=== PATIENT | female | born 1990 | race Caucasian/White ===

== ENCOUNTER 2017-10-21 10:30 | Outpatient (RCR) | payer OTHER, SELFPAY ==
--- NOTE | 2017-08-12 11:07 | PT.OIE ---
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 Address: [address] [place] [address], [id number] Email: Physical Therapy Initial Evaluation PT-OP-A Visit Information Start: 08/10/17 13:09 Freq: Status: Active Protocol: Document 08/10/17 13:10 [facility] (Rec: 08/10/17 13:44 [facility] [email or web address]) Out-Patient Physical Therapy Visit Information Visit Information Visit Type Initial Evaluation Visit Start Time 10:30 Visit Stop Time 11:15 Total Visit Minutes 45 Visit Number 1 Number of HYDRAULIC PUNCH PRESS OPERATOR Visits 0 Evaluation Information Evaluation Date 08/10/17 PT-OP-B Current Condition Start: 08/10/17 13:09 Freq: Status: Active Protocol: Document 08/10/17 13:10 [facility] (Rec: 08/10/17 13:44 [facility] [email or web address]) Current Condition History of Current Condition Onset Date following first delivery 2 years ago Current Complaints right sided hip and pelvic pain History of Current Condition Jackelyn is a 27 year old female who is 27 1/2 weeks with her second child . She is complaining of Right sided hip/groin and SI pain. This pain began after the of her first child but symtpoms have worsened with this . Pain increases with walking up stairs and with activities such as getting into and out of the car. She also notes urinary urgency that is also worsening since she became . Prior Treatments and Tests Jackelyn was given a SI belt by her doctor and she feels this has significantly helped her Treatment Goals Patient/Caregiver Goals Jackelyn's goals include reducing pain with Prior Functional Status Baseline Function- ADL's Independent Baseline Function- Mobility Independent Current Functional Impairments (Reported) Functional Limitations- Mobility/Gait limited with walking up stairs for activity, pain with single leg stance activities PT-OP-F Manual Assessment Start: 08/10/17 13:09 Freq: Status: Active Protocol: Document 08/10/17 13:10 [facility] (Rec: 08/10/17 13:44 [facility] [email or web address]) Manual Assessments Soft Tissue Assessment Soft Tissue Mobility Assessment tightness of the lumbar paraspinal musculature, myofascial restrictions in the Right piriformis and iliopsoas Joint Mobility Assessment Joint Mobility Assessment + tests for SI instability with PT-OP-J Posture/Palpation/Skin Start: 08/10/17 13:09 Freq: Status: Active Protocol: Document 08/10/17 13:10 [facility] (Rec: 08/10/17 13:44 [facility] [email or web address]) Posture Evaluation Position Standing Evaluation View Posterior L-Spine Posture Increased Lordosis Pelvis Posture Anteriorly Tilted Weight Distribution Weight Shifted Left Comments Posture Comments Jackelyn displays increased lumbar lordosis with Palpation Assessment Location Two Palpation Location lumbar and thoracic paraspinals Palpation Findings Soft Tissue Tightness Muscle Guarding One Palpation Location tenderness at the right SI joint and right pubic bone Palpation Findings Tenderness PT-OP-K Range of Motion Start: 08/10/17 13:09 Freq: Status: Active Protocol: Document 08/10/17 13:10 [facility] (Rec: 08/10/17 13:44 [facility] [email or web address]) Lumbar Spine Range of Motion Lumbar Spine Active Testing Position standing Flexion 50 ROM Limitations Soft Tissue Tightness Comments limited flexion of the lumbar spine as it is being held in extension, flattened lumbar spine noted with forward bend Hip Goniometric Range of Motion Hip Measured in Degrees Right Hip ROM WFL Yes Hip ROM Limitations Hip ROM Limitations Soft Tissue Tightness Pain Comments pain standing hip flexion and with hip IR/ER in supine and standing. PT-OP-M Strength Start: 08/10/17 13:09 Freq: Status: Active Protocol: Document 08/10/17 13:10 [facility] (Rec: 08/10/17 13:44 [facility] [email or web address]) Trunk Strength Trunk Manual Muscle Testing Core Stabilization decreased core stabilization and difficulty sustaining a transverse abdominal contraction for greater than a few seconds PT-OP-Q Treatments Start: 08/10/17 13:09 Freq: Status: Active Protocol: Document 08/10/17 13:10 [facility] (Rec: 08/10/17 13:44 [facility] [email or web address]) Therapeutic Exercises Supine Exercises 1 Supine Exercise Name isometric ball squeeze Side bilateral Reps/Minutes 10 reps holding for 5 seconds Other Exercises 1 Other Exercise Name quadraped cat/cow, alfredo pose and TA stabilization Side bilateral Reps/Minutes 10 reps Manual Therapy Treatment Manual Techniques 1 Type MET right anteriorly rotated innominant Body Position Sidelying Reps/Duration 5 reps Comments left sidelying position Self-Care/Home Management Treatment Education Patient Education Body Mechanics Home Exercise Program Joint Protection Pain Management Posture PT-OP-T Assessment and Plan Start: 08/10/17 13:09 Freq: Status: Active Protocol: Document 08/10/17 13:10 [facility] (Rec: 08/10/17 13:44 [facility] [email or web address]) Physical Therapy Assessment Rehab Potential Rehabilitation Potential Excellent Evaluation Complexity Number of Personal Factors/Comorbidities 0 Number of Body Systems Impaired 1-2 Clinical Presentation at Evaluation Stable Impairments Impairments Activity Tolerance Pain Posture ROM Soft Tissue Mobility Strength Goals Four Impairment Decreased lumbar flexion Short Term Goal (STG) Improve lumbar flexion with both manual techniques and a home flexibility program. 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 She has responded well to the SI belt and is wearing this for work related activities. With examination today h had quite a bit of SI instability and weakness of her core musculature. She stands with an exaggerated lumbar lordosis and has tightness in the lumbar paraspinals and gluteal musculature. I started her with a stretching program for her low back and core activitation exercises today safe for . She tolerated this well Please Sign and Return: I have reviewed this Plan of Care and certify that the skilled therapy services above are required to meet the patient?s needs. Physician Signature Date Printed Name and Credentials Clinical Instructor Signature Printed Name and Credentials
--- NOTE | 2017-09-09 18:42 | PT.OTN ---
Current Diagnoses Other specified diseases and conditions complicating , childbirth and the puerperium (09/09/17) Physical Therapy Treatment Note PT-OP-A Visit Information Start: 08/10/17 13:09 Freq: Status: Active Protocol: Document 09/09/17 18:36 [facility] (Rec: 09/09/17 18:42 [facility] [email or web address]) Out-Patient Physical Therapy Visit Information Visit Information Visit Type Treatment Note Visit Start Time 11:15 Visit Stop Time 12:00 Total Visit Minutes 45 Visit Number 2 Number of SAND FILLER Visits 0 PT-OP-B Current Condition Start: 08/10/17 13:09 Freq: Status: Active Protocol: Document 08/10/17 13:10 [facility] (Rec: 08/10/17 13:44 [facility] [email or web address]) Current Condition History of Current Condition Onset Date following first delivery 2 years ago Current Complaints right sided hip and pelvic pain History of Current Condition Jackelyn is a 27 year old female who is 27 1/2 weeks with her second child . She is complaining of Right sided hip/groin and SI pain. This pain began after the of her first child but symtpoms have worsened with this . Pain increases with walking up stairs and with activities such as getting into and out of the car. She also notes urinary urgency that is also worsening since she became . Prior Treatments and Tests Jackelyn was given a SI belt by her doctor and she feels this has significantly helped her Treatment Goals Patient/Caregiver Goals Jackelyn's goals include reducing pain with Prior Functional Status Baseline Function- ADL's Independent Baseline Function- Mobility Independent Current Functional Impairments (Reported) Functional Limitations- Mobility/Gait limited with walking up stairs for activity, pain with single leg stance activities PT-OP-C Subjective Start: 08/10/17 13:09 Freq: Status: Active Protocol: Document 09/09/17 18:36 [facility] (Rec: 09/09/17 18:42 [facility] [email or web address]) OP-PT Subjective Patient Comments Patient Comments Jackelyn reports some of the exercises were difficult for her to do but she has been trying. She was sore for a few days after the first visit and starting her new exercises. Her SI pain is on the left side today PT-OP-F Manual Assessment Start: 08/10/17 13:09 Freq: Status: Active Protocol: Document 08/10/17 13:10 [facility] (Rec: 08/10/17 13:44 [facility] [email or web address]) Manual Assessments Soft Tissue Assessment Soft Tissue Mobility Assessment tightness of the lumbar paraspinal musculature, myofascial restrictions in the Right piriformis and iliopsoas Joint Mobility Assessment Joint Mobility Assessment + tests for SI instability with PT-OP-J Posture/Palpation/Skin Start: 08/10/17 13:09 Freq: Status: Active Protocol: Document 08/10/17 13:10 [facility] (Rec: 08/10/17 13:44 [facility] [email or web address]) Posture Evaluation Position Standing Evaluation View Posterior L-Spine Posture Increased Lordosis Pelvis Posture Anteriorly Tilted Weight Distribution Weight Shifted Left Comments Posture Comments Jackelyn displays increased lumbar lordosis with Palpation Assessment Location Two Palpation Location lumbar and thoracic paraspinals Palpation Findings Soft Tissue Tightness Muscle Guarding One Palpation Location tenderness at the right SI joint and right pubic bone Palpation Findings Tenderness PT-OP-K Range of Motion Start: 08/10/17 13:09 Freq: Status: Active Protocol: Document 08/10/17 13:10 [facility] (Rec: 08/10/17 13:44 [facility] [email or web address]) Lumbar Spine Range of Motion Lumbar Spine Active Testing Position standing Flexion 50 ROM Limitations Soft Tissue Tightness Comments limited flexion of the lumbar spine as it is being held in extension, flattened lumbar spine noted with forward bend Hip Goniometric Range of Motion Hip Measured in Degrees Right Hip ROM WFL Yes Hip ROM Limitations Hip ROM Limitations Soft Tissue Tightness Pain Comments pain standing hip flexion and with hip IR/ER in supine and standing. PT-OP-M Strength Start: 08/10/17 13:09 Freq: Status: Active Protocol: Document 08/10/17 13:10 [facility] (Rec: 08/10/17 13:44 [facility] [email or web address]) Trunk Strength Trunk Manual Muscle Testing Core Stabilization decreased core stabilization and difficulty sustaining a transverse abdominal contraction for greater than a few seconds PT-OP-Q Treatments Start: 08/10/17 13:09 Freq: Status: Active Protocol: Document 09/09/17 18:36 [facility] (Rec: 09/09/17 18:42 [facility] [email or web address]) Therapeutic Exercises Supine Exercises 2 Supine Exercise Name piriformis stretch Comments given in both supine and seated positions 1 Supine Exercise Name isometric ball squeeze Side bilateral Reps/Minutes 10 reps holding for 5 seconds Other Exercises 1 Other Exercise Name quadraped cat/cow, alfredo pose and TA stabilization Side bilateral Reps/Minutes 10 reps Manual Therapy Treatment Soft Tissue Mobilization 1 Body Location STM low back and sacral region and piriformis Comments body pillow used for comfort and positioning with . Manual Techniques 1 Type MET right anteriorly rotated innominant Body Position Sidelying Reps/Duration 5 reps Comments left sidelying position PT-OP-T Assessment and Plan Start: 08/10/17 13:09 Freq: Status: Active Protocol: Document 09/09/17 18:36 [facility] (Rec: 09/09/17 18:42 [facility] [email or web address]) Physical Therapy Assessment Assessment Summary Assessment Jackelyn tolerated treatment well today and notes improved movement of her hip following STM and stretching. She was able to sit and cross her ankle over the opp knee. Physical Therapy Plan Frequency and Duration Frequency of Treatment 1x/Week Duration of Treatment 8 weeks Plan of Care Start Date 08/10/17 Plan of Care End Date 10/05/17 Therapeutic Interventions Therapeutic Interventions Home Exercise Program Manual Therapy Patient/Caregiver Education Self-Care/Home Management Soft Tissue Mobilization Therapeutic Exercises Next Visit Focus/Plan Next Visit Plan continue to focus on SI stabilization, lumbar spine flexion, decreasing tightness in the gluteals and body mechanics training with
--- NOTE | 2017-09-22 10:56 | PT.OTN ---
Current Diagnoses Other specified diseases and conditions complicating , childbirth and the puerperium (09/16/17) Physical Therapy Treatment Note PT-OP-A Visit Information Start: 08/10/17 13:09 Freq: Status: Active Protocol: Document 09/16/17 10:30 [facility] (Rec: 09/22/17 10:56 [facility] [email or web address]) Out-Patient Physical Therapy Visit Information Visit Information Visit Type Treatment Note Visit Start Time 10:30 Visit Stop Time 11:15 Total Visit Minutes 45 Visit Number 3 Number of PIT CRANE OPERATOR Visits 0 PT-OP-B Current Condition Start: 08/10/17 13:09 Freq: Status: Active Protocol: Document 08/10/17 13:10 [facility] (Rec: 08/10/17 13:44 [facility] [email or web address]) Current Condition History of Current Condition Onset Date following first delivery 2 years ago Current Complaints right sided hip and pelvic pain History of Current Condition Jackelyn is a 27 year old female who is 27 1/2 weeks with her second child . She is complaining of Right sided hip/groin and SI pain. This pain began after the of her first child but symtpoms have worsened with this . Pain increases with walking up stairs and with activities such as getting into and out of the car. She also notes urinary urgency that is also worsening since she became . Prior Treatments and Tests Jackelyn was given a SI belt by her doctor and she feels this has significantly helped her Treatment Goals Patient/Caregiver Goals Jackelyn's goals include reducing pain with Prior Functional Status Baseline Function- ADL's Independent Baseline Function- Mobility Independent Current Functional Impairments (Reported) Functional Limitations- Mobility/Gait limited with walking up stairs for activity, pain with single leg stance activities PT-OP-C Subjective Start: 08/10/17 13:09 Freq: Status: Active Protocol: Document 09/16/17 10:30 [facility] (Rec: 09/22/17 10:56 [facility] [email or web address]) OP-PT Subjective Patient Comments Patient Comments Jackelyn reports she has been working on her home exercises PT-OP-F Manual Assessment Start: 08/10/17 13:09 Freq: Status: Active Protocol: Document 08/10/17 13:10 [facility] (Rec: 08/10/17 13:44 [facility] [email or web address]) Manual Assessments Soft Tissue Assessment Soft Tissue Mobility Assessment tightness of the lumbar paraspinal musculature, myofascial restrictions in the Right piriformis and iliopsoas Joint Mobility Assessment Joint Mobility Assessment + tests for SI instability with PT-OP-J Posture/Palpation/Skin Start: 08/10/17 13:09 Freq: Status: Active Protocol: Document 08/10/17 13:10 [facility] (Rec: 08/10/17 13:44 [facility] [email or web address]) Posture Evaluation Position Standing Evaluation View Posterior L-Spine Posture Increased Lordosis Pelvis Posture Anteriorly Tilted Weight Distribution Weight Shifted Left Comments Posture Comments Jackelyn displays increased lumbar lordosis with Palpation Assessment Location Two Palpation Location lumbar and thoracic paraspinals Palpation Findings Soft Tissue Tightness Muscle Guarding One Palpation Location tenderness at the right SI joint and right pubic bone Palpation Findings Tenderness PT-OP-K Range of Motion Start: 08/10/17 13:09 Freq: Status: Active Protocol: Document 08/10/17 13:10 [facility] (Rec: 08/10/17 13:44 [facility] [email or web address]) Lumbar Spine Range of Motion Lumbar Spine Active Testing Position standing Flexion 50 ROM Limitations Soft Tissue Tightness Comments limited flexion of the lumbar spine as it is being held in extension, flattened lumbar spine noted with forward bend Hip Goniometric Range of Motion Hip Measured in Degrees Right Hip ROM WFL Yes Hip ROM Limitations Hip ROM Limitations Soft Tissue Tightness Pain Comments pain standing hip flexion and with hip IR/ER in supine and standing. PT-OP-M Strength Start: 08/10/17 13:09 Freq: Status: Active Protocol: Document 08/10/17 13:10 [facility] (Rec: 08/10/17 13:44 [facility] [email or web address]) Trunk Strength Trunk Manual Muscle Testing Core Stabilization decreased core stabilization and difficulty sustaining a transverse abdominal contraction for greater than a few seconds PT-OP-Q Treatments Start: 08/10/17 13:09 Freq: Status: Active Protocol: Document 09/16/17 10:30 [facility] (Rec: 09/22/17 10:56 [facility] [email or web address]) Therapeutic Exercises Supine Exercises 2 Supine Exercise Name piriformis stretch Comments given in both supine and seated positions 1 Supine Exercise Name isometric ball squeeze Side bilateral Reps/Minutes 10 reps holding for 5 seconds Other Exercises 1 Other Exercise Name quadraped cat/cow, alfredo pose and TA stabilization Side bilateral Reps/Minutes 10 reps Manual Therapy Treatment Soft Tissue Mobilization 1 Body Location STM low back and sacral region and piriformis Comments body pillow used for comfort and positioning with . PT-OP-T Assessment and Plan Start: 08/10/17 13:09 Freq: Status: Active Protocol: Document 09/16/17 10:30 [facility] (Rec: 09/22/17 10:56 [facility] [email or web address]) Physical Therapy Assessment Assessment Summary Assessment Tolerating treatment welll and demonstrating improved TA recruitment Physical Therapy Plan Frequency and Duration Frequency of Treatment 1x/Week Duration of Treatment 8 weeks Plan of Care Start Date 08/10/17 Plan of Care End Date 10/05/17 Therapeutic Interventions Therapeutic Interventions Home Exercise Program Manual Therapy Patient/Caregiver Education Self-Care/Home Management Soft Tissue Mobilization Therapeutic Exercises Next Visit Focus/Plan Next Visit Plan continue to focus on SI stabilization, lumbar spine flexion, decreaseing tightness in the gluteals and body mechnics training with
--- NOTE | 2017-09-23 16:31 | PT.OTN ---
Current Diagnoses Other specified diseases and conditions complicating , childbirth and the puerperium (09/23/17) Physical Therapy Treatment Note PT-OP-A Visit Information Start: 08/10/17 13:09 Freq: Status: Active Protocol: Document 09/23/17 16:25 [facility] (Rec: 09/23/17 16:30 [facility] [email or web address]) Out-Patient Physical Therapy Visit Information Visit Information Visit Type Treatment Note Visit Start Time 11:15 Visit Stop Time 12:00 Total Visit Minutes 40 Visit Number 4 PT-OP-B Current Condition Start: 08/10/17 13:09 Freq: Status: Active Protocol: Document 08/10/17 13:10 [facility] (Rec: 08/10/17 13:44 [facility] [email or web address]) Current Condition History of Current Condition Onset Date following first delivery 2 years ago Current Complaints right sided hip and pelvic pain History of Current Condition Jackelyn is a 27 year old female who is 27 1/2 weeks with her second child . She is complaining of Right sided hip/groin and SI pain. This pain began after the of her first child but symtpoms have worsened with this . Pain increases with walking up stairs and with activities such as getting into and out of the car. She also notes urinary urgency that is also worsening since she became . Prior Treatments and Tests Jackelyn was given a SI belt by her doctor and she feels this has significantly helped her Treatment Goals Patient/Caregiver Goals Jackelyn's goals include reducing pain with Prior Functional Status Baseline Function- ADL's Independent Baseline Function- Mobility Independent Current Functional Impairments (Reported) Functional Limitations- Mobility/Gait limited with walking up stairs for activity, pain with single leg stance activities PT-OP-C Subjective Start: 08/10/17 13:09 Freq: Status: Active Protocol: Document 09/23/17 16:25 [facility] (Rec: 09/23/17 16:30 [facility] [email or web address]) OP-PT Subjective Patient Comments Patient Comments Jackelyn reports she is doing better, still has the left sided sciatica but is not in as much pain PT-OP-F Manual Assessment Start: 08/10/17 13:09 Freq: Status: Active Protocol: Document 08/10/17 13:10 [facility] (Rec: 08/10/17 13:44 [facility] [email or web address]) Manual Assessments Soft Tissue Assessment Soft Tissue Mobility Assessment tightness of the lumbar paraspinal musculature, myofascial restrictions in the Right piriformis and iliopsoas Joint Mobility Assessment Joint Mobility Assessment + tests for SI instability with PT-OP-J Posture/Palpation/Skin Start: 08/10/17 13:09 Freq: Status: Active Protocol: Document 08/10/17 13:10 [facility] (Rec: 08/10/17 13:44 [facility] [email or web address]) Posture Evaluation Position Standing Evaluation View Posterior L-Spine Posture Increased Lordosis Pelvis Posture Anteriorly Tilted Weight Distribution Weight Shifted Left Comments Posture Comments Jackelyn displays increased lumbar lordosis with Palpation Assessment Location Two Palpation Location lumbar and thoracic paraspinals Palpation Findings Soft Tissue Tightness Muscle Guarding One Palpation Location tenderness at the right SI joint and right pubic bone Palpation Findings Tenderness PT-OP-K Range of Motion Start: 08/10/17 13:09 Freq: Status: Active Protocol: Document 08/10/17 13:10 [facility] (Rec: 08/10/17 13:44 [facility] [email or web address]) Lumbar Spine Range of Motion Lumbar Spine Active Testing Position standing Flexion 50 ROM Limitations Soft Tissue Tightness Comments limited flexion of the lumbar spine as it is being held in extension, flattened lumbar spine noted with forward bend Hip Goniometric Range of Motion Hip Measured in Degrees Right Hip ROM WFL Yes Hip ROM Limitations Hip ROM Limitations Soft Tissue Tightness Pain Comments pain standing hip flexion and with hip IR/ER in supine and standing. PT-OP-M Strength Start: 08/10/17 13:09 Freq: Status: Active Protocol: Document 08/10/17 13:10 [facility] (Rec: 08/10/17 13:44 [facility] [email or web address]) Trunk Strength Trunk Manual Muscle Testing Core Stabilization decreased core stabilization and difficulty sustaining a transverse abdominal contraction for greater than a few seconds PT-OP-Q Treatments Start: 08/10/17 13:09 Freq: Status: Active Protocol: Document 09/23/17 16:25 [facility] (Rec: 09/23/17 16:30 [facility] [email or web address]) Manual Therapy Treatment Soft Tissue Mobilization 1 Body Location STM low back and sacral region and piriformis Comments body pillow used for comfort and positioning with . Manual Techniques 2 Type manual stretch for the hamstrings and piriformis 1 Type MET right anteriorly rotated innominant Body Position Sidelying Reps/Duration 5 reps Comments left sidelying position PT-OP-T Assessment and Plan Start: 08/10/17 13:09 Freq: Status: Active Protocol: Document 09/23/17 16:25 [facility] (Rec: 09/23/17 16:30 [facility] [email or web address]) Physical Therapy Assessment Assessment Summary Assessment Jackelyn reports she has been doing all her exercises at home and is doing better tightening the lower abdominal wall. Decreased sacral myofascial tightness today Physical Therapy Plan Frequency and Duration Frequency of Treatment 1x/Week Duration of Treatment 8 weeks Plan of Care Start Date 08/10/17 Plan of Care End Date 10/05/17 Therapeutic Interventions Therapeutic Interventions Home Exercise Program Manual Therapy Patient/Caregiver Education Self-Care/Home Management Soft Tissue Mobilization Therapeutic Exercises Next Visit Focus/Plan Next Visit Plan continue to focus on SI stabilization, lumbar spine flexion, decreaseing tightness in the gluteals and body mechnics training with
--- NOTE | 2017-09-30 18:41 | PT.OTN ---
Current Diagnoses Other specified diseases and conditions complicating , childbirth and the puerperium (09/30/17) Physical Therapy Treatment Note PT-OP-A Visit Information Start: 08/10/17 13:09 Freq: Status: Active Protocol: Document 09/30/17 10:30 AM[facility] (Rec: 09/30/17 18:41 AMH [email or web address]) Out-Patient Physical Therapy Visit Information Visit Information Visit Type Treatment Note Visit Start Time 10:30 Visit Stop Time 11:15 Total Visit Minutes 40 Visit Number 5 PT-OP-B Current Condition Start: 08/10/17 13:09 Freq: Status: Active Protocol: Document 08/10/17 13:10 AMH (Rec: 08/10/17 13:44 AMH [email or web address]) Current Condition History of Current Condition Onset Date following first delivery 2 years ago Current Complaints right sided hip and pelvic pain History of Current Condition Jackelyn is a 27 year old female who is 27 1/2 weeks with her second child . She is complaining of Right sided hip/groin and SI pain. This pain began after the of her first child but symtpoms have worsened with this . Pain increases with walking up stairs and with activities such as getting into and out of the car. She also notes urinary urgency that is also worsening since she became . Prior Treatments and Tests Jackelyn was given a SI belt by her doctor and she feels this has significantly helped her Treatment Goals Patient/Caregiver Goals Jackelyn's goals include reducing pain with Prior Functional Status Baseline Function- ADL's Independent Baseline Function- Mobility Independent Current Functional Impairments (Reported) Functional Limitations- Mobility/Gait limited with walking up stairs for activity, pain with single leg stance activities PT-OP-C Subjective Start: 08/10/17 13:09 Freq: Status: Active Protocol: Document 09/30/17 10:30 AMH (Rec: 09/30/17 18:41 AMH [email or web address]) OP-PT Subjective Patient Comments Patient Comments Jackelyn reports she can feel like baby has grown, she can feel increased Low back pressure, treatments are helping her PT-OP-F Manual Assessment Start: 08/10/17 13:09 Freq: Status: Active Protocol: Document 08/10/17 13:10 AMH (Rec: 08/10/17 13:44 AMH [email or web address]) Manual Assessments Soft Tissue Assessment Soft Tissue Mobility Assessment tightness of the lumbar paraspinal musculature, myofascial restrictions in the Right piriformis and iliopsoas Joint Mobility Assessment Joint Mobility Assessment + tests for SI instability with PT-OP-J Posture/Palpation/Skin Start: 08/10/17 13:09 Freq: Status: Active Protocol: Document 08/10/17 13:10 AMH (Rec: 08/10/17 13:44 AMH [email or web address]) Posture Evaluation Position Standing Evaluation View Posterior L-Spine Posture Increased Lordosis Pelvis Posture Anteriorly Tilted Weight Distribution Weight Shifted Left Comments Posture Comments Jackelyn displays increased lumbar lordosis with Palpation Assessment Location Two Palpation Location lumbar and thoracic paraspinals Palpation Findings Soft Tissue Tightness Muscle Guarding One Palpation Location tenderness at the right SI joint and right pubic bone Palpation Findings Tenderness PT-OP-K Range of Motion Start: 08/10/17 13:09 Freq: Status: Active Protocol: Document 08/10/17 13:10 AMH (Rec: 08/10/17 13:44 AMH [email or web address]) Lumbar Spine Range of Motion Lumbar Spine Active Testing Position standing Flexion 50 ROM Limitations Soft Tissue Tightness Comments limited flexion of the lumbar spine as it is being held in extension, flattened lumbar spine noted with forward bend Hip Goniometric Range of Motion Hip Measured in Degrees Right Hip ROM WFL Yes Hip ROM Limitations Hip ROM Limitations Soft Tissue Tightness Pain Comments pain standing hip flexion and with hip IR/ER in supine and standing. PT-OP-M Strength Start: 08/10/17 13:09 Freq: Status: Active Protocol: Document 08/10/17 13:10 AMH (Rec: 08/10/17 13:44 AMH [email or web address]) Trunk Strength Trunk Manual Muscle Testing Core Stabilization decreased core stabilization and difficulty sustaining a transverse abdominal contraction for greater than a few seconds PT-OP-Q Treatments Start: 08/10/17 13:09 Freq: Status: Active Protocol: Document 09/30/17 10:30 AMH (Rec: 09/30/17 18:41 AMH [email or web address]) Manual Therapy Treatment Soft Tissue Mobilization 1 Body Location STM low back and sacral region and piriformis Comments body pillow used for comfort and positioning with . Manual Techniques 3 Type sacral counter nutation Comments prone over body pillow, grade 11 with MFR 2 Type manual stretch for the hamstrings and piriformis 1 Type MET right anteriorly rotated innominant Body Position Sidelying Reps/Duration 5 reps Comments left sidelying position PT-OP-T Assessment and Plan Start: 08/10/17 13:09 Freq: Status: Active Protocol: Document 09/30/17 10:30 AMH (Rec: 09/30/17 18:41 AMH [email or web address]) Physical Therapy Assessment Assessment Summary Assessment Jackelyn notes sacral counter nutation techniques are helpful at relieving pain Physical Therapy Plan Frequency and Duration Frequency of Treatment 1x/Week Duration of Treatment 8 weeks Plan of Care Start Date 08/10/17 Plan of Care End Date 10/05/17 Therapeutic Interventions Therapeutic Interventions Home Exercise Program Manual Therapy Patient/Caregiver Education Self-Care/Home Management Soft Tissue Mobilization Therapeutic Exercises Next Visit Focus/Plan Next Note Type Treatment Note Next Visit Plan continue to focus on SI stabilization, lumbar spine flexion, decreaseing tightness in the gluteals and body mechnics training with
--- NOTE | 2017-10-14 13:36 | PT.OTN ---
Current Diagnoses Other specified diseases and conditions complicating , childbirth and the puerperium (10/14/17) Physical Therapy Treatment Note PT-OP-A Visit Information Start: 08/10/17 13:09 Freq: Status: Active Protocol: Document 10/14/17 13:19 AMH (Rec: 10/14/17 13:36 AMH [email or web address]) Out-Patient Physical Therapy Visit Information Visit Information Visit Type Progress Note Visit Start Time 10:30 Visit Stop Time 11:15 Total Visit Minutes 40 Visit Number 6 PT-OP-B Current Condition Start: 08/10/17 13:09 Freq: Status: Active Protocol: Document 08/10/17 13:10 AMH (Rec: 08/10/17 13:44 AMH [email or web address]) Current Condition History of Current Condition Onset Date following first delivery 2 years ago Current Complaints right sided hip and pelvic pain History of Current Condition Jackelyn is a 27 year old female who is 27 1/2 weeks with her second child . She is complaining of Right sided hip/groin and SI pain. This pain began after the of her first child but symtpoms have worsened with this . Pain increases with walking up stairs and with activities such as getting into and out of the car. She also notes urinary urgency that is also worsening since she became . Prior Treatments and Tests Jackelyn was given a SI belt by her doctor and she feels this has significantly helped her Treatment Goals Patient/Caregiver Goals Jackelyn's goals include reducing pain with Prior Functional Status Baseline Function- ADL's Independent Baseline Function- Mobility Independent Current Functional Impairments (Reported) Functional Limitations- Mobility/Gait limited with walking up stairs for activity, pain with single leg stance activities PT-OP-C Subjective Start: 08/10/17 13:09 Freq: Status: Active Protocol: Document 10/14/17 13:19 AMH (Rec: 10/14/17 13:36 AMH [email or web address]) OP-PT Subjective Patient Comments Patient Comments Increasing pressure in the pelvis region from baby. Feeling left sciatica and bilateral SI pain. PT-OP-F Manual Assessment Start: 08/10/17 13:09 Freq: Status: Active Protocol: Document 08/10/17 13:10 AMH (Rec: 08/10/17 13:44 AMH [email or web address]) Manual Assessments Soft Tissue Assessment Soft Tissue Mobility Assessment tightness of the lumbar paraspinal musculature, myofascial restrictions in the Right piriformis and iliopsoas Joint Mobility Assessment Joint Mobility Assessment + tests for SI instability with PT-OP-J Posture/Palpation/Skin Start: 08/10/17 13:09 Freq: Status: Active Protocol: Document 10/14/17 13:19 AMH (Rec: 10/14/17 13:36 AMH [email or web address]) Palpation Assessment Location Two Palpation Location lumbar and thoracic paraspinals Palpation Findings Soft Tissue Tightness Muscle Guarding PT-OP-K Range of Motion Start: 08/10/17 13:09 Freq: Status: Active Protocol: Document 08/10/17 13:10 AMH (Rec: 08/10/17 13:44 AMH [email or web address]) Lumbar Spine Range of Motion Lumbar Spine Active Testing Position standing Flexion 50 ROM Limitations Soft Tissue Tightness Comments limited flexion of the lumbar spine as it is being held in extension, flattened lumbar spine noted with forward bend Hip Goniometric Range of Motion Hip Measured in Degrees Right Hip ROM WFL Yes Hip ROM Limitations Hip ROM Limitations Soft Tissue Tightness Pain Comments pain standing hip flexion and with hip IR/ER in supine and standing. PT-OP-M Strength Start: 08/10/17 13:09 Freq: Status: Active Protocol: Document 08/10/17 13:10 AMH (Rec: 08/10/17 13:44 AMH [email or web address]) Trunk Strength Trunk Manual Muscle Testing Core Stabilization decreased core stabilization and difficulty sustaining a transverse abdominal contraction for greater than a few seconds PT-OP-Q Treatments Start: 08/10/17 13:09 Freq: Status: Active Protocol: Document 10/14/17 13:19 AMH (Rec: 10/14/17 13:36 AMH [email or web address]) Manual Therapy Treatment Soft Tissue Mobilization 1 Body Location STM low back and sacral region and piriformis Comments body pillow used for comfort and positioning with . Manual Techniques 4 Type sidelying iliopsoas stretch 3 Type sacral counter nutation Comments prone over body pillow, grade 11 with MFR 2 Type manual stretch for the hamstrings and piriformis 1 Type MET left anterior rotation Body Position Sidelying Reps/Duration 5 Comments right sidelying position PT-OP-T Assessment and Plan Start: 08/10/17 13:09 Freq: Status: Active Protocol: Document 10/14/17 13:19 AMH (Rec: 10/14/17 13:36 [facility] [email or web address]) Physical Therapy Assessment Assessment Summary Assessment Jackelyn notes sacral counter nutation techniques are helpful at relieving pain. She is two weeks away from her scheduled . She continues to gain releif from PT visits Physical Therapy Plan Frequency and Duration Frequency of Treatment 1x/Week Duration of Treatment 8 weeks Plan of Care Start Date 10/05/17 Plan of Care End Date 11/02/17 Therapeutic Interventions Therapeutic Interventions Home Exercise Program Manual Therapy Patient/Caregiver Education Self-Care/Home Management Soft Tissue Mobilization Therapeutic Exercises Next Visit Focus/Plan Next Note Type Treatment Note Next Visit Plan continue to focus on SI stabilization, lumbar spine flexion, decreaseing tightness in the gluteals and body mechnics training with
--- NOTE | 2017-10-24 14:27 | PT.OTN ---
Current Diagnoses Other specified diseases and conditions complicating , childbirth and the puerperium (10/21/17) Physical Therapy Treatment Note PT-OP-A Visit Information Start: 08/10/17 13:09 Freq: Status: Active Protocol: Document 10/21/17 10:30 AMH (Rec: 10/24/17 14:27 AMH [email or web address]) Out-Patient Physical Therapy Visit Information Visit Information Visit Type Treatment Note Visit Start Time 10:30 Visit Stop Time 11:15 Total Visit Minutes 40 Visit Number 7 PT-OP-B Current Condition Start: 08/10/17 13:09 Freq: Status: Active Protocol: Document 08/10/17 13:10 AMH (Rec: 08/10/17 13:44 AMH [email or web address]) Current Condition History of Current Condition Onset Date following first delivery 2 years ago Current Complaints right sided hip and pelvic pain History of Current Condition Jackelyn is a 27 year old female who is 27 1/2 weeks with her second child . She is complaining of Right sided hip/groin and SI pain. This pain began after the of her first child but symtpoms have worsened with this . Pain increases with walking up stairs and with activities such as getting into and out of the car. She also notes urinary urgency that is also worsening since she became . Prior Treatments and Tests Jackelyn was given a SI belt by her doctor and she feels this has significantly helped her Treatment Goals Patient/Caregiver Goals Jackelyn's goals include reducing pain with Prior Functional Status Baseline Function- ADL's Independent Baseline Function- Mobility Independent Current Functional Impairments (Reported) Functional Limitations- Mobility/Gait limited with walking up stairs for activity, pain with single leg stance activities PT-OP-C Subjective Start: 08/10/17 13:09 Freq: Status: Active Protocol: Document 10/21/17 10:30 AMH (Rec: 10/24/17 14:27 AMH [email or web address]) OP-PT Subjective Patient Comments Patient Comments Reports she is not experiencing any sciatic pain now but can't lay flat any more PT-OP-F Manual Assessment Start: 08/10/17 13:09 Freq: Status: Active Protocol: Document 08/10/17 13:10 AMH (Rec: 08/10/17 13:44 AMH [email or web address]) Manual Assessments Soft Tissue Assessment Soft Tissue Mobility Assessment tightness of the lumbar paraspinal musculature, myofascial restrictions in the Right piriformis and iliopsoas Joint Mobility Assessment Joint Mobility Assessment + tests for SI instability with PT-OP-J Posture/Palpation/Skin Start: 08/10/17 13:09 Freq: Status: Active Protocol: Document 10/14/17 13:19 AMH (Rec: 10/14/17 13:36 AMH [email or web address]) Palpation Assessment Location Two Palpation Location lumbar and thoracic paraspinals Palpation Findings Soft Tissue Tightness Muscle Guarding PT-OP-K Range of Motion Start: 08/10/17 13:09 Freq: Status: Active Protocol: Document 08/10/17 13:10 AMH (Rec: 08/10/17 13:44 AMH [email or web address]) Lumbar Spine Range of Motion Lumbar Spine Active Testing Position standing Flexion 50 ROM Limitations Soft Tissue Tightness Comments limited flexion of the lumbar spine as it is being held in extension, flattened lumbar spine noted with forward bend Hip Goniometric Range of Motion Hip Measured in Degrees Right Hip ROM WFL Yes Hip ROM Limitations Hip ROM Limitations Soft Tissue Tightness Pain Comments pain standing hip flexion and with hip IR/ER in supine and standing. PT-OP-M Strength Start: 08/10/17 13:09 Freq: Status: Active Protocol: Document 08/10/17 13:10 AMH (Rec: 08/10/17 13:44 AMH [email or web address]) Trunk Strength Trunk Manual Muscle Testing Core Stabilization decreased core stabilization and difficulty sustaining a transverse abdominal contraction for greater than a few seconds PT-OP-Q Treatments Start: 08/10/17 13:09 Freq: Status: Active Protocol: Document 10/21/17 10:30 AMH (Rec: 10/24/17 14:27 AMH [email or web address]) Manual Therapy Treatment Soft Tissue Mobilization 1 Body Location STM low back and sacral region and piriformis Comments treatment done in seated and sidelying positions Manual Techniques 4 Type sidelying iliopsoas stretch 3 Type sacral counter nutation Comments in a seated position PT-OP-T Assessment and Plan Start: 08/10/17 13:09 Freq: Status: Active Protocol: Document 10/21/17 10:30 AMH (Rec: 10/24/17 14:27 AMH [email or web address]) Physical Therapy Assessment Assessment Summary Assessment Jackelyn notes sacral counter nutation techniques are helpful at relieving pain. Her scheduled C section is 9./ 7/18. She will be discharged at this time until her post period Physical Therapy Plan Discharge Physical Therapy Discharge Reasons Goals Met
== END 2017-12-09 10:37 ==
LOC: PHYS 10:30
PROVIDERS: Visit Provider Obstetrics & Gynecology
DX: O99.89 Other specified diseases and conditions complicating pregnancy, childbirth and the puerperium (principal)
CPT/HCPCS: 97110; 97140; 97161

== ENCOUNTER 2017-11-05 06:05 | Inpatient (IN) | payer OTHER, SELFPAY ==
[2017-11-05] VITALS (7 sets, daily range): BP systolic 97–108; BP diastolic 50–68; PULSE 62–76; RESP 8–16; TEMP 36.3; O2SAT 99–100
--- NOTE | 2017-11-05 07:57 | PM.PREOP ---
Pre-operative Note Interval Note Pre-op Check: Yes History & Physical Reviewed by Physician Changes: No
[2017-11-05 08:11] LABS: Add Manual Diff / Slide Review NO; Basophils Percent Auto 0.8 % (0-2); Eosinophils Percent Auto 0.5 % (2-4); Hematocrit 35.7 % (36-46); Hemoglobin 12.3 g/dL (12.0-16.0); Lymphocytes Percent Auto 25.8 % (25-40); Mean Corpuscular HGB Conc 34.4 % (30-36); Mean Corpuscular Hemoglobin 30.9 PG (26-34); Mean Corpuscular Volume 89.7 fL (80-100); Neutrophils Absolute Auto 5800 /uL (3000-5900); Neutrophils Percent Auto 64.9 % (50-75); Platelet Count 153 X10^3/uL (150-400); Red Blood Cell Count 3.98 X10^6/uL (4.0-5.2); Red Cell Distribution Width 13.2 % (11.6-14.8)
[2017-11-05] MEDS: CEFAZOLIN 2 GM/100 ML FROZ.PIGGY IV (08:25)
--- NOTE | 2017-11-05 08:55 | SUR.OPER ---
Supine on Padded OR bed, head on pillow, safety belt at thigh, arms secured on padded arm boards at <90 degrees abduction. Bump under right buttock. Legs uncrossed with pillow under knees, gel pad to heels, tape over blanket to lower legs.
--- NOTE | 2017-11-05 09:11 | SUR.OPER ---
Healthy girl born 0840. heart tones 132 beats per minute at , 160 b/m 5 minutes after.
[2017-11-05] MEDS: LACTATED RINGERS 1,000 ML 100 ML IV ×2 (09:15→10:30)
[2017-11-05] MEDS: LACTATED RINGERS 1,000 ML 42 ML IV ×2 (09:16→10:22)
--- NOTE | 2017-11-05 09:51 | SUR.OPER ---
cordblood and placenta sent to l&d.
[2017-11-05] MEDS: fentaNYL 100 MCG/2 ML INJ 50 MCG IV (09:57)
[2017-11-05] MEDS: KETOROLAC 30 MG/ML VIAL IV ×3 (10:06→22:25)
--- NOTE | 2017-11-05 10:12 | PM.GYNOP.1 ---
Operative Date/Time/Diagnoses Date of procedure: 11/05/17 Time of procedure: 08:12 Pre-op diagnosis: Term , prior Post-op diagnosis: other (RASHARD, pelvic adhesions) Procedure: Procedures Operation Date: 11/05/17 07:45 Actual Procedures Side Surgeon p Section - Repeat Daisy Lynn MD Indications: The patient is a 27-year-old 2 para 1 at 39+ 5 weeks gestation here for scheduled repeat section. Her and obstetric history are notable for a prior with her last delivery, complicated by a hemorrhage with need to place a B-Chambers suture. This has also been notable for obesity, glucose intolerance, depression (takes Zoloft 50 mg daily), chronic low back pain, and intermittent premature ventricular contractions. The expectations, risks, benefits, limitations, expectations of surgery were discussed, and the consent was reviewed and signed prior to the date of surgery. Surgeon: Daisy Lynn Cnc Machinist 2Nd Shift: Cedrick Chisholm Anesthesia Type: Spinal Operative Notes Findings: Mild fascial adhesions were present. There were thin lower uterine segment adhesions and bladder adhesions. There was a dense bladder adhesion to the right lower aspect of the uterine incision. Fallopian tubes and ovaries were normal in appearance. Amniotic fluid was clear, and the baby was delivered from the right occiput transverse position. No nuchal cord was noted. The baby had excellent tone and color on the maternal abdomen. Closure Type: primary Specimen(s): none Applied: catheter Estimated blood loss (mL): 750 Blood products transfused: none Procedure in detail: The patient was taken to the operating room where spinal anesthetic was administered. She was given a small dose of Propofol to help with anxiety and achievement of optimal position for the spinal. She was then placed in the supine position with a hip roll under her right hip. A Castro catheter was placed, then the abdomen was prepped and draped in a sterile fashion. A procedure time-out was then performed. A Pfannenstiel skin incision was then made over the old scar using the scalpel. The subcutaneous tissue was then dissected down to the level of fascia using sharp dissection. The rectus fascia was then nicked at the midline, and this incision was extended bilaterally using curved Castle scissors and sharp dissection. The superior aspect of the rectus fascia was then grasped at the midline with 2 Adalgisa clamps and tented up while the rectus muscle was dissected off posteriorly using blunt dissection. Bovie cautery was utilized to ensure hemostasis. The Adalgisa clamps were then placed at the inferior aspect of the rectus fascia, and the rectus muscle was dissected off posteriorly in a similar fashion. The rectus muscle bellies were then bluntly dissected at the midline. The posterior sheath was then incised with Metzenbaum scissors, and the peritoneal opening enlarged using gentle traction from the surgeons. Bladder and peritoneal adhesions were noted and with a combination of blunt and sharp dissection. Bladder blade was then placed, and a bladder flap created in the usual fashion using Metzenbaum scissors. A low transverse hysterotomy incision was then made with a scalpel. The vertex was palpated, elevated, and delivered. Shoulders and corpus followed easily thereafter. Mouth and nose were suctioned, and the had excellent tone and color. Cord was clamped and cut, and the baby was taken to the warmer where Pedatrics team was in attendance for delivery. Cord blood was then obtained. The placenta was then removed with a combination of manual and expression maneuvers. Uterine tone was good with massage and initiation of Pitocin. The cervix was dilated with a ring forcep. The hysterotomy incision was then closed with a running locked suture of #1 Chromic followed by an imbricating suture using #1 Chromic. A dense right bladder adhesion was dissected sharply, taking care to avoid injury to the bladder. A [id number] suture was placed at the right apex of the incision at the location of some ongoing bleeding. The posterior cul-de-sac was suctioned and irrigated, and the uterus was replaced into the maternal abdomen. The peritoneal gutters were then wiped bilaterally with moist sponges, and the uterine incision was inspected. Some residual bleeding was controlled with Bovie cautery and a [id number] suture. The uterus was again exteriorized onto the maternal abdomen to help dissect an additional bladder adhesion on the right. This was performed with sharp dissection. There was no bleeding noted at this point. The peritoneum and rectus muscle bellies were then reapproximated at the midline using a running nonlocked suture of 2 Vicryl. The rectus muscle was then inspected and no residual bleeding noted. The rectus fascia was then closed with a nonlocked suture of [place] starting at the patient's left side and working toward the right. Subcutaneous tissue was then copiously irrigated and suctioned. Any residual bleeding was controlled with Bovie cautery. The tissue was then reapproximated with interrupted sutures of 2 Vicryl. The skin was then closed with a running subcuticular stitch of 4 0 Monocryl. Mastisol and Steri-Strips were then applied followed by pressure dressing. Crede maneuver was then performed with minimal blood clot or additional EBL. At this point the procedure was deemed complete. Sponge, lap, and needle counts were correct x3. The patient was subsequently transferred to the postanesthesia care unit in stable condition. Complications: none Post-operative Condition: stable Disposition: PACU Plan for aftercare: Admit to Center for routine postop and care.
--- NOTE | 2017-11-05 10:20 | SUR.PHASEI ---
REPORT CALLED TO DELL MARTIN IN CENTER. PT IN STABLE CONDITION, VSS. TRANSFERED PT TO CENTER AT THIS TIME.
[2017-11-05] MEDS: OXYCODONE/ACETAMINOPHEN 5/325 TABLET 2 TAB PO ×4 (11:43→23:52)
[2017-11-05] MEDS: HYDROCODONE/ACET 5/325 TABLET 2 TAB PO (13:29)
[2017-11-06] MEDS: OXYCODONE/ACETAMINOPHEN 5/325 TABLET 2 TAB PO ×5 (03:55→20:56)
[2017-11-06] MEDS: KETOROLAC 30 MG/ML VIAL IV (04:47)
--- NOTE | 2017-11-06 07:21 | PM.OBPN.1 ---
Subjective - OB Patient comments: pain well controlled and tolerating diet baby status: doing well and nursing well [place] feeding status: exclusively breast feeding Narrative: Castro catheter was removed last night. She has been up and ambulating in the room and is voiding without difficulty. Pain has been well controlled with Toradol and Percocet. Date Patient Seen: 11/06/17 Time Patient Seen: 07:22 Exam Vital Signs (past 8 hours): Oxygen Delivery Method Room Air Blood pressure 102/69, temperature 97.1?, pulse 81, respiratory rate 16, O2 sat 98% Narrative Exam Narrative: General: Sitting up in bed, alert and oriented x3, in no apparent distress. Lungs: Clear to auscultation bilaterally. No wheezes or crackles. Heart: Regular rate and rhythm with no murmurs, rubs, or gallops. Abdomen: Soft and appropriately tender. Bowel sounds heard throughout. Incision: Dressing clean, dry, and intact. Extremities: Warm and well-perfused with no clubbing or cyanosis. Trace edema noted. Objective Labs Result Diagrams: 11/05/17 06:30 Labs: Laboratory Results - last 24 hr 11/05/17 11/05/17 06:30 06:30 WBC 9.0 RBC 3.98 L Hgb 12.3 Hct 35.7 L MCV 89.7 MCH 30.9 MCHC 34.4 RDW 13.2 Plt Count 153 Neut % (Auto) 64.9 Lymph % (Auto) 25.8 [place] % (Auto) 8.0 Eos % (Auto) 0.5 L Baso % (Auto) 0.8 Neut # (Auto) 5800 Blood Type O Positive Antibody Screen Negative Assessment & Plan (1) delivery, delivered, current hospitalization: Problem details: Postoperative day 1 status post repeat section and doing well. -Continue routine postop and care and support. -Anticipate discharge home tomorrow. Status: Acute Current Visit: Yes Time Spent With Patient Total time spent is greater than 50% in coordination of care (as documented) at patient's floor/unit and/or counseling patient: less than 15 minutes
[2017-11-06 07:43] LABS: Add Manual Diff / Slide Review NO; Basophils Percent Auto 0.4 % (0-2); Eosinophils Percent Auto 0.5 % (2-4); Hematocrit 29.5 % (36-46); Hemoglobin 10.2 g/dL (12.0-16.0); Lymphocytes Percent Auto 16.9 % (25-40); Mean Corpuscular HGB Conc 34.7 % (30-36); Mean Corpuscular Hemoglobin 31.3 PG (26-34); Mean Corpuscular Volume 90.1 fL (80-100); Monocytes Percent Auto 9.2 % (3-14); Neutrophils Absolute Auto 6600 /uL (3000-5900); Platelet Count 127 X10^3/uL (150-400); Red Blood Cell Count 3.27 X10^6/uL (4.0-5.2); Red Cell Distribution Width 13.8 % (11.6-14.8); White Blood Cell Count 9.1 X10^3/uL (4.5-11.0)
[2017-11-06] MEDS: DOCUSATE 250 MG CAPSULE PO (09:13)
[2017-11-06] MEDS: SERTRALINE 50 MG TABLET PO (09:13)
[2017-11-07 00:56] VITALS: TEMP 36.5
[2017-11-07] MEDS: OXYCODONE/ACETAMINOPHEN 5/325 TABLET 2 TAB PO ×2 (00:56→05:14)
[2017-11-07] MEDS: LANOLIN OINT 7 GM 1 APPLIC TOP (00:56)
--- NOTE | 2017-11-07 08:19 | P.DS_ITS ---
Discharge Providers Date of admission: 11/05/17 06:05 Consults: 11/05/17 10:52 Consult to Relief Map Modeler Routine Comment: Discharge provider: Daisy Lynn MD Summary Date Patient Seen: 11/07/17 Time Patient Seen: 08:14 Hospital Course: After an uncomplicated repeat section, the patient was admitted to the recovery room and then the llanos in stable condition. Following some short-term pain control concerns, remedied with additional oral pain medication, she did well for the remainder of the hospitalization. Pain was well controlled with Toradol and Percocet as needed. Her Castro catheter was removed late in the evening of postoperative day number 0, and she met her due to void without any problem. On postoperative day 1, she was up and ambulating, tolerating a regular diet, and voiding freely. The baby was at the bedside and breast- feeding very well. On postoperative day 2, she reported she was passing flatus and was continuing to do well. She felt ready for discharge at that time. Peripartum Data Delivery Method: Section Laceration description: None Procedures: Repeat low-transverse section Lysis of adhesions complications: none Discharge Diagnosis (1) delivery, delivered, current hospitalization: Status: Acute Problem Details: Postoperative day 2 status post repeat delivery and doing well. Patient is meeting discharge criteria, and will discharged home today. Status at Discharge Cognitive/behavioral status at discharge: Appropriate and normal Functional status at discharge: independent ambulation Overall status at discharge: patient is progressing back to baseline Time Spent with Patient Total time spent providing and/or coordinating discharge services: Less than 30 minutes Specific discharge activities: Pelvic rest for 6 weeks. No heavy lifting or strenuous exercise for 6 weeks. No driving until pain free off narcotic pain medications (2-3 weeks). Objective Labs Result Diagrams: 11/06/17 07:34 Discharge Plan Discharge Plan Patient Disposition: Home Discharge comment: See discharge handout for instructions and precautions. Patient has postoperative medications already at home, including Motrin, Percocet, and Surfak. Discharge Med Rec/Prescriptions Follow up/Referrals: Daisy Lynn MD [Physician] - 11/15/17 3:20 pm (Appt already scheduled) Provider Discharge Instructions Diet: Diet as Tolerated Activity: Pelvic rest for 6 weeks. No heavy lifting or strenuous exercise for 6 weeks. No driving until pain free off narcotic pain medications. Cold/Heat Therapy: As desired for pain management Oxygen: None Other treatments: None Skin/Wound/Dressing Care Skin care: Keep the incision clean and dry Report to your healthcare provider any signs of infection, such as:: chills, fever, night sweats, increased pain and unusual drainage Dressing: Remove Steri-Strips in 1-2 weeks. Other wound treatment: Okay to shower. Do not scrub over the wound. Visit Report/Discharge Packet Print Language: Welsh Discharge Data Attending Provider: Daisy Lynn Admit Date/Time: 11/05/17 06:05
--- NOTE | 2017-11-07 08:23 | PM.OBPN.1 ---
Subjective - OB Interval history: The patient has been doing well. She reports she is passing flatus, tolerating regular diet, voiding freely, and up and ambulating without any lightheadedness or dizziness. The baby is at the bedside and continues to breastfeed well. She feels ready for discharge home today. Patient comments: no complaints, pain well controlled, tolerating diet and flatus present Provencal baby status: doing well and nursing well feeding status: exclusively breast feeding Narrative: As above Date Patient Seen: 11/07/17 Time Patient Seen: 08:14 Exam Vital Signs (past 8 hours): - 11/07/17 00:56 Temperature 97.7 F Blood pressure 103/64, pulse 80, temperature 98.6?, respiratory rate 17, oxygen saturation 98% Oxygen Delivery Method Room Air Narrative Exam Narrative: General: The patient is lying in bed, sleeping but arousable, in no apparent distress. Lungs: Clear to auscultation bilaterally with no wheezes or crackles. Heart: Regular rate and rhythm with no murmurs, rubs, or gallops. Abdomen: Soft and appropriately tender. Bowel sounds heard throughout. Incision: Steri-Strips clean, dry, and intact. No incision bruising, separation, or erythema. Minimal discharge is noted on the right side. Extremities: Warm and well perfused with no clubbing or cyanosis. Trace edema noted. Objective Labs Result Diagrams: 11/06/17 07:34 Assessment & Plan (1) delivery, delivered, current hospitalization: Problem details: Postoperative day 2 status post repeat delivery and doing well. Patient is meeting discharge criteria, and will discharged home today. Status: Acute Current Visit: Yes Plan day: 1 plan OB: routine postop care and discharge home Time Spent With Patient Total time spent is greater than 50% in coordination of care (as documented) at patient's floor/unit and/or counseling patient: less than 15 minutes
[2017-11-07 08:32] VITALS: BP 103/64; PULSE 80; RESP 17; TEMP 37
[2017-11-07] MEDS: DOCUSATE 250 MG CAPSULE PO (09:07)
[2017-11-07] MEDS: SERTRALINE 50 MG TABLET PO (09:07)
[2017-11-07] MEDS: OXYCODONE IR 5 MG TABLET 10 MG PO (10:19)
== END 2017-11-07 11:45 | disposition home or self-care (01) | DRG 766 ==
LOC: AC 06:09 → LABOR 06:39
PROVIDERS: Admitting Provider Obstetrics & Gynecology; Visit Provider Obstetrics & Gynecology
PROC: 10D00Z1 Extraction of Products of Conception, Low, Open Approach (ICD-10-PCS; CPT 59514; principal; 2017-11-05 07:45)
DX: O34.219 Maternal care for unspecified type scar from previous cesarean delivery (principal); Z3A.39 39 weeks gestation of pregnancy; Z37.0 Single live birth; O99.344 Other mental disorders complicating childbirth; F41.9 Anxiety disorder, unspecified; F32.9 Major depressive disorder, single episode, unspecified; O99.214 Obesity complicating childbirth; G89.29 Other chronic pain
CPT/HCPCS: 36415; 59050; 85025; 86850; 86900; 86901; J0690; J1885; J2405; J2590; J2704; J3010

== ENCOUNTER 2018-12-21 10:00 | Outpatient (RCR) | payer OTHER, SELFPAY ==
--- NOTE | 2018-03-10 13:50 | PT.OIE ---
Current Diagnoses Pelvic and perineal pain (03/09/18) Provider Visit Care Team Role Provider Type Daisy Lynn MD Attending Provider Non-Staff Primary Care Provider Specialty: OVEN STRIPPER Address: [address] [place] [address], [facility] Email: Physical Therapy Initial Evaluation PT-OP-A Visit Information Start: 03/09/18 14:02 Freq: Status: Active Protocol: Document 03/09/18 13:00 [facility] (Rec: 03/10/18 11:09 [facility] [email or web address]) Out-Patient Physical Therapy Visit Information Visit Information Visit Type Initial Evaluation Visit Note 27 year old female who is 4 months with her second baby. She had a c- section delivery. Her chief complaint is weakness, urinary incontinence, dysparunia Visit Start Time 13:00 Visit Stop Time 13:45 Total Visit Minutes 45 Visit Number 1 Evaluation Information Evaluation Date 03/09/18 PT-OP-B Current Condition Start: 03/09/18 14:02 Freq: Status: Active Protocol: Document 03/09/18 13:00 [facility] (Rec: 03/10/18 11:09 [facility] [email or web address]) Current Condition History of Current Condition Onset Date October 2017 Current Complaints LBP, SI pain L, urinary incontinence, weakness, dysparunia History of Current Condition Jackelyn is a 27 year old female who is 4 months after a c section delivery with her second child She was seen during her for complaints of left sided sciatica and SI pain. She is continuing to have these symptoms but is also noting urinary incontinence and pelvic pain with intercourse. Treatment Goals Patient/Caregiver Goals to improve strength, decrease pain, improve function and eliminate urinary incontinence Current Functional Impairments (Reported) Functional Limitations- Recreation/ limited with exercise due to Hobbies LBP and SI pain Functional Limitations- Other urinary incontinence and pelvic pain with intercourse PT-OP-F Manual Assessment Start: 03/09/18 14:02 Freq: Status: Active Protocol: Document 03/09/18 13:00 [facility] (Rec: 03/10/18 11:09 [facility] [email or web address]) Manual Assessments Soft Tissue Assessment Soft Tissue Mobility Assessment tightness in the lumbar paraspinals + kenyetta test B Joint Mobility Assessment Joint Mobility Assessment + tests for SI instability including + april test for the SI unlocking B and + ASLR test elevated left pelvis exaggerated lumbar lordosis PT-OP-I Pelvic Floor Start: 03/09/18 14:02 Freq: Status: Active Protocol: Document 03/09/18 13:00 [facility] (Rec: 03/10/18 11:09 [facility] [email or web address]) Pelvic Floor Assessment Urine Pelvic Floor Surgery No Urinary Symptoms Urge Sensation Falling Out Feeling/Heavy Leakage Cause Sneeze Urge Other Leakage Causes sit-stand can also cause leakage Leaks Per Day constant leakage Voiding Frequency 10 times plus Nocturia 3 times per night Urine Pad Type Maxi Pad Pelvic Clock Pelvic Clock 12-3 Atrophy Pelvic Clock 3-6 Guarding Hypertonic Tightness Pelvic Clock 6-9 Tightness Pelvic Clock 9-12 Atrophy Pelvic Clock Other muscle guarding and spasm of the left greater than right illiococcygeus musculature and tightness in the coccygeus SEMG (uV) Baseline 20 Recruitment Pattern Poor/Slow Relaxation Poor/Slow Holding Poor/Slow Stability of Hold Poor/Slow SEMG Stability of Rest Poor/Slow Contraction Ability Manual Muscle Testing Left 1 Manual Muscle Testing Right 2 Manual Muscle Testing Anterior 3 Manual Muscle Testing Posterior 3 Muscle Endurance (Seconds) 3 Comments Pelvic Floor Comments elevated tone on EMG biofeedback at 20 uv initially , this tone only went slightly down with trial of contract relax. I started Jackelyn with stretching exercises for her pelvic floor and lateral hip rotation stretngthening as a way to gently recruit the pelvic floor without causing increased guarding. PT-OP-K Range of Motion Start: 03/09/18 14:02 Freq: Status: Active Protocol: Document 03/09/18 13:00 [facility] (Rec: 03/10/18 11:09 [facility] [email or web address]) Lumbar Spine Range of Motion Lumbar Spine Active Testing Position Standing Flexion 50 Lateral Flexion Left 10 Lateral Flexion Right 15 ROM Limitations Soft Tissue Tightness Comments exaggerated lumbar lordosis in the lumbar spine limits the amout of lumbar spine flexion Hip Goniometric Range of Motion Hip ROM Limitations Hip ROM Limitations Soft Tissue Tightness Comments iliopsoas tightness left greater than right + kenyetta test B PT-OP-Q Treatments Start: 03/09/18 14:02 Freq: Status: Active Protocol: Document 03/09/18 14:03 [facility] (Rec: 03/09/18 14:08 [facility] [email or web address]) Therapeutic Exercises Supine Exercises 2 Supine Exercise Name roll outs with theraband Side bilateral Reps/Minutes work up to 30 reps Comments slight decrease in elevated resting tone with roll outs 1 Supine Exercise Name pelvic floor facilitation with contract relax Reps/Minutes 10 second hold x 10 reps Comments elevated resting tone at 23.7 uv, did not drop with contract relax Other Exercises 1 Other Exercise Name cat cow, alfredo pose, lumbar flexion stretch Manual Therapy Treatment Soft Tissue Mobilization 1 Body Location left QL and sacral region decompression Mobilization Type Myofascial Release Body Position Prone Joint Mobilizations 1 Joint MET for sacral counternutation Body Position Prone PT-OP-T Assessment and Plan Start: 03/09/18 14:02 Freq: Status: Active Protocol: Document 03/09/18 13:00 [facility] (Rec: 03/10/18 11:09 [facility] [email or web address]) Physical Therapy Assessment Rehab Potential Rehabilitation Potential Excellent Evaluation Complexity Number of Personal Factors/Comorbidities 0 Number of Body Systems Impaired 1-2 Clinical Presentation at Evaluation Stable Impairments Impairments Activity Tolerance Functional Mobility Pain Posture ROM Soft Tissue Mobility Strength Tone Other Impairments urinary incontinence, dysparunia Goals Four Impairment decreased hip flexibility + kenyetta test B, piriformis tightness Pediatric Dental Hygienist Goal (LTG) Jackelyn is educated on hip stretches to improve mobility of the hips allowing decreased tension in her lower back and helping to improve her pelvic floor relaxation Three Impairment LBP and left sided SI pain Care Home Goal (LTG) Jackelyn is educated on postural modification to decrease her lumbar lordosis and with stabilization and stretches she is able to decrease her complains of pain Two Impairment urinary incontinence Pediatric Dental Hygienist Goal (LTG) Improve strength of the pelvic floor for improved support of the bladder and decrease c/o urinary incontinence One Impairment pelvic floor guarding and pain with intercourse Short Term Goal (STG) Jackelyn is educated on relaxed awareness of her pelvic floor and she is able to relax her pelvic floor from her current reading of 20 uv to 2-4 uv to help decrease her pain STG Duration 5 weeks Assessment Summary Assessment Jackelyn returns to Physical Therapy today at 4 months s/p her delivery. Her chief complaints are left sided LBP and SI pain, urinary incontinence, and pain with intercourse. I did do a pelvic floor examination today and Jackelyn is very guarded on the left lateral wall of her levator ani. She has difficulty relaxing following a contraction and her strength on this side is very limited. She test 3/5 in the anterior and posterior wall and 2/5 on the right lateral wall. I did start her with EMG biofeedback today to begin working on relaxed awareness of the pelvic floor first prior to directly strengthening. She has a elevated resting tone at 20 uv initially. Being 4 months post her SI is still unstable and unlocks easily in single leg stance. She will ultimately benefit from slowly progressing core stabilization for the SI joint as well as for her pelvic organs. She tolerated todays treatment well and is a good candidate for PT.
--- NOTE | 2018-03-10 13:52 | PT.OPPOC ---
Current Diagnoses Pelvic and perineal pain (03/09/18) Provider Visit Care Team Role Provider Type Daisy Lynn MD Attending Provider Non-Staff Primary Care Provider Specialty: SENIOR MORTGAGE UNDERWRITER Address: [address] [place] [address], [id number] Email: Plan Of Care PT-OP-T Assessment and Plan Start: 03/09/18 14:02 Freq: Status: Active Protocol: Document 03/09/18 13:00 [facility] (Rec: 03/10/18 11:09 [facility] [email or web address]) Physical Therapy Assessment Rehab Potential Rehabilitation Potential Excellent Evaluation Complexity Number of Personal Factors/Comorbidities 0 Number of Body Systems Impaired 1-2 Clinical Presentation at Evaluation Stable Impairments Impairments Activity Tolerance Functional Mobility Pain Posture ROM Soft Tissue Mobility Strength Tone Other Impairments urinary incontinence, dysparunia Goals Four Impairment decreased hip flexibility + kenyetta test B, piriformis tightness Group Home Goal (LTG) Jackelyn is educated on hip stretches to improve mobility of the hips allowing decreased tension in her lower back and helping to improve her pelvic floor relaxation Three Impairment LBP and left sided SI pain Table Games Manager Goal (LTG) Jackelyn is educated on postural modification to decrease her lumbar lordosis and with stabilization and stretches she is able to decrease her complains of pain Two Impairment urinary incontinence Table Games Manager Goal (LTG) Improve strength of the pelvic floor for improved support of the bladder and decrease c/o urinary incontinence One Impairment pelvic floor guarding and pain with intercourse Short Term Goal (STG) Jackelyn is educated on relaxed awareness of her pelvic floor and she is able to relax her pelvic floor from her current reading of 20 uv to 2-4 uv to help decrease her pain STG Duration 5 weeks Assessment Summary Assessment Jackelyn returns to Physical Therapy today at 4 months s/p her delivery. Her chief compaints are left sided LBP and SI pain, urinary incontinence, and pain with intercourse. I did do a pelvic floor examination today and Jackelyn is very guarded on the left lateral wall of her levator ani. She has difficulty relaxing following a contraction and her strength on this side is very limited. She test 3/5 in the anterior and posterior wall and 2/5 on the right lateral wall. I did start her with EMG biofeedback today to begin working on relaxed awareness of the pelvic floor first prior to directly strengthening. She has a elevated resting tone at 20 uv initially. Being 4 months post her SI is still unstable and unlocks easily in single leg stance. She will ultimately benefit from slowly progressing core stabilization for the SI joint as well as for her pelvic organs. She tolerated todays treatment well and is a good candidate for PT. Plan of Care Dates Plan of Care Start Date 10/05/17 Plan of Care End Date 11/02/17 Please Sign and Return: I have reviewed this Plan of Care and certify that the skilled therapy services above are required to meet the patient?s needs. Physician Signature Date Printed Name and Credentials Clinical Instructor Signature Printed Name and Credentials
--- NOTE | 2018-03-16 14:51 | PT.OTN ---
Current Diagnoses Pelvic and perineal pain (03/16/18) Physical Therapy Treatment Note PT-OP-A Visit Information Start: 03/09/18 14:02 Freq: Status: Active Protocol: Document 03/09/18 13:00 [facility] (Rec: 03/10/18 11:09 [facility] [email or web address]) Out-Patient Physical Therapy Visit Information Visit Information Visit Type Initial Evaluation Visit Note 27 year old female who is 4 months with her second baby. She had a c- section delivery. Her chief complaint is weakness, urinary incontinence, dysparunia Visit Start Time 13:00 Visit Stop Time 13:45 Total Visit Minutes 45 Visit Number 1 Evaluation Information Evaluation Date 03/09/18 PT-OP-B Current Condition Start: 03/09/18 14:02 Freq: Status: Active Protocol: Document 03/09/18 13:00 [facility] (Rec: 03/10/18 11:09 [facility] [email or web address]) Current Condition History of Current Condition Onset Date October 2017 Current Complaints LBP, SI pain L, urinary incontinence, weakness, dysparunia History of Current Condition Jackelyn is a 27 year old female who is 4 months after a c section delivery with her second child . She was seen during her for complaints of left sided sciatica and SI pain. She is continuing to have these symptoms but is also noting urinary incontinence and pelvic pain with intercourse. Treatment Goals Patient/Caregiver Goals to improve strength, decrease pain, improve function and eliminate urinary incontinence Current Functional Impairments (Reported) Functional Limitations- Recreation/ limited with exercise due to Hobbies LBP and SI pain Functional Limitations- Other urinary incontinence and pelvic pain with intercourse PT-OP-C Subjective Start: 03/09/18 14:02 Freq: Status: Active Protocol: Document 03/16/18 14:41 [facility] (Rec: 03/16/18 14:47 [facility] [email or web address]) OP-PT Subjective Patient Comments Patient Comments Jackelyn reports she has been working on her exercises. Still feeling a lot of LBP and left sided pain. SHe also felt some right hip pain after a exercise class. She reports trying to run and experienced urinary leakage the whole time. She notes she has to do a one mile running test alson with 50 sit ups at 6 months post for a fitness test PT-OP-F Manual Assessment Start: 03/09/18 14:02 Freq: Status: Active Protocol: Document 03/09/18 13:00 [facility] (Rec: 03/10/18 11:09 [facility] [email or web address]) Manual Assessments Soft Tissue Assessment Soft Tissue Mobility Assessment tightness in the lumbar paraspinals + kenyetta test B Joint Mobility Assessment Joint Mobility Assessment + tests for SI instability including + april test for the SI unlocking B and + ASLR test elevated left pelvis exaggerated lumbar lordosis PT-OP-I Pelvic Floor Start: 03/09/18 14:02 Freq: Status: Active Protocol: Document 03/09/18 13:00 [facility] (Rec: 03/10/18 11:09 [facility] [email or web address]) Pelvic Floor Assessment Urine Pelvic Floor Surgery No Urinary Symptoms Urge Sensation Falling Out Feeling/Heavy Leakage Cause Sneeze Urge Other Leakage Causes sit-stand can also cause leakage Leaks Per Day constant leakage Voiding Frequency 10 times plus Nocturia 3 times per night Urine Pad Type Maxi Pad Pelvic Clock Pelvic Clock 12-3 Atrophy Pelvic Clock 3-6 Guarding Hypertonic Tightness Pelvic Clock 6-9 Tightness Pelvic Clock 9-12 Atrophy Pelvic Clock Other muscle guarding and spasm of the left greater than right illiococcygeus musculature and tightness in the coccygeus SEMG (uV) Baseline 20 Recruitment Pattern Poor/Slow Relaxation Poor/Slow Holding Poor/Slow Stability of Hold Poor/Slow SEMG Stability of Rest Poor/Slow Contraction Ability Manual Muscle Testing Left 1 Manual Muscle Testing Right 2 Manual Muscle Testing Anterior 3 Manual Muscle Testing Posterior 3 Muscle Endurance (Seconds) 3 Comments Pelvic Floor Comments elevated tone on EMG biofeedback at 20 uv initially , this tone only went slightly down with trial of contract relax. I started Jackelyn with stretching exercises for her pelvic floor and lateral hip rotation stretngthening as a way to gently recruit the pelvic floor without causing increased guarding. PT-OP-K Range of Motion Start: 03/09/18 14:02 Freq: Status: Active Protocol: Document 03/09/18 13:00 [facility] (Rec: 03/10/18 11:09 [facility] [email or web address]) Lumbar Spine Range of Motion Lumbar Spine Active Testing Position Standing Flexion 50 Lateral Flexion Left 10 Lateral Flexion Right 15 ROM Limitations Soft Tissue Tightness Comments exaggerated lumbar lordosis in the lumbar spine limits the amout of lumbar spine flexion Hip Goniometric Range of Motion Hip ROM Limitations Hip ROM Limitations Soft Tissue Tightness Comments iliopsoas tightness left greater than right + kenyetta test B PT-OP-Q Treatments Start: 03/09/18 14:02 Freq: Status: Active Protocol: Document 03/16/18 14:47 [facility] (Rec: 03/16/18 14:50 [facility] [email or web address]) Therapeutic Exercises Supine Exercises 3 Supine Exercise Name iliopoas stretch in kenyetta test position 2 Supine Exercise Name roll outs with theraband Side bilateral Reps/Minutes work up to 30 reps Comments slight decrease in elevated resting tone with roll outs 1 Supine Exercise Name pelvic floor facilitation with contract relax Reps/Minutes 10 second hold x 10 reps Comments elevated resting tone at 23.7 uv, did not drop with contract relax Other Exercises 2 Other Exercise Name quadraped TA facilitation and opp arm then opp leg lifts Reps/Minutes 10 reps each 1 Other Exercise Name cat cow, alfredo pose, lumbar flexion stretch Manual Therapy Treatment Soft Tissue Mobilization 2 Body Location scar tissue release over the c -section scar 1 Body Location left QL and sacral region decompression Mobilization Type Myofascial Release Body Position Prone PT-OP-T Assessment and Plan Start: 03/09/18 14:02 Freq: Status: Active Protocol: Document 03/16/18 14:41 [facility] (Rec: 03/16/18 14:47 [facility] [email or web address]) Physical Therapy Assessment Assessment Summary Assessment Still very tender over the c- section scar but tolerated scar tissue release. It is difficult for Jackelyn to feel her transverse abdominal muscle tighten and she tends to substitute with her upper abdominal wall. She is not safe at this time to be doing sit ups as her inner core is not strong enough to support her. I had her stop these and we worked on TA stabilization with marchjose, hands and knee TA stabilization, and small crunches with arms on legs while tightnening her pelvic floor Physical Therapy Plan Frequency and Duration Frequency of Treatment 1x/Week Therapeutic Interventions Therapeutic Interventions Home Exercise Program Manual Therapy Neuromuscular Re-education Self-Care/Home Management Soft Tissue Mobilization Therapeutic Exercises Next Visit Focus/Plan Next Note Type Treatment Note Next Visit Plan scar tissue release, inner core stabilization, pelvic floor strengthening
--- NOTE | 2018-03-23 13:30 | PT.OTN ---
Current Diagnoses Pelvic and perineal pain (03/23/18) Physical Therapy Treatment Note PT-OP-A Visit Information Start: 03/09/18 14:02 Freq: Status: Active Protocol: Document 03/23/18 13:21 [facility] (Rec: 03/23/18 13:30 [facility]ES [facility] [email or web address]) Out-Patient Physical Therapy Visit Information Visit Information Visit Type Treatment Note Visit Start Time 12:15 Visit Stop Time 13:00 Total Visit Minutes 45 Visit Number 3 Number of INNER TUBE INSERTER Visits 45 PT-OP-B Current Condition Start: 03/09/18 14:02 Freq: Status: Active Protocol: Document 03/09/18 13:00 [facility] (Rec: 03/10/18 11:09 [facility] [email or web address]) Current Condition History of Current Condition Onset Date October 2017 Current Complaints LBP, SI pain L, urinary incontinence, weakness, dysparunia History of Current Condition Jackelyn is a 27 year old female who is 4 months after a c section delivery with her second child . She was seen during her for complaints of left sided sciatica and SI pain. She is continuing to have these symptoms but is also noting urinary incontinence and pelvic pain with intercourse. Treatment Goals Patient/Caregiver Goals to improve strength, decrease pain, improve function and eliminate urinary incontinence Current Functional Impairments (Reported) Functional Limitations- Recreation/ limited with exercise due to Hobbies LBP and SI pain Functional Limitations- Other urinary incontinence and pelvic pain with intercourse PT-OP-C Subjective Start: 03/09/18 14:02 Freq: Status: Active Protocol: Document 03/23/18 13:21 [facility] (Rec: 03/23/18 13:30 [facility]ES [facility] [email or web address]) OP-PT Subjective Patient Comments Patient Comments Pt reports she has been trying to do the TRX classes at the gym. She did have a MRI today for her cervical spine PT-OP-F Manual Assessment Start: 03/09/18 14:02 Freq: Status: Active Protocol: Document 03/09/18 13:00 [facility] (Rec: 03/10/18 11:09 [facility] [email or web address]) Manual Assessments Soft Tissue Assessment Soft Tissue Mobility Assessment tightness in the lumbar paraspinals + kenyetta test B Joint Mobility Assessment Joint Mobility Assessment + tests for SI instability including April test for the SI unlocking B and + ASLR test elevated left pelvis exaggerated lumbar lordosis PT-OP-I Pelvic Floor Start: 03/09/18 14:02 Freq: Status: Active Protocol: Document 03/09/18 13:00 [facility]CLUDES THE [facility] (Rec: 03/10/18 11:09 [facility] INCLUDES THE [facility] [email or web address]) Pelvic Floor Assessment Urine Pelvic Floor Surgery No Urinary Symptoms Urge Sensation Falling Out Feeling/Heavy Leakage Cause Sneeze Urge Other Leakage Causes sit-stand can also cause leakage Leaks Per Day constant leakage Voiding Frequency 10 times plus Nocturia 3 times per night Urine Pad Type Maxi Pad Pelvic Clock Pelvic Clock 12-3 Atrophy Pelvic Clock 3-6 Guarding Hypertonic Tightness Pelvic Clock 6-9 Tightness Pelvic Clock 9-12 Atrophy Pelvic Clock Other muscle guarding and spasm of the left greater than right illiococcygeus musculature and tightness in the coccygeus SEMG (uV) Baseline 20 Recruitment Pattern Poor/Slow Relaxation Poor/Slow Holding Poor/Slow Stability of Hold Poor/Slow SEMG Stability of Rest Poor/Slow Contraction Ability Manual Muscle Testing Left 1 Manual Muscle Testing Right 2 Manual Muscle Testing Anterior 3 Manual Muscle Testing Posterior 3 Muscle Endurance (Seconds) 3 Comments Pelvic Floor Comments elevated tone on EMG biofeedback at 20 uv initially , this tone only went slightly down with trial of contract relax. I started Jackelyn with stretching exercises for her pelvic floor and lateral hip rotation stretngthening as a way to gently recruit the pelvic floor without causing increased guarding. PT-OP-K Range of Motion Start: 03/09/18 14:02 Freq: Status: Active Protocol: Document 03/09/18 13:00 [facility]CLUDES THE [facility] (Rec: 03/10/18 11:09 COUNT INCLUDES THE [facility] [email or web address]) Lumbar Spine Range of Motion Lumbar Spine Active Testing Position Standing Flexion 50 Lateral Flexion Left 10 Lateral Flexion Right 15 ROM Limitations Soft Tissue Tightness Comments exaggerated lumbar lordosis in the lumbar spine limits the amout of lumbar spine flexion Hip Goniometric Range of Motion Hip ROM Limitations Hip ROM Limitations Soft Tissue Tightness Comments iliopsoas tightness left greater than right + kenyetta test B PT-OP-Q Treatments Start: 03/09/18 14:02 Freq: Status: Active Protocol: Document 03/23/18 13:21 [facility]ES [facility] (Rec: 03/23/18 13:30 [facility]CLUDES THE [facility] [email or web address]) Therapeutic Exercises Supine Exercises 6 Supine Exercise Name hamstring and piriformis stretch 5 Supine Exercise Name TA with marches and up up down down Reps/Minutes x 10 Comments level 1b 4 Supine Exercise Name inner core stabilization with crunches 3 Supine Exercise Name iliopoas stretch in kenyetta test position Other Exercises 3 Other Exercise Name clam shells Reps/Minutes 3 x 10 reps 1 Other Exercise Name alfredo pose Manual Therapy Treatment Soft Tissue Mobilization 2 Body Location scar tissue release over the c -section scar 1 Body Location left QL and sacral region decompression Mobilization Type Myofascial Release Body Position Prone Joint Mobilizations 1 Joint MET for sacral counternutation Body Position Prone PT-OP-T Assessment and Plan Start: 03/09/18 14:02 Freq: Status: Active Protocol: Document 03/23/18 13:21 [facility] (Rec: 03/23/18 13:30 [facility] [email or web address]) Physical Therapy Assessment Assessment Summary Assessment still unstable with joints post . Feels her back moving with level 1 b. Advised to work on TA in quadraped first and then move to supine Physical Therapy Plan Frequency and Duration Frequency of Treatment 1x/Week Duration of Treatment 8 Plan of Care Start Date 03/09/18 Plan of Care End Date 05/04/18 Therapeutic Interventions Therapeutic Interventions Home Exercise Program Manual Therapy Neuromuscular Re-education Self-Care/Home Management Soft Tissue Mobilization Therapeutic Exercises Next Visit Focus/Plan Next Note Type Treatment Note Next Visit Plan begin with pelvic floor stabilization next visit.
--- NOTE | 2018-03-30 14:26 | PT.OTN ---
Current Diagnoses Pelvic and perineal pain (03/30/18) Physical Therapy Treatment Note PT-OP-A Visit Information Start: 03/09/18 14:02 Freq: Status: Active Protocol: Document 03/30/18 14:15 [facility] (Rec: 03/30/18 14:24 [facility] [email or web address]) Out-Patient Physical Therapy Visit Information Visit Information Visit Type Treatment Note Visit Start Time 12:15 Visit Stop Time 13:00 Total Visit Minutes 45 Visit Number 4 Number of DIESEL POWER SHOVEL OPERATOR Visits 0 PT-OP-B Current Condition Start: 03/09/18 14:02 Freq: Status: Active Protocol: Document 03/09/18 13:00 [facility] (Rec: 03/10/18 11:09 [facility] [email or web address]) Current Condition History of Current Condition Onset Date October 2017 Current Complaints LBP, SI pain L, urinary incontinence, weakness, dysparunia History of Current Condition Jackelyn is a 27 year old female who is 4 months after a c section delivery with her second child . She was seen during her for complaints of left sided sciatica and SI pain. She is continuing to have these symptoms but is also noting urinary incontinence and pelvic pain with intercourse. Treatment Goals Patient/Caregiver Goals to improve strength, decrease pain, improve function and eliminate urinary incontinence Current Functional Impairments (Reported) Functional Limitations- Recreation/ limited with exercise due to Hobbies LBP and SI pain Functional Limitations- Other urinary incontinence and pelvic pain with intercourse PT-OP-C Subjective Start: 03/09/18 14:02 Freq: Status: Active Protocol: Document 03/30/18 14:24 [facility] (Rec: 03/30/18 14:26 [facility] [email or web address]) OP-PT Subjective Patient Comments Patient Comments Jackelyn reports she irritated her right SI in exercise class the other day. She did do a few cat cow exercises that helped it but she is still feeling that it is tight on the right PT-OP-F Manual Assessment Start: 03/09/18 14:02 Freq: Status: Active Protocol: Document 03/09/18 13:00 [facility] (Rec: 03/10/18 11:09 [facility] [email or web address]) Manual Assessments Soft Tissue Assessment Soft Tissue Mobility Assessment tightness in the lumbar paraspinals + kenyetta test B Joint Mobility Assessment Joint Mobility Assessment + tests for SI instability including + april test for the SI unlocking B and + ASLR test elevated left pelvis exaggerated lumbar lordosis PT-OP-I Pelvic Floor Start: 03/09/18 14:02 Freq: Status: Active Protocol: Document 03/09/18 13:00 [facility] (Rec: 03/10/18 11:09 [facility] [email or web address]) Pelvic Floor Assessment Urine Pelvic Floor Surgery No Urinary Symptoms Urge Sensation Falling Out Feeling/Heavy Leakage Cause Sneeze Urge Other Leakage Causes sit-stand can also cause leakage Leaks Per Day constant leakage Voiding Frequency 10 times plus Nocturia 3 times per night Urine Pad Type Maxi Pad Pelvic Clock Pelvic Clock 12-3 Atrophy Pelvic Clock 3-6 Guarding Hypertonic Tightness Pelvic Clock 6-9 Tightness Pelvic Clock 9-12 Atrophy Pelvic Clock Other muscle guarding and spasm of the left greater than right illiococcygeus musculature and tightness in the coccygeus SEMG (uV) Baseline 20 Recruitment Pattern Poor/Slow Relaxation Poor/Slow Holding Poor/Slow Stability of Hold Poor/Slow SEMG Stability of Rest Poor/Slow Contraction Ability Manual Muscle Testing Left 1 Manual Muscle Testing Right 2 Manual Muscle Testing Anterior 3 Manual Muscle Testing Posterior 3 Muscle Endurance (Seconds) 3 Comments Pelvic Floor Comments elevated tone on EMG biofeedback at 20 uv initially , this tone only went slightly down with trial of contract relax. I started Jackelyn with stretching exercises for her pelvic floor and lateral hip rotation stretngthening as a way to gently recruit the pelvic floor without causing increased guarding. PT-OP-K Range of Motion Start: 03/09/18 14:02 Freq: Status: Active Protocol: Document 03/09/18 13:00 [facility] (Rec: 03/10/18 11:09 [facility] [email or web address]) Lumbar Spine Range of Motion Lumbar Spine Active Testing Position Standing Flexion 50 Lateral Flexion Left 10 Lateral Flexion Right 15 ROM Limitations Soft Tissue Tightness Comments exaggerated lumbar lordosis in the lumbar spine limits the amout of lumbar spine flexion Hip Goniometric Range of Motion Hip ROM Limitations Hip ROM Limitations Soft Tissue Tightness Comments iliopsoas tightness left greater than right + kenyetta test B PT-OP-Q Treatments Start: 03/09/18 14:02 Freq: Status: Active Protocol: Document 03/30/18 14:15 [facility] (Rec: 03/30/18 14:24 [facility] [email or web address]) Therapeutic Exercises Supine Exercises 8 Supine Exercise Name templates for eccentric control and coordination 7 Supine Exercise Name quick flicks Reps/Minutes 10 reps 6 Supine Exercise Name hamstring and piriformis stretch 3 Supine Exercise Name iliopoas stretch in kenyetta test position 1 Supine Exercise Name pelvic floor facilitation with contract relax Reps/Minutes 10 second hold x 10 reps Comments elevated resting tone at 23.7 uv, did not drop with contract relax Manual Therapy Treatment Soft Tissue Mobilization 2 Body Location scar tissue release over the c -section scar Joint Mobilizations 2 Joint MET for right anterior rotation PT-OP-T Assessment and Plan Start: 03/09/18 14:02 Freq: Status: Active Protocol: Document 03/30/18 14:15 [facility] (Rec: 03/30/18 14:24 [facility] [email or web address]) Physical Therapy Assessment Assessment Summary Assessment Decreased resting tone of the pelvic floor musculature today on EMG biofeedback. Her average was around a 10 but she dropped as low as 6 uv today. Average was 34 uv Physical Therapy Plan Frequency and Duration Frequency of Treatment 1x/Week Duration of Treatment 8 Plan of Care Start Date 03/09/18 Plan of Care End Date 05/04/18 Therapeutic Interventions Therapeutic Interventions Home Exercise Program Manual Therapy Neuromuscular Re-education Self-Care/Home Management Soft Tissue Mobilization Therapeutic Exercises Next Visit Focus/Plan Next Note Type Treatment Note Next Visit Plan continue to work on stabilization of the lower abdominal muscles and pelvic floor as well as scar tissue mobilizations
--- NOTE | 2018-04-06 14:19 | PT.OTN ---
Current Diagnoses Pelvic and perineal pain (04/06/18) Physical Therapy Treatment Note PT-OP-A Visit Information Start: 03/09/18 14:02 Freq: Status: Active Protocol: Document 04/06/18 14:07 [facility] (Rec: 04/06/18 14:19 [facility] [email or web address]) Out-Patient Physical Therapy Visit Information Visit Information Visit Type Treatment Note Visit Start Time 12:25 Visit Stop Time 13:00 Total Visit Minutes 35 Visit Number 5 Number of PRODUCTION OPERATIONS MANAGER Visits 0 Evaluation Information Evaluation Date 03/09/18 PT-OP-B Current Condition Start: 03/09/18 14:02 Freq: Status: Active Protocol: Document 03/09/18 13:00 [facility] (Rec: 03/10/18 11:09 [facility] [email or web address]) Current Condition History of Current Condition Onset Date October 2017 Current Complaints LBP, SI pain L, urinary incontinence, weakness, dysparunia History of Current Condition Jackelyn is a 27 year old female who is 4 months after a c section delivery with her second child . She was seen during her for complaints of left sided sciatica and SI pain. She is continuing to have these symptoms but is also noting urinary incontinence and pelvic pain with intercourse. Treatment Goals Patient/Caregiver Goals to improve strength, decrease pain, improve function and eliminate urinary incontinence Current Functional Impairments (Reported) Functional Limitations- Recreation/ limited with exercise due to Hobbies LBP and SI pain Functional Limitations- Other urinary incontinence and pelvic pain with intercourse PT-OP-C Subjective Start: 03/09/18 14:02 Freq: Status: Active Protocol: Document 04/06/18 14:07 [facility] (Rec: 04/06/18 14:19 [facility] [email or web address]) OP-PT Subjective Patient Comments Patient Comments Jackelyn reports she had a audible pop in her sacrum while doing yoga and this gave her a good amount of relief. She is working hard on her exercise program. Still c/o LBP and tightness from the abdominal scar PT-OP-F Manual Assessment Start: 03/09/18 14:02 Freq: Status: Active Protocol: Document 03/09/18 13:00 [facility] (Rec: 03/10/18 11:09 [facility] [email or web address]) Manual Assessments Soft Tissue Assessment Soft Tissue Mobility Assessment tightness in the lumbar paraspinals + kenyetta test B Joint Mobility Assessment Joint Mobility Assessment + tests for SI instability including + april test for the SI unlocking B and + ASLR test elevated left pelvis exaggerated lumbar lordosis PT-OP-I Pelvic Floor Start: 03/09/18 14:02 Freq: Status: Active Protocol: Document 03/09/18 13:00 [facility] (Rec: 03/10/18 11:09 [facility] [email or web address]) Pelvic Floor Assessment Urine Pelvic Floor Surgery No Urinary Symptoms Urge Sensation Falling Out Feeling/Heavy Leakage Cause Sneeze Urge Other Leakage Causes sit-stand can also cause leakage Leaks Per Day constant leakage Voiding Frequency 10 times plus Nocturia 3 times per night Urine Pad Type Maxi Pad Pelvic Clock Pelvic Clock 12-3 Atrophy Pelvic Clock 3-6 Guarding Hypertonic Tightness Pelvic Clock 6-9 Tightness Pelvic Clock 9-12 Atrophy Pelvic Clock Other muscle guarding and spasm of the left greater than right illiococcygeus musculature and tightness in the coccygeus SEMG (uV) Baseline 20 Recruitment Pattern Poor/Slow Relaxation Poor/Slow Holding Poor/Slow Stability of Hold Poor/Slow SEMG Stability of Rest Poor/Slow Contraction Ability Manual Muscle Testing Left 1 Manual Muscle Testing Right 2 Manual Muscle Testing Anterior 3 Manual Muscle Testing Posterior 3 Muscle Endurance (Seconds) 3 Comments Pelvic Floor Comments elevated tone on EMG biofeedback at 20 uv initially , this tone only went slightly down with trial of contract relax. I started Jackelyn with stretching exercises for her pelvic floor and lateral hip rotation stretngthening as a way to gently recruit the pelvic floor without causing increased guarding. PT-OP-K Range of Motion Start: 03/09/18 14:02 Freq: Status: Active Protocol: Document 03/09/18 13:00 [facility] (Rec: 03/10/18 11:09 [facility] [email or web address]) Lumbar Spine Range of Motion Lumbar Spine Active Testing Position Standing Flexion 50 Lateral Flexion Left 10 Lateral Flexion Right 15 ROM Limitations Soft Tissue Tightness Comments exaggerated lumbar lordosis in the lumbar spine limits the amout of lumbar spine flexion Hip Goniometric Range of Motion Hip ROM Limitations Hip ROM Limitations Soft Tissue Tightness Comments iliopsoas tightness left greater than right + kenyetta test B PT-OP-Q Treatments Start: 03/09/18 14:02 Freq: Status: Active Protocol: Document 04/06/18 14:07 [facility] (Rec: 04/06/18 14:19 [facility] [email or web address]) Manual Therapy Treatment Soft Tissue Mobilization 2 Body Location scar tissue release over the c -section scar 1 Body Location left QL and sacral region decompression Mobilization Type Myofascial Release Body Position Prone PT-OP-T Assessment and Plan Start: 03/09/18 14:02 Freq: Status: Active Protocol: Document 04/06/18 14:07 [facility] (Rec: 04/06/18 14:19 [facility] [email or web address]) Physical Therapy Assessment Assessment Summary Assessment worked on scar release and Low back release today. Right greater than left scar myofascial tightness Physical Therapy Plan Frequency and Duration Frequency of Treatment 1x/Week Duration of Treatment 8 Plan of Care Start Date 03/09/18 Plan of Care End Date 05/04/18 Therapeutic Interventions Therapeutic Interventions Home Exercise Program Manual Therapy Neuromuscular Re-education Self-Care/Home Management Soft Tissue Mobilization Therapeutic Exercises Next Visit Focus/Plan Next Note Type Treatment Note Next Visit Plan work on lower abdominal facilitation and pelvic floor work again
--- NOTE | 2018-05-04 14:08 | PT.OTN ---
Current Diagnoses Pelvic and perineal pain (05/04/18) Physical Therapy Treatment Note PT-OP-A Visit Information Start: 03/09/18 14:02 Freq: Status: Active Protocol: Document 05/04/18 14:02 [facility] (Rec: 05/04/18 14:08 [facility] [email or web address]) Out-Patient Physical Therapy Visit Information Visit Information Visit Type Treatment Note Visit Start Time 13:00 Visit Stop Time 13:45 Total Visit Minutes 45 Visit Number 6 Number of INTERNAL COMBUSTION ENGINE INSPECTOR Visits 0 Evaluation Information Evaluation Date 03/09/18 PT-OP-B Current Condition Start: 03/09/18 14:02 Freq: Status: Active Protocol: Document 03/09/18 13:00 [facility] (Rec: 03/10/18 11:09 [facility] [email or web address]) Current Condition History of Current Condition Onset Date October 2017 Current Complaints LBP, SI pain L, urinary incontinence, weakness, dysparunia History of Current Condition Jackelyn is a 27 year old female who is 4 months after a c section delivery with her second child . She was seen during her for complaints of left sided sciatica and SI pain. She is continuing to have these symptoms but is also noting urinary incontinence and pelvic pain with intercourse. Treatment Goals Patient/Caregiver Goals to improve strength, decrease pain, improve function and eliminate urinary incontinence Current Functional Impairments (Reported) Functional Limitations- Recreation/ limited with exercise due to Hobbies LBP and SI pain Functional Limitations- Other urinary incontinence and pelvic pain with intercourse PT-OP-C Subjective Start: 03/09/18 14:02 Freq: Status: Active Protocol: Document 05/04/18 14:02 [facility] (Rec: 05/04/18 14:08 [facility] [email or web address]) OP-PT Subjective Patient Comments Patient Comments Started her cycle again since having her baby, had a couple complete loss of control both at home and in exercise class, also feels that she has had difficulty initiating the stream of urine PT-OP-F Manual Assessment Start: 03/09/18 14:02 Freq: Status: Active Protocol: Document 03/09/18 13:00 [facility] (Rec: 03/10/18 11:09 [facility] [email or web address]) Manual Assessments Soft Tissue Assessment Soft Tissue Mobility Assessment tightness in the lumbar paraspinals + kenyetta test B Joint Mobility Assessment Joint Mobility Assessment + tests for SI instability including + april test for the SI unlocking B and + ASLR test elevated left pelvis exaggerated lumbar lordosis PT-OP-I Pelvic Floor Start: 03/09/18 14:02 Freq: Status: Active Protocol: Document 03/09/18 13:00 [facility] (Rec: 03/10/18 11:09 [facility] [email or web address]) Pelvic Floor Assessment Urine Pelvic Floor Surgery No Urinary Symptoms Urge Sensation Falling Out Feeling/Heavy Leakage Cause Sneeze Urge Other Leakage Causes sit-stand can also cause leakage Leaks Per Day constant leakage Voiding Frequency 10 times plus Nocturia 3 times per night Urine Pad Type Maxi Pad Pelvic Clock Pelvic Clock 12-3 Atrophy Pelvic Clock 3-6 Guarding Hypertonic Tightness Pelvic Clock 6-9 Tightness Pelvic Clock 9-12 Atrophy Pelvic Clock Other muscle guarding and spasm of the left greater than right illiococcygeus musculature and tightness in the coccygeus SEMG (uV) Baseline 20 Recruitment Pattern Poor/Slow Relaxation Poor/Slow Holding Poor/Slow Stability of Hold Poor/Slow SEMG Stability of Rest Poor/Slow Contraction Ability Manual Muscle Testing Left 1 Manual Muscle Testing Right 2 Manual Muscle Testing Anterior 3 Manual Muscle Testing Posterior 3 Muscle Endurance (Seconds) 3 Comments Pelvic Floor Comments elevated tone on EMG biofeedback at 20 uv initially , this tone only went slightly down with trial of contract relax. I started Jackelyn with stretching exercises for her pelvic floor and lateral hip rotation stretngthening as a way to gently recruit the pelvic floor without causing increased guarding. PT-OP-K Range of Motion Start: 03/09/18 14:02 Freq: Status: Active Protocol: Document 03/09/18 13:00 [facility] (Rec: 03/10/18 11:09 [facility] [email or web address]) Lumbar Spine Range of Motion Lumbar Spine Active Testing Position Standing Flexion 50 Lateral Flexion Left 10 Lateral Flexion Right 15 ROM Limitations Soft Tissue Tightness Comments exaggerated lumbar lordosis in the lumbar spine limits the amout of lumbar spine flexion Hip Goniometric Range of Motion Hip ROM Limitations Hip ROM Limitations Soft Tissue Tightness Comments iliopsoas tightness left greater than right + kenyetta test B PT-OP-Q Treatments Start: 03/09/18 14:02 Freq: Status: Active Protocol: Document 05/04/18 14:02 [facility] (Rec: 05/04/18 14:08 [facility] [email or web address]) Manual Therapy Treatment Soft Tissue Mobilization 4 Body Location ILU self massage for the colon 3 Body Location internal pelvic floor release on the left side Comments illiococcygeus, and transverse perineum musculatre 2 Body Location scar tissue release over the c -section scar Manual Techniques 1 Type manual illiopsoas stretch in kenyetta test position PT-OP-T Assessment and Plan Start: 03/09/18 14:02 Freq: Status: Active Protocol: Document 05/04/18 14:02 [facility] (Rec: 05/04/18 14:08 [facility] [email or web address]) Physical Therapy Assessment Assessment Summary Assessment gave Jackelyn a dilator for home size large for stretching , also discussed constipation as this can aggravate the bladder, needs to work on right side iliopsoas stretching Physical Therapy Plan Frequency and Duration Frequency of Treatment 1x/Week Duration of Treatment 8 Plan of Care Start Date 03/09/18 Plan of Care End Date 05/11/18 Therapeutic Interventions Therapeutic Interventions Home Exercise Program Manual Therapy Neuromuscular Re-education Self-Care/Home Management Soft Tissue Mobilization Therapeutic Exercises Next Visit Focus/Plan Next Note Type Treatment Note Next Visit Plan begin with iliopsoas stretching next visit
--- NOTE | 2018-05-11 14:04 | PT.OTN ---
Current Diagnoses Pelvic and perineal pain (05/11/18) Physical Therapy Treatment Note PT-OP-A Visit Information Start: 03/09/18 14:02 Freq: Status: Active Protocol: Document 05/11/18 13:57 [facility] (Rec: 05/11/18 14:04 [facility] [email or web address]) Out-Patient Physical Therapy Visit Information Visit Information Visit Type Progress Note Visit Start Time 13:00 Visit Stop Time 13:45 Total Visit Minutes 45 Visit Number 7 Number of METAPHYSICIST Visits 0 PT-OP-B Current Condition Start: 03/09/18 14:02 Freq: Status: Active Protocol: Document 03/09/18 13:00 [facility] (Rec: 03/10/18 11:09 [facility] [email or web address]) Current Condition History of Current Condition Onset Date October 2017 Current Complaints LBP, SI pain L, urinary incontinence, weakness, dysparunia History of Current Condition Jackelyn is a 27 year old female who is 4 months after a c section delivery with her second child . She was seen during her for complaints of left sided sciatica and SI pain. She is continuing to have these symptoms but is also noting urinary incontinence and pelvic pain with intercourse. Treatment Goals Patient/Caregiver Goals to improve strength, decrease pain, improve function and eliminate urinary incontinence Current Functional Impairments (Reported) Functional Limitations- Recreation/ limited with exercise due to Hobbies LBP and SI pain Functional Limitations- Other urinary incontinence and pelvic pain with intercourse PT-OP-C Subjective Start: 03/09/18 14:02 Freq: Status: Active Protocol: Document 05/11/18 13:57 [facility] (Rec: 05/11/18 14:04 [facility] [email or web address]) OP-PT Subjective Patient Comments Patient Comments reports she has tried using the dilator, feels a little uncomfortable with it. Did try intercourse and notes this was better PT-OP-F Manual Assessment Start: 03/09/18 14:02 Freq: Status: Active Protocol: Document 03/09/18 13:00 [facility] (Rec: 03/10/18 11:09 [facility] [email or web address]) Manual Assessments Soft Tissue Assessment Soft Tissue Mobility Assessment tightness in the lumbar paraspinals + kenyetta test B Joint Mobility Assessment Joint Mobility Assessment + tests for SI instability including + april test for the SI unlocking B and + ASLR test elevated left pelvis exaggerated lumbar lordosis PT-OP-I Pelvic Floor Start: 03/09/18 14:02 Freq: Status: Active Protocol: Document 03/09/18 13:00 [facility] (Rec: 03/10/18 11:09 [facility] [email or web address]) Pelvic Floor Assessment Urine Pelvic Floor Surgery No Urinary Symptoms Urge Sensation Falling Out Feeling/Heavy Leakage Cause Sneeze Urge Other Leakage Causes sit-stand can also cause leakage Leaks Per Day constant leakage Voiding Frequency 10 times plus Nocturia 3 times per night Urine Pad Type Maxi Pad Pelvic Clock Pelvic Clock 12-3 Atrophy Pelvic Clock 3-6 Guarding Hypertonic Tightness Pelvic Clock 6-9 Tightness Pelvic Clock 9-12 Atrophy Pelvic Clock Other muscle guarding and spasm of the left greater than right illiococcygeus musculature and tightness in the coccygeus SEMG (uV) Baseline 20 Recruitment Pattern Poor/Slow Relaxation Poor/Slow Holding Poor/Slow Stability of Hold Poor/Slow SEMG Stability of Rest Poor/Slow Contraction Ability Manual Muscle Testing Left 1 Manual Muscle Testing Right 2 Manual Muscle Testing Anterior 3 Manual Muscle Testing Posterior 3 Muscle Endurance (Seconds) 3 Comments Pelvic Floor Comments elevated tone on EMG biofeedback at 20 uv initially , this tone only went slightly down with trial of contract relax. I started Jackelyn with stretching exercises for her pelvic floor and lateral hip rotation stretngthening as a way to gently recruit the pelvic floor without causing increased guarding. PT-OP-K Range of Motion Start: 03/09/18 14:02 Freq: Status: Active Protocol: Document 03/09/18 13:00 [facility] (Rec: 03/10/18 11:09 [facility] [email or web address]) Lumbar Spine Range of Motion Lumbar Spine Active Testing Position Standing Flexion 50 Lateral Flexion Left 10 Lateral Flexion Right 15 ROM Limitations Soft Tissue Tightness Comments exaggerated lumbar lordosis in the lumbar spine limits the amout of lumbar spine flexion Hip Goniometric Range of Motion Hip ROM Limitations Hip ROM Limitations Soft Tissue Tightness Comments iliopsoas tightness left greater than right + kenyetta test B PT-OP-Q Treatments Start: 03/09/18 14:02 Freq: Status: Active Protocol: Document 05/11/18 13:57 [facility] (Rec: 05/11/18 14:04 [facility] [email or web address]) Therapeutic Exercises Supine Exercises 9 Supine Exercise Name roll outs with theraband Reps/Minutes 3 x 10 3 Supine Exercise Name iliopoas stretch in kenyetta test position 1 Supine Exercise Name pelvic floor facilitation with contract relax Reps/Minutes 10 second hold x 10 reps Comments elevated resting tone at 23.7 uv, did not drop with contract relax Sidelying Exercises 1 Sidelying Exercise Name sidelying clam shells with theraband Reps/Minutes 2 x 15 Manual Therapy Treatment Soft Tissue Mobilization 4 Body Location ILU self massage for the colon 2 Body Location scar tissue release over the c -section scar Manual Techniques 1 Type manual illiopsoas stretch in kenyetta test position PT-OP-T Assessment and Plan Start: 03/09/18 14:02 Freq: Status: Active Protocol: Document 05/11/18 13:57 [facility] (Rec: 05/11/18 14:04 [facility] [email or web address]) Physical Therapy Assessment Goals Four Impairment decreased hip flexibility + kenyetta test B, piriformis tightness Short Term Goal (STG) Improve lumbar flexion with both manual techniques and a home flexibility program. STG Duration GOAL MET Food Service Worker Goal (LTG) Jackelyn is educated on hip stretches to improve mobility of the hips allowing decreased tension in her lower back and helping to improve her pelvic floor relaxation LTG Duration PROGRESSING TOWARDS GOAL Three Impairment LBP and left sided SI pain Short Term Goal (STG) Jackelyn is educated on lumbar flexion ROM and iliopsoas flexibility exercises to decrease her exaggerated lumbar lordosis and improve posture reducing pain STG Duration GOAL MET Food Service Worker Goal (LTG) Jackelyn is educated on postural modification to decrease her lumbar lordosis and with stabilization and stretches she is able to decrease her complains of pain LTG Duration PROGRESSING TOWARD GOAL Two Impairment urinary incontinence Short Term Goal (STG) PROGRESSING TOWARDS GOAL Care Home Goal (LTG) Improve strength of the pelvic floor for improved support of the bladder and decrease c/o urinary incontinence One Impairment pelvic floor guarding and pain with intercourse Short Term Goal (STG) Jackelyn is educated on relaxed awareness of her pelvic floor and she is able to relax her pelvic floor from her current reading of 20 uv to 2-4 uv to help decrease her pain Care Home Goal (LTG) GOOD DECREASE IN SX Progress Towards Goals Progress Towards Goals Progressing Toward Goals Assessment Summary Assessment Jackelyn is slowly progressing with decreasing pelvic and perineal pain. She was able to hav intercourse with less pain and feels encouraged with her progress. Resting tone on EMG biofeedback is still elevated but there were times where it dropped down to 4 uv, advised pt to continue with pelvic floor stretches, dilator use, relaxed awareness of pelvic floor and iliopsoas stretching . Physical Therapy Plan Frequency and Duration Frequency of Treatment 1x/Week Duration of Treatment 8 Plan of Care Start Date 05/11/18 Plan of Care End Date 07/11/18
--- NOTE | 2018-05-11 14:05 | PT.OPPOC ---
Current Diagnoses Pelvic and perineal pain (05/11/18) Provider Visit Care Team Role Provider Type Daisy Lynn MD Attending Provider Non-Staff Primary Care Provider Specialty: BOATWRIGHT Address: [address] [place] [address], [id number] Email: Plan Of Care PT-OP-T Assessment and Plan Start: 03/09/18 14:02 Freq: Status: Active Protocol: Document 05/11/18 13:57 [facility] (Rec: 05/11/18 14:04 [facility] [email or web address]) Physical Therapy Assessment Goals Four Impairment decreased hip flexibility + kenyetta test B, piriformis tightness Short Term Goal (STG) Improve lumbar flexion with both manual techniques and a home flexibility program. STG Duration GOAL MET Prison Goal (LTG) Jackelyn is educated on hip stretches to improve mobility of the hips allowing decreased tension in her lower back and helping to improve her pelvic floor relaxation LTG Duration PROGRESSING TOWARDS GOAL Three Impairment LBP and left sided SI pain Short Term Goal (STG) Jackelyn is educated on lumbar flexion ROM and iliopsoas flexibility exercises to decrease her exaggerated lumbar lordosis and improve posture reducing pain STG Duration GOAL MET Prison Goal (LTG) Jackelyn is educated on postural modification to decrease her lumbar lordosis and with stabilization and stretches she is able to decrease her complains of pain LTG Duration PROGRESSING TOWARD GOAL Two Impairment urinary incontinence Short Term Goal (STG) PROGRESSING TOWARDS GOAL Prison Goal (LTG) Improve strength of the pelvic floor for improved support of the bladder and decrease c/o urinary incontinence One Impairment pelvic floor guarding and pain with intercourse Short Term Goal (STG) Jackelyn is educated on relaxed awareness of her pelvic floor and she is able to relax her pelvic floor from her current reading of 20 uv to 2-4 uv to help decrease her pain Screen Making Technician Goal (LTG) GOOD DECREASE IN SX Progress Towards Goals Progress Towards Goals Progressing Toward Goals Assessment Summary Assessment Jackelyn is slowly progressing with decreasing pelvic and perineal pain. She was able to hav intercourse with less pain and feels encouraged with her progress. Resting tone on EMG biofeedback is still elevated but there were times where it dropped down to 4 uv, advised pt to continue with pelvic floor stretches, dilator use, relaxed awareness of pelvic floor and iliopsoas stretching . Physical Therapy Plan Frequency and Duration Frequency of Treatment 1x/Week Duration of Treatment 8 Plan of Care Start Date 05/11/18 Plan of Care End Date 07/11/18 Plan of Care Dates Plan of Care Start Date 05/11/18 Plan of Care End Date 07/11/18 Please Sign and Return: I have reviewed this Plan of Care and certify that the skilled therapy services above are required to meet the patient?s needs. Physician Signature Date Printed Name and Credentials Clinical Instructor Signature Printed Name and Credentials
--- NOTE | 2018-06-08 13:57 | PT.OTN ---
Current Diagnoses Pelvic and perineal pain (06/08/18) Physical Therapy Treatment Note PT-OP-A Visit Information Start: 03/09/18 14:02 Freq: Status: Active Protocol: Document 06/08/18 13:09 [facility] (Rec: 06/08/18 13:12 [facility] [id number]) Out-Patient Physical Therapy Visit Information Visit Information Visit Type Treatment Note Visit Start Time 13:05 Visit Stop Time 13:55 Total Visit Minutes 45 Visit Number 8 Number of COLLEGE ATHLETE Visits 0 Evaluation Information Evaluation Date 03/09/18 PT-OP-B Current Condition Start: 03/09/18 14:02 Freq: Status: Active Protocol: Document 03/09/18 13:00 [facility] (Rec: 03/10/18 11:09 [facility] [email or web address]) Current Condition History of Current Condition Onset Date October 2017 Current Complaints LBP, SI pain L, urinary incontinence, weakness, dysparunia History of Current Condition Jackelyn is a 27 year old female who is 4 months after a c section delivery with her second child . She was seen during her for complaints of left sided sciatica and SI pain. She is continuing to have these symptoms but is also noting urinary incontinence and pelvic pain with intercourse. Treatment Goals Patient/Caregiver Goals to improve strength, decrease pain, improve function and eliminate urinary incontinence Current Functional Impairments (Reported) Functional Limitations- Recreation/ limited with exercise due to Hobbies LBP and SI pain Functional Limitations- Other urinary incontinence and pelvic pain with intercourse PT-OP-C Subjective Start: 03/09/18 14:02 Freq: Status: Active Protocol: Document 06/08/18 13:09 [facility] (Rec: 06/08/18 13:12 [facility] [id number]) OP-PT Subjective Patient Comments Patient Comments Jackelyn reports she is still leaking with exercise and whens he has the urge to void she has difficulty delaying the need to void. PT-OP-F Manual Assessment Start: 03/09/18 14:02 Freq: Status: Active Protocol: Document 03/09/18 13:00 [facility] (Rec: 03/10/18 11:09 [facility] [email or web address]) Manual Assessments Soft Tissue Assessment Soft Tissue Mobility Assessment tightness in the lumbar paraspinals + kenyetta test B Joint Mobility Assessment Joint Mobility Assessment + tests for SI instability including + april test for the SI unlocking B and + ASLR test elevated left pelvis exaggerated lumbar lordosis PT-OP-I Pelvic Floor Start: 03/09/18 14:02 Freq: Status: Active Protocol: Document 03/09/18 13:00 [facility] (Rec: 03/10/18 11:09 [facility] [email or web address]) Pelvic Floor Assessment Urine Pelvic Floor Surgery No Urinary Symptoms Urge Sensation Falling Out Feeling/Heavy Leakage Cause Sneeze Urge Other Leakage Causes sit-stand can also cause leakage Leaks Per Day constant leakage Voiding Frequency 10 times plus Nocturia 3 times per night Urine Pad Type Maxi Pad Pelvic Clock Pelvic Clock 12-3 Atrophy Pelvic Clock 3-6 Guarding Hypertonic Tightness Pelvic Clock 6-9 Tightness Pelvic Clock 9-12 Atrophy Pelvic Clock Other muscle guarding and spasm of the left greater than right illiococcygeus musculature and tightness in the coccygeus SEMG (uV) Baseline 20 Recruitment Pattern Poor/Slow Relaxation Poor/Slow Holding Poor/Slow Stability of Hold Poor/Slow SEMG Stability of Rest Poor/Slow Contraction Ability Manual Muscle Testing Left 1 Manual Muscle Testing Right 2 Manual Muscle Testing Anterior 3 Manual Muscle Testing Posterior 3 Muscle Endurance (Seconds) 3 Comments Pelvic Floor Comments elevated tone on EMG biofeedback at 20 uv initially , this tone only went slightly down with trial of contract relax. I started Jackelyn with stretching exercises for her pelvic floor and lateral hip rotation stretngthening as a way to gently recruit the pelvic floor without causing increased guarding. PT-OP-K Range of Motion Start: 03/09/18 14:02 Freq: Status: Active Protocol: Document 03/09/18 13:00 [facility] (Rec: 03/10/18 11:09 [facility] [email or web address]) Lumbar Spine Range of Motion Lumbar Spine Active Testing Position Standing Flexion 50 Lateral Flexion Left 10 Lateral Flexion Right 15 ROM Limitations Soft Tissue Tightness Comments exaggerated lumbar lordosis in the lumbar spine limits the amout of lumbar spine flexion Hip Goniometric Range of Motion Hip ROM Limitations Hip ROM Limitations Soft Tissue Tightness Comments iliopsoas tightness left greater than right + kenyetta test B PT-OP-Q Treatments Start: 03/09/18 14:02 Freq: Status: Active Protocol: Document 06/08/18 13:50 [facility] (Rec: 06/08/18 13:56 [facility] [id number]) Therapeutic Exercises Supine Exercises 6 Supine Exercise Name hamstring and piriformis stretch 5 Supine Exercise Name TA with marches and up up down down Reps/Minutes x 10 Comments level 1b 4 Supine Exercise Name inner core stabilization with crunches 3 Supine Exercise Name iliopoas stretch in kenyetta test position 1 Supine Exercise Name pelvic floor facilitation with contract relax Reps/Minutes 10 second hold x 10 reps Comments elevated resting tone at 23.7 uv, did not drop with contract relax Sidelying Exercises 1 Sidelying Exercise Name sidelying clam shells with theraband Reps/Minutes 2 x 15 Other Exercises 3 Other Exercise Name clam shells Reps/Minutes 3 x 10 reps 2 Other Exercise Name quadraped TA facilitation and opp arm then opp leg lifts Reps/Minutes 10 reps each 1 Other Exercise Name alfredo pose PT-OP-T Assessment and Plan Start: 03/09/18 14:02 Freq: Status: Active Protocol: Document 06/08/18 13:50 [facility] (Rec: 06/08/18 13:56 [facility] [id number]) Physical Therapy Assessment Assessment Summary Assessment Trial of NMES stimulation today. Jackelyn felt it at level 7 but only from 3-6 on the pelvic clock left side of pelvic floor. Improving resting tone of the pelvic floor from beginning PT but still has a way to go to relax the pelvic floor Physical Therapy Plan Frequency and Duration Frequency of Treatment 1x/Week Duration of Treatment 8 Plan of Care Start Date 05/11/18 Plan of Care End Date 07/11/18 Therapeutic Interventions Therapeutic Interventions Home Exercise Program Manual Therapy Neuromuscular Re-education Self-Care/Home Management Soft Tissue Mobilization Therapeutic Exercises Next Visit Focus/Plan Next Note Type Treatment Note Next Visit Plan begin with iliopsoas stretching next visit
--- NOTE | 2018-06-16 10:21 | PT.OTN ---
Current Diagnoses Pelvic and perineal pain (06/15/18) Physical Therapy Treatment Note PT-OP-A Visit Information Start: 03/09/18 14:02 Freq: Status: Active Protocol: Document 06/15/18 13:00 [facility] (Rec: 06/16/18 10:21 [facility] [email or web address]) Out-Patient Physical Therapy Visit Information Visit Information Visit Type Treatment Note Visit Start Time 13:00 Visit Stop Time 13:45 Total Visit Minutes 45 Visit Number 9 Number of REGISTERED NURSE RENAL Visits 0 PT-OP-B Current Condition Start: 03/09/18 14:02 Freq: Status: Active Protocol: Document 03/09/18 13:00 [facility] (Rec: 03/10/18 11:09 [facility] [email or web address]) Current Condition History of Current Condition Onset Date October 2017 Current Complaints LBP, SI pain L, urinary incontinence, weakness, dysparunia History of Current Condition Jackelyn is a 27 year old female who is 4 months after a c section delivery with her second child . She was seen during her for complaints of left sided sciatica and SI pain. She is continuing to have these symptoms but is also noting urinary incontinence and pelvic pain with intercourse. Treatment Goals Patient/Caregiver Goals to improve strength, decrease pain, improve function and eliminate urinary incontinence Current Functional Impairments (Reported) Functional Limitations- Recreation/ limited with exercise due to Hobbies LBP and SI pain Functional Limitations- Other urinary incontinence and pelvic pain with intercourse PT-OP-C Subjective Start: 03/09/18 14:02 Freq: Status: Active Protocol: Document 06/15/18 13:00 [facility] (Rec: 06/16/18 10:21 [facility] [email or web address]) OP-PT Subjective Patient Comments Patient Comments Jackelyn reports her low back and sacrum are both very sore today PT-OP-F Manual Assessment Start: 03/09/18 14:02 Freq: Status: Active Protocol: Document 03/09/18 13:00 [facility] (Rec: 03/10/18 11:09 [facility] [email or web address]) Manual Assessments Soft Tissue Assessment Soft Tissue Mobility Assessment tightness in the lumbar paraspinals + kenyetta test B Joint Mobility Assessment Joint Mobility Assessment + tests for SI instability including + april test for the SI unlocking B and + ASLR test elevated left pelvis exaggerated lumbar lordosis PT-OP-I Pelvic Floor Start: 03/09/18 14:02 Freq: Status: Active Protocol: Document 03/09/18 13:00 [facility] (Rec: 03/10/18 11:09 [facility] [email or web address]) Pelvic Floor Assessment Urine Pelvic Floor Surgery No Urinary Symptoms Urge Sensation Falling Out Feeling/Heavy Leakage Cause Sneeze Urge Other Leakage Causes sit-stand can also cause leakage Leaks Per Day constant leakage Voiding Frequency 10 times plus Nocturia 3 times per night Urine Pad Type Maxi Pad Pelvic Clock Pelvic Clock 12-3 Atrophy Pelvic Clock 3-6 Guarding Hypertonic Tightness Pelvic Clock 6-9 Tightness Pelvic Clock 9-12 Atrophy Pelvic Clock Other muscle guarding and spasm of the left greater than right illiococcygeus musculature and tightness in the coccygeus SEMG (uV) Baseline 20 Recruitment Pattern Poor/Slow Relaxation Poor/Slow Holding Poor/Slow Stability of Hold Poor/Slow SEMG Stability of Rest Poor/Slow Contraction Ability Manual Muscle Testing Left 1 Manual Muscle Testing Right 2 Manual Muscle Testing Anterior 3 Manual Muscle Testing Posterior 3 Muscle Endurance (Seconds) 3 Comments Pelvic Floor Comments elevated tone on EMG biofeedback at 20 uv initially , this tone only went slightly down with trial of contract relax. I started Jackelyn with stretching exercises for her pelvic floor and lateral hip rotation stretngthening as a way to gently recruit the pelvic floor without causing increased guarding. PT-OP-K Range of Motion Start: 03/09/18 14:02 Freq: Status: Active Protocol: Document 03/09/18 13:00 [facility] (Rec: 03/10/18 11:09 [facility] [email or web address]) Lumbar Spine Range of Motion Lumbar Spine Active Testing Position Standing Flexion 50 Lateral Flexion Left 10 Lateral Flexion Right 15 ROM Limitations Soft Tissue Tightness Comments exaggerated lumbar lordosis in the lumbar spine limits the amout of lumbar spine flexion Hip Goniometric Range of Motion Hip ROM Limitations Hip ROM Limitations Soft Tissue Tightness Comments iliopsoas tightness left greater than right + kenyetta test B PT-OP-Q Treatments Start: 03/09/18 14:02 Freq: Status: Active Protocol: Document 06/15/18 13:00 [facility] (Rec: 06/16/18 10:21 [facility] [email or web address]) Manual Therapy Treatment Soft Tissue Mobilization 5 Body Location piriformis release bilaterally 1 Body Location left QL and sacral region decompression Mobilization Type Myofascial Release Body Position Prone Joint Mobilizations 2 Joint sacral mobilizations into counter nutation Comments MET and manual mobilizations Manual Techniques 2 Type piriformis stretch in prone PT-OP-T Assessment and Plan Start: 03/09/18 14:02 Freq: Status: Active Protocol: Document 06/15/18 13:00 [facility] (Rec: 06/16/18 10:21 [facility] [email or web address]) Physical Therapy Assessment Assessment Summary Assessment worked on releasing at the sacrum today, still very guarded in this region, discussed posterior pelvic tay stretches and low back stretches to reduce lordosis Physical Therapy Plan Frequency and Duration Frequency of Treatment 1x/Week Duration of Treatment 8 Plan of Care Start Date 06/10/18 Plan of Care End Date 10/08/18 Therapeutic Interventions Therapeutic Interventions Home Exercise Program Manual Therapy Neuromuscular Re-education Self-Care/Home Management Soft Tissue Mobilization Therapeutic Exercises Next Visit Focus/Plan Next Note Type Treatment Note Next Visit Plan stabilization for the low back pelvis and continue to work on flexibility exercises
--- NOTE | 2018-06-23 12:00 | PT.OTN ---
Current Diagnoses Pelvic and perineal pain (06/22/18) Physical Therapy Treatment Note PT-OP-A Visit Information Start: 03/09/18 14:02 Freq: Status: Active Protocol: Document 06/22/18 11:50 [facility] (Rec: 06/23/18 12:00 [facility] [email or web address]) Out-Patient Physical Therapy Visit Information Visit Information Visit Type Treatment Note Visit Start Time 13:00 Visit Stop Time 13:45 Total Visit Minutes 45 Visit Number 10 Number of MANAGER MEDICAL DEVICE Visits 0 PT-OP-B Current Condition Start: 03/09/18 14:02 Freq: Status: Active Protocol: Document 03/09/18 13:00 [facility] (Rec: 03/10/18 11:09 [facility] [email or web address]) Current Condition History of Current Condition Onset Date October 2017 Current Complaints LBP, SI pain L, urinary incontinence, weakness, dysparunia History of Current Condition Jackelyn is a 27 year old female who is 4 months after a c section delivery with her second child . She was seen during her for complaints of left sided sciatica and SI pain. She is continuing to have these symptoms but is also noting urinary incontinence and pelvic pain with intercourse. Treatment Goals Patient/Caregiver Goals to improve strength, decrease pain, improve function and eliminate urinary incontinence Current Functional Impairments (Reported) Functional Limitations- Recreation/ limited with exercise due to Hobbies LBP and SI pain Functional Limitations- Other urinary incontinence and pelvic pain with intercourse PT-OP-C Subjective Start: 03/09/18 14:02 Freq: Status: Active Protocol: Document 06/22/18 11:50 [facility] (Rec: 06/23/18 12:00 [facility] [email or web address]) OP-PT Subjective Patient Comments Patient Comments Reports she is getting trigger injections into the c section scar. Feels like her back is really flared up today PT-OP-F Manual Assessment Start: 03/09/18 14:02 Freq: Status: Active Protocol: Document 03/09/18 13:00 [facility] (Rec: 03/10/18 11:09 [facility] [email or web address]) Manual Assessments Soft Tissue Assessment Soft Tissue Mobility Assessment tightness in the lumbar paraspinals + kenyetta test B Joint Mobility Assessment Joint Mobility Assessment + tests for SI instability including + april test for the SI unlocking B and + ASLR test elevated left pelvis exaggerated lumbar lordosis PT-OP-I Pelvic Floor Start: 03/09/18 14:02 Freq: Status: Active Protocol: Document 03/09/18 13:00 [facility] (Rec: 03/10/18 11:09 [facility] [email or web address]) Pelvic Floor Assessment Urine Pelvic Floor Surgery No Urinary Symptoms Urge Sensation Falling Out Feeling/Heavy Leakage Cause Sneeze Urge Other Leakage Causes sit-stand can also cause leakage Leaks Per Day constant leakage Voiding Frequency 10 times plus Nocturia 3 times per night Urine Pad Type Maxi Pad Pelvic Clock Pelvic Clock 12-3 Atrophy Pelvic Clock 3-6 Guarding Hypertonic Tightness Pelvic Clock 6-9 Tightness Pelvic Clock 9-12 Atrophy Pelvic Clock Other muscle guarding and spasm of the left greater than right illiococcygeus musculature and tightness in the coccygeus SEMG (uV) Baseline 20 Recruitment Pattern Poor/Slow Relaxation Poor/Slow Holding Poor/Slow Stability of Hold Poor/Slow SEMG Stability of Rest Poor/Slow Contraction Ability Manual Muscle Testing Left 1 Manual Muscle Testing Right 2 Manual Muscle Testing Anterior 3 Manual Muscle Testing Posterior 3 Muscle Endurance (Seconds) 3 Comments Pelvic Floor Comments elevated tone on EMG biofeedback at 20 uv initially , this tone only went slightly down with trial of contract relax. I started Jackelyn with stretching exercises for her pelvic floor and lateral hip rotation stretngthening as a way to gently recruit the pelvic floor without causing increased guarding. PT-OP-K Range of Motion Start: 03/09/18 14:02 Freq: Status: Active Protocol: Document 03/09/18 13:00 [facility] (Rec: 03/10/18 11:09 [facility] [email or web address]) Lumbar Spine Range of Motion Lumbar Spine Active Testing Position Standing Flexion 50 Lateral Flexion Left 10 Lateral Flexion Right 15 ROM Limitations Soft Tissue Tightness Comments exaggerated lumbar lordosis in the lumbar spine limits the amout of lumbar spine flexion Hip Goniometric Range of Motion Hip ROM Limitations Hip ROM Limitations Soft Tissue Tightness Comments iliopsoas tightness left greater than right + kenyetta test B PT-OP-Q Treatments Start: 03/09/18 14:02 Freq: Status: Active Protocol: Document 06/22/18 11:50 [facility] (Rec: 06/23/18 12:00 [facility] [email or web address]) Therapeutic Exercises Supine Exercises 3 Supine Exercise Name iliopoas stretch in kenyetta test position Standing Exercises 1 Standing Exercise Name standing posterior pelvic tilts against the wall Reps/Minutes x 10 reps Comments against the wall Other Exercises 4 Other Exercise Name cat cow Reps/Minutes x 10 reps 1 Other Exercise Name alfredo pose Reps/Minutes hodl 1-2 minutes Manual Therapy Treatment Soft Tissue Mobilization 5 Body Location piriformis release bilaterally 2 Body Location scar tissue release over the c -section scar 1 Body Location left QL and sacral region decompression Mobilization Type Myofascial Release Body Position Prone Manual Techniques 5 Type manual sacral mobilization into counter nutation Reps/Duration with MET and manual mobilization PT-OP-T Assessment and Plan Start: 03/09/18 14:02 Freq: Status: Active Protocol: Document 06/22/18 11:50 [facility] (Rec: 06/23/18 12:00 [facility] [email or web address]) Physical Therapy Assessment Assessment Summary Assessment worked on posterior pelvic tilting and standing wall posterior tilts as Jackelyn still tends to want to be in a exaggerated anteior pelvic tilt Physical Therapy Plan Frequency and Duration Frequency of Treatment 1x/Week Duration of Treatment 8 Plan of Care Start Date 06/10/18 Plan of Care End Date 10/08/18 Therapeutic Interventions Therapeutic Interventions Home Exercise Program Manual Therapy Neuromuscular Re-education Self-Care/Home Management Soft Tissue Mobilization Therapeutic Exercises Next Visit Focus/Plan Next Note Type Treatment Note Next Visit Plan stabilization for the low back pelvis and continue to work on flexibility exercises
--- NOTE | 2018-06-29 14:31 | PT.OTN ---
Current Diagnoses Pelvic and perineal pain (06/29/18) Physical Therapy Treatment Note PT-OP-A Visit Information Start: 03/09/18 14:02 Freq: Status: Active Protocol: Document 06/29/18 14:26 [facility] (Rec: 06/29/18 14:31 [facility] [email or web address]) Out-Patient Physical Therapy Visit Information Visit Information Visit Type Treatment Note Visit Start Time 13:00 Visit Stop Time 13:45 Total Visit Minutes 45 Visit Number 11 Number of RISK CONTROL CONSULTANT Visits 0 PT-OP-B Current Condition Start: 03/09/18 14:02 Freq: Status: Active Protocol: Document 03/09/18 13:00 [facility] (Rec: 03/10/18 11:09 [facility] [email or web address]) Current Condition History of Current Condition Onset Date October 2017 Current Complaints LBP, SI pain L, urinary incontinence, weakness, dysparunia History of Current Condition Jackelyn is a 27 year old female who is 4 months after a c section delivery with her second child . She was seen during her for complaints of left sided sciatica and SI pain. She is continuing to have these symptoms but is also noting urinary incontinence and pelvic pain with intercourse. Treatment Goals Patient/Caregiver Goals to improve strength, decrease pain, improve function and eliminate urinary incontinence Current Functional Impairments (Reported) Functional Limitations- Recreation/ limited with exercise due to Hobbies LBP and SI pain Functional Limitations- Other urinary incontinence and pelvic pain with intercourse PT-OP-C Subjective Start: 03/09/18 14:02 Freq: Status: Active Protocol: Document 06/29/18 14:26 [facility] (Rec: 06/29/18 14:31 [facility] [email or web address]) OP-PT Subjective Patient Comments Patient Comments injection into scar is helping, also thinking about pink panther and tucking her low back under feels good PT-OP-F Manual Assessment Start: 03/09/18 14:02 Freq: Status: Active Protocol: Document 03/09/18 13:00 [facility] (Rec: 03/10/18 11:09 [facility] [email or web address]) Manual Assessments Soft Tissue Assessment Soft Tissue Mobility Assessment tightness in the lumbar paraspinals + kenyetta test B Joint Mobility Assessment Joint Mobility Assessment + tests for SI instability including April test for the SI unlocking B and + ASLR test elevated left pelvis exaggerated lumbar lordosis PT-OP-I Pelvic Floor Start: 03/09/18 14:02 Freq: Status: Active Protocol: Document 03/09/18 13:00 [facility] (Rec: 03/10/18 11:09 [facility] [email or web address]) Pelvic Floor Assessment Urine Pelvic Floor Surgery No Urinary Symptoms Urge Sensation Falling Out Feeling/Heavy Leakage Cause Sneeze Urge Other Leakage Causes sit-stand can also cause leakage Leaks Per Day constant leakage Voiding Frequency 10 times plus Nocturia 3 times per night Urine Pad Type Maxi Pad Pelvic Clock Pelvic Clock 12-3 Atrophy Pelvic Clock 3-6 Guarding Hypertonic Tightness Pelvic Clock 6-9 Tightness Pelvic Clock 9-12 Atrophy Pelvic Clock Other muscle guarding and spasm of the left greater than right illiococcygeus musculature and tightness in the coccygeus SEMG (uV) Baseline 20 Recruitment Pattern Poor/Slow Relaxation Poor/Slow Holding Poor/Slow Stability of Hold Poor/Slow SEMG Stability of Rest Poor/Slow Contraction Ability Manual Muscle Testing Left 1 Manual Muscle Testing Right 2 Manual Muscle Testing Anterior 3 Manual Muscle Testing Posterior 3 Muscle Endurance (Seconds) 3 Comments Pelvic Floor Comments elevated tone on EMG biofeedback at 20 uv initially , this tone only went slightly down with trial of contract relax. I started aJckelyn with stretching exercises for her pelvic floor and lateral hip rotation stretngthening as a way to gently recruit the pelvic floor without causing increased guarding. PT-OP-K Range of Motion Start: 03/09/18 14:02 Freq: Status: Active Protocol: Document 03/09/18 13:00 [facility] (Rec: 03/10/18 11:09 [facility] [email or web address]) Lumbar Spine Range of Motion Lumbar Spine Active Testing Position Standing Flexion 50 Lateral Flexion Left 10 Lateral Flexion Right 15 ROM Limitations Soft Tissue Tightness Comments exaggerated lumbar lordosis in the lumbar spine limits the amout of lumbar spine flexion Hip Goniometric Range of Motion Hip ROM Limitations Hip ROM Limitations Soft Tissue Tightness Comments iliopsoas tightness left greater than right + kenyetta test B PT-OP-Q Treatments Start: 03/09/18 14:02 Freq: Status: Active Protocol: Document 06/29/18 14:26 [facility] (Rec: 06/29/18 14:31 [facility] [email or web address]) Therapeutic Exercises Supine Exercises 10 Supine Exercise Name pelvic tilt then abdominat crunch with TA and pelvic floor Sitting Exercises 1 Sitting Exercise Name long sitting lumbar stretch Standing Exercises 2 Standing Exercise Name standing stretch over the table for lumbar flexion 1 Standing Exercise Name standing posterior pelvic tilts against the wall Reps/Minutes x 10 reps Comments against the wall Other Exercises 4 Other Exercise Name cat cow Reps/Minutes x 10 reps 1 Other Exercise Name alfredo pose Reps/Minutes hodl 1-2 minutes Manual Therapy Treatment Soft Tissue Mobilization 5 Body Location piriformis release bilaterally 1 Body Location left QL and sacral region decompression Mobilization Type Myofascial Release Body Position Prone Joint Mobilizations 2 Joint sacral mobilizations into counter nutation Comments MET and manual mobilizations PT-OP-T Assessment and Plan Start: 03/09/18 14:02 Freq: Status: Active Protocol: Document 06/29/18 14:26 [facility] (Rec: 06/29/18 14:31 [facility] [email or web address]) Physical Therapy Assessment Assessment Summary Assessment needs continued work on lumbar flexion, added in a flexion stretch over the table and small crunches in flexion Physical Therapy Plan Next Visit Focus/Plan Next Note Type Treatment Note Next Visit Plan stabilization for the low back pelvis and continue to work on flexibility exercises
--- NOTE | 2018-07-26 18:28 | PT.OTN ---
Current Diagnoses Pelvic and perineal pain (07/19/18) Physical Therapy Treatment Note PT-OP-A Visit Information Start: 03/09/18 14:02 Freq: Status: Active Protocol: Document 07/19/18 11:15 [facility] (Rec: 07/26/18 18:28 [facility] [email or web address]) Out-Patient Physical Therapy Visit Information Visit Information Visit Type Treatment Note Visit Start Time 11:30 Visit Stop Time 12:15 Total Visit Minutes 45 Visit Number 12 Number of DRIVER EXAMINER Visits 0 PT-OP-B Current Condition Start: 03/09/18 14:02 Freq: Status: Active Protocol: Document 03/09/18 13:00 [facility] (Rec: 03/10/18 11:09 [facility] [email or web address]) Current Condition History of Current Condition Onset Date October 2017 Current Complaints LBP, SI pain L, urinary incontinence, weakness, dysparunia History of Current Condition Jackelyn is a 27 year old female who is 4 months after a c section delivery with her second child . She was seen during her for complaints of left sided sciatica and SI pain. She is continuing to have these symptoms but is also noting urinary incontinence and pelvic pain with intercourse. Treatment Goals Patient/Caregiver Goals to improve strength, decrease pain, improve function and eliminate urinary incontinence Current Functional Impairments (Reported) Functional Limitations- Recreation/ limited with exercise due to Hobbies LBP and SI pain Functional Limitations- Other urinary incontinence and pelvic pain with intercourse PT-OP-C Subjective Start: 03/09/18 14:02 Freq: Status: Active Protocol: Document 07/19/18 11:15 [facility] (Rec: 07/26/18 18:28 [facility] [email or web address]) OP-PT Subjective Patient Comments Patient Comments Jackelyn reports she would like to try chiropractic to see if she can get more movement in the lumbar spine PT-OP-F Manual Assessment Start: 03/09/18 14:02 Freq: Status: Active Protocol: Document 03/09/18 13:00 [facility] (Rec: 03/10/18 11:09 [facility] [email or web address]) Manual Assessments Soft Tissue Assessment Soft Tissue Mobility Assessment tightness in the lumbar paraspinals + kenyetta test B Joint Mobility Assessment Joint Mobility Assessment + tests for SI instability including + april test for the SI unlocking B and + ASLR test elevated left pelvis exaggerated lumbar lordosis PT-OP-I Pelvic Floor Start: 03/09/18 14:02 Freq: Status: Active Protocol: Document 03/09/18 13:00 [facility] (Rec: 03/10/18 11:09 [facility] [email or web address]) Pelvic Floor Assessment Urine Pelvic Floor Surgery No Urinary Symptoms Urge Sensation Falling Out Feeling/Heavy Leakage Cause Sneeze Urge Other Leakage Causes sit-stand can also cause leakage Leaks Per Day constant leakage Voiding Frequency 10 times plus Nocturia 3 times per night Urine Pad Type Maxi Pad Pelvic Clock Pelvic Clock 12-3 Atrophy Pelvic Clock 3-6 Guarding Hypertonic Tightness Pelvic Clock 6-9 Tightness Pelvic Clock 9-12 Atrophy Pelvic Clock Other muscle guarding and spasm of the left greater than right illiococcygeus musculature and tightness in the coccygeus SEMG (uV) Baseline 20 Recruitment Pattern Poor/Slow Relaxation Poor/Slow Holding Poor/Slow Stability of Hold Poor/Slow SEMG Stability of Rest Poor/Slow Contraction Ability Manual Muscle Testing Left 1 Manual Muscle Testing Right 2 Manual Muscle Testing Anterior 3 Manual Muscle Testing Posterior 3 Muscle Endurance (Seconds) 3 Comments Pelvic Floor Comments elevated tone on EMG biofeedback at 20 uv initially , this tone only went slightly down with trial of contract relax. I started Jackelyn with stretching exercises for her pelvic floor and lateral hip rotation stretngthening as a way to gently recruit the pelvic floor without causing increased guarding. PT-OP-K Range of Motion Start: 03/09/18 14:02 Freq: Status: Active Protocol: Document 03/09/18 13:00 [facility] (Rec: 03/10/18 11:09 [facility] [email or web address]) Lumbar Spine Range of Motion Lumbar Spine Active Testing Position Standing Flexion 50 Lateral Flexion Left 10 Lateral Flexion Right 15 ROM Limitations Soft Tissue Tightness Comments exaggerated lumbar lordosis in the lumbar spine limits the amout of lumbar spine flexion Hip Goniometric Range of Motion Hip ROM Limitations Hip ROM Limitations Soft Tissue Tightness Comments iliopsoas tightness left greater than right + kenyetta test B PT-OP-Q Treatments Start: 03/09/18 14:02 Freq: Status: Active Protocol: Document 07/19/18 11:15 [facility] (Rec: 07/26/18 18:28 [facility] [email or web address]) Therapeutic Exercises Sitting Exercises 1 Sitting Exercise Name long sitting lumbar stretch Standing Exercises 1 Standing Exercise Name standing posterior pelvic tilts against the wall Reps/Minutes x 10 reps Comments against the wall Other Exercises 4 Other Exercise Name cat cow Reps/Minutes x 10 reps 2 Other Exercise Name quadraped TA facilitation and opp arm then opp leg lifts Reps/Minutes 10 reps each 1 Other Exercise Name alfredo pose Reps/Minutes hodl 1-2 minutes Manual Therapy Treatment Soft Tissue Mobilization 5 Body Location piriformis release bilaterally 1 Body Location left QL and sacral region decompression Mobilization Type Myofascial Release Body Position Prone Joint Mobilizations 2 Joint sacral mobilizations into counter nutation Comments MET and manual mobilizations Manual Techniques 2 Type piriformis stretch in prone PT-OP-T Assessment and Plan Start: 03/09/18 14:02 Freq: Status: Active Protocol: Document 07/19/18 11:15 [facility] (Rec: 07/26/18 18:28 [facility] [email or web address]) Physical Therapy Assessment Assessment Summary Assessment Jackelyn may also benefit from a Xray of the lumbar spine as she is still stuck in extension in the lower lumbar region. Physical Therapy Plan Frequency and Duration Frequency of Treatment 1x/Week Duration of Treatment 8 Plan of Care Start Date 06/10/18 Plan of Care End Date 10/08/18 Next Visit Focus/Plan Next Note Type Treatment Note Next Visit Plan stabilization for the low back pelvis and continue to work on flexibility exercises
--- NOTE | 2018-07-26 18:30 | PT.OPPOC ---
Current Diagnoses Pelvic and perineal pain (07/19/18) Provider Visit Care Team Role Provider Type Daisy Lynn MD Attending Provider Non-Staff Primary Care Provider Specialty: GAME B[employer] F[employer]ER Address: [address] [place] [address], [id number] Email: Plan Of Care PT-OP-T Assessment and Plan Start: 03/09/18 14:02 Freq: Status: Active Protocol: Document 07/19/18 11:15 [facility] (Rec: 07/26/18 18:28 [facility] [email or web address]) Physical Therapy Assessment Assessment Summary Assessment Jackelyn may also benefit from a Xray of the lumbar spine as she is still stuck in extension in the lower lumbar region. Physical Therapy Plan Frequency and Duration Frequency of Treatment 1x/Week Duration of Treatment 8 Plan of Care Start Date 06/29/18 Plan of Care End Date 09/04/18 Next Visit Focus/Plan Next Note Type Treatment Note Next Visit Plan stabilization for the low back pelvis and continue to work on flexibility exercises Plan of Care Dates Plan of Care Start Date 06/29/18 Plan of Care End Date 09/04/18 Please Sign and Return: I have reviewed this Plan of Care and certify that the skilled therapy services above are required to meet the patient?s needs. Physician Signature Date Printed Name and Credentials Clinical Instructor Signature Printed Name and Credentials
--- NOTE | 2018-08-11 09:25 | PT.OTN ---
Current Diagnoses Pelvic and perineal pain (08/10/18) Physical Therapy Treatment Note PT-OP-A Visit Information Start: 03/09/18 14:02 Freq: Status: Active Protocol: Document 08/10/18 12:15 [facility] (Rec: 08/11/18 09:23 [facility] [email or web address]) Out-Patient Physical Therapy Visit Information Visit Information Visit Type Treatment Note Visit Start Time 12:15 Visit Stop Time 13:00 Total Visit Minutes 45 Visit Number 13 Number of FLAME ANNEALING MACHINE SETTER Visits 0 PT-OP-B Current Condition Start: 03/09/18 14:02 Freq: Status: Active Protocol: Document 03/09/18 13:00 [facility] (Rec: 03/10/18 11:09 [facility] [email or web address]) Current Condition History of Current Condition Onset Date October 2017 Current Complaints LBP, SI pain L, urinary incontinence, weakness, dysparunia History of Current Condition Jackelyn is a 27 year old female who is 4 months after a c section delivery with her second child . She was seen during her for complaints of left sided sciatica and SI pain. She is continuing to have these symptoms but is also noting urinary incontinence and pelvic pain with intercourse. Treatment Goals Patient/Caregiver Goals to improve strength, decrease pain, improve function and eliminate urinary incontinence Current Functional Impairments (Reported) Functional Limitations- Recreation/ limited with exercise due to Hobbies LBP and SI pain Functional Limitations- Other urinary incontinence and pelvic pain with intercourse PT-OP-C Subjective Start: 03/09/18 14:02 Freq: Status: Active Protocol: Document 08/10/18 12:15 [facility] (Rec: 08/11/18 09:23 [facility] [email or web address]) OP-PT Subjective Patient Comments Patient Comments Jackelyn saw a osteopath but hasn't felt a change in symptoms. Still feeling like she is unable to flex her lumbar spine at the lower levels PT-OP-F Manual Assessment Start: 03/09/18 14:02 Freq: Status: Active Protocol: Document 03/09/18 13:00 [facility] (Rec: 03/10/18 11:09 [facility] [email or web address]) Manual Assessments Soft Tissue Assessment Soft Tissue Mobility Assessment tightness in the lumbar paraspinals + kenyetta test B Joint Mobility Assessment Joint Mobility Assessment + tests for SI instability including + april test for the SI unlocking B and + ASLR test elevated left pelvis exaggerated lumbar lordosis PT-OP-I Pelvic Floor Start: 03/09/18 14:02 Freq: Status: Active Protocol: Document 03/09/18 13:00 [facility] (Rec: 03/10/18 11:09 [facility] [email or web address]) Pelvic Floor Assessment Urine Pelvic Floor Surgery No Urinary Symptoms Urge Sensation Falling Out Feeling/Heavy Leakage Cause Sneeze Urge Other Leakage Causes sit-stand can also cause leakage Leaks Per Day constant leakage Voiding Frequency 10 times plus Nocturia 3 times per night Urine Pad Type Maxi Pad Pelvic Clock Pelvic Clock 12-3 Atrophy Pelvic Clock 3-6 Guarding Hypertonic Tightness Pelvic Clock 6-9 Tightness Pelvic Clock 9-12 Atrophy Pelvic Clock Other muscle guarding and spasm of the left greater than right illiococcygeus musculature and tightness in the coccygeus SEMG (uV) Baseline 20 Recruitment Pattern Poor/Slow Relaxation Poor/Slow Holding Poor/Slow Stability of Hold Poor/Slow SEMG Stability of Rest Poor/Slow Contraction Ability Manual Muscle Testing Left 1 Manual Muscle Testing Right 2 Manual Muscle Testing Anterior 3 Manual Muscle Testing Posterior 3 Muscle Endurance (Seconds) 3 Comments Pelvic Floor Comments elevated tone on EMG biofeedback at 20 uv initially , this tone only went slightly down with trial of contract relax. I started Jackelyn with stretching exercises for her pelvic floor and lateral hip rotation stretngthening as a way to gently recruit the pelvic floor without causing increased guarding. PT-OP-K Range of Motion Start: 03/09/18 14:02 Freq: Status: Active Protocol: Document 03/09/18 13:00 [facility] (Rec: 03/10/18 11:09 [facility] [email or web address]) Lumbar Spine Range of Motion Lumbar Spine Active Testing Position Standing Flexion 50 Lateral Flexion Left 10 Lateral Flexion Right 15 ROM Limitations Soft Tissue Tightness Comments exaggerated lumbar lordosis in the lumbar spine limits the amout of lumbar spine flexion Hip Goniometric Range of Motion Hip ROM Limitations Hip ROM Limitations Soft Tissue Tightness Comments iliopsoas tightness left greater than right + kenyetta test B PT-OP-Q Treatments Start: 03/09/18 14:02 Freq: Status: Active Protocol: Document 08/10/18 12:15 [facility] (Rec: 08/11/18 09:23 [facility] [email or web address]) Gym Equipment Shuttle Rebound 1 Exercise Details leg press with core activation Reps/Duration x 10 reps Comments working on core activation for lumbar flexion Therapeutic Exercises Other Exercises 7 Other Exercise Name roll outs with ball on knees in neutral spine Comments core activation in neutral 6 Other Exercise Name seated lumbar flexion 5 Other Exercise Name standing low back stretch into flexion holding onto the cable pole 4 Other Exercise Name cat cow Reps/Minutes x 10 reps 3 Other Exercise Name prone stretch over the ball for lumbar flexion 2 Other Exercise Name quadraped TA facilitation and opp arm then opp leg lifts Reps/Minutes 10 reps each 1 Other Exercise Name alfredo pose Reps/Minutes hodl 1-2 minutes Manual Therapy Treatment Soft Tissue Mobilization 4 Body Location right sidelying lumbar flexion with MET into flexion Comments gapping technique to induce flexion in the lumbar spine 3 Body Location MFR to the lumbar paraspinals in shilds pose following ultrasound PT-OP-R Modalities Start: 08/11/18 09:23 Freq: Status: Active Protocol: Document 08/10/18 12:15 [facility] (Rec: 08/11/18 09:25 [facility] [email or web address]) Ultrasound Therapy Treatment Lower Back Treatment Duration (minutes) 8 Patient Position Prone Coupling Medium Ultrasound Gel Applicator Size (cm2) 5 Mode Setting Continuous Duty Cycle 100% Intensity Setting (w/cm2) 1.5 Comments pt in alfredo pose with lumbar flexion for the traction PT-OP-T Assessment and Plan Start: 03/09/18 14:02 Freq: Status: Active Protocol: Document 08/10/18 12:15 [facility] (Rec: 08/11/18 09:23 [facility] [email or web address]) Physical Therapy Assessment Assessment Summary Assessment Jackelyn was able to facilitate flexion both in sitting and standing today in the lower lumbar spine. Work again in alfredo pose with ultrasound and continue to improve core strength for improved lumbar flexion mobility Physical Therapy Plan Frequency and Duration Frequency of Treatment 1x/Week Duration of Treatment 8 Plan of Care Start Date 06/29/18 Plan of Care End Date 09/04/18 Therapeutic Interventions Therapeutic Interventions Home Exercise Program Manual Therapy Neuromuscular Re-education Self-Care/Home Management Soft Tissue Mobilization Therapeutic Exercises Next Visit Focus/Plan Next Note Type Treatment Note Next Visit Plan alfredo pose with back in flexion for Ultrasound and manual work, continue to progress core stabilization
--- NOTE | 2018-08-25 08:41 | PT.OTN ---
Current Diagnoses Pelvic and perineal pain (08/24/18) Physical Therapy Treatment Note PT-OP-A Visit Information Start: 03/09/18 14:02 Freq: Status: Active Protocol: Document 08/24/18 12:15 [facility] (Rec: 08/25/18 08:41 [facility] [email or web address]) Out-Patient Physical Therapy Visit Information Visit Information Visit Type Treatment Note Visit Start Time 12:15 Visit Stop Time 13:00 Total Visit Minutes 45 Visit Number 14 Number of ELECTRICAL TROUBLESHOOTER Visits 0 PT-OP-B Current Condition Start: 03/09/18 14:02 Freq: Status: Active Protocol: Document 03/09/18 13:00 [facility] (Rec: 03/10/18 11:09 [facility] [email or web address]) Current Condition History of Current Condition Onset Date October 2017 Current Complaints LBP, SI pain L, urinary incontinence, weakness, dysparunia History of Current Condition Jackelyn is a 27 year old female who is 4 months after a c section delivery with her second child . She was seen during her for complaints of left sided sciatica and SI pain. She is continuing to have these symptoms but is also noting urinary incontinence and pelvic pain with intercourse. Treatment Goals Patient/Caregiver Goals to improve strength, decrease pain, improve function and eliminate urinary incontinence Current Functional Impairments (Reported) Functional Limitations- Recreation/ limited with exercise due to Hobbies LBP and SI pain Functional Limitations- Other urinary incontinence and pelvic pain with intercourse PT-OP-C Subjective Start: 03/09/18 14:02 Freq: Status: Active Protocol: Document 08/24/18 12:15 [facility] (Rec: 08/25/18 08:41 [facility] [email or web address]) OP-PT Subjective Patient Comments Patient Comments Jackelyn notes she is able to feel a little flexion now in her spine. She is still sore but feeling more movement PT-OP-F Manual Assessment Start: 03/09/18 14:02 Freq: Status: Active Protocol: Document 03/09/18 13:00 [facility] (Rec: 03/10/18 11:09 [facility] [email or web address]) Manual Assessments Soft Tissue Assessment Soft Tissue Mobility Assessment tightness in the lumbar paraspinals + kenyetta test B Joint Mobility Assessment Joint Mobility Assessment + tests for SI instability including + april test for the SI unlocking B and + ASLR test elevated left pelvis exaggerated lumbar lordosis PT-OP-I Pelvic Floor Start: 03/09/18 14:02 Freq: Status: Active Protocol: Document 03/09/18 13:00 [facility] (Rec: 03/10/18 11:09 [facility] [email or web address]) Pelvic Floor Assessment Urine Pelvic Floor Surgery No Urinary Symptoms Urge Sensation Falling Out Feeling/Heavy Leakage Cause Sneeze Urge Other Leakage Causes sit-stand can also cause leakage Leaks Per Day constant leakage Voiding Frequency 10 times plus Nocturia 3 times per night Urine Pad Type Maxi Pad Pelvic Clock Pelvic Clock 12-3 Atrophy Pelvic Clock 3-6 Guarding Hypertonic Tightness Pelvic Clock 6-9 Tightness Pelvic Clock 9-12 Atrophy Pelvic Clock Other muscle guarding and spasm of the left greater than right illiococcygeus musculature and tightness in the coccygeus SEMG (uV) Baseline 20 Recruitment Pattern Poor/Slow Relaxation Poor/Slow Holding Poor/Slow Stability of Hold Poor/Slow SEMG Stability of Rest Poor/Slow Contraction Ability Manual Muscle Testing Left 1 Manual Muscle Testing Right 2 Manual Muscle Testing Anterior 3 Manual Muscle Testing Posterior 3 Muscle Endurance (Seconds) 3 Comments Pelvic Floor Comments elevated tone on EMG biofeedback at 20 uv initially , this tone only went slightly down with trial of contract relax. I started Jackelyn with stretching exercises for her pelvic floor and lateral hip rotation stretngthening as a way to gently recruit the pelvic floor without causing increased guarding. PT-OP-K Range of Motion Start: 03/09/18 14:02 Freq: Status: Active Protocol: Document 03/09/18 13:00 [facility] (Rec: 03/10/18 11:09 [facility] [email or web address]) Lumbar Spine Range of Motion Lumbar Spine Active Testing Position Standing Flexion 50 Lateral Flexion Left 10 Lateral Flexion Right 15 ROM Limitations Soft Tissue Tightness Comments exaggerated lumbar lordosis in the lumbar spine limits the amout of lumbar spine flexion Hip Goniometric Range of Motion Hip ROM Limitations Hip ROM Limitations Soft Tissue Tightness Comments iliopsoas tightness left greater than right + kenyetta test B PT-OP-Q Treatments Start: 03/09/18 14:02 Freq: Status: Active Protocol: Document 08/24/18 12:15 [facility] (Rec: 08/25/18 08:41 [facility] [email or web address]) Therapeutic Exercises Supine Exercises 13 Supine Exercise Name TA with marches and single knee to chest 12 Supine Exercise Name pilates 100 11 Supine Exercise Name crunches with ball squeeze Reps/Minutes 2x10 3 Supine Exercise Name iliopoas stretch in kenyetta test position Other Exercises 6 Other Exercise Name seated lumbar flexion 5 Other Exercise Name standing low back stretch into flexion holding onto the cable pole 4 Other Exercise Name cat cow Reps/Minutes x 10 reps 2 Other Exercise Name quadraped TA facilitation and opp arm then opp leg lifts Reps/Minutes 10 reps each 1 Other Exercise Name alfredo pose Reps/Minutes hodl 1-2 minutes Manual Therapy Treatment Soft Tissue Mobilization 3 Body Location MFR to the lumbar paraspinals in shilds pose following ultrasound Comments in alfredo pose position to open up the low back 1 Body Location left QL and sacral region decompression Mobilization Type Myofascial Release Body Position Prone PT-OP-R Modalities Start: 08/11/18 09:23 Freq: Status: Active Protocol: Document 08/24/18 12:15 [facility] (Rec: 08/25/18 08:41 [facility] [email or web address]) Ultrasound Therapy Treatment Lower Back Treatment Duration (minutes) 8 Patient Position Prone Coupling Medium Ultrasound Gel Applicator Size (cm2) 5 Mode Setting Continuous Duty Cycle 100% Intensity Setting (w/cm2) 1.5 Comments pt in alfredo pose with lumbar flexion for the traction PT-OP-T Assessment and Plan Start: 03/09/18 14:02 Freq: Status: Active Protocol: Document 08/24/18 12:15 [facility] (Rec: 08/25/18 08:41 [facility] [email or web address]) Physical Therapy Assessment Assessment Summary Assessment Jackelyn is demonstrating improved ability to flex her lumbar spine. Decreased tissue tightness on the right now. Continuing to work on improving lumbar flexion and abdominal stabilization Physical Therapy Plan Frequency and Duration Frequency of Treatment 1x/Week Duration of Treatment 8 Plan of Care Start Date 06/29/18 Plan of Care End Date 09/04/18 Therapeutic Interventions Therapeutic Interventions Home Exercise Program Manual Therapy Neuromuscular Re-education Self-Care/Home Management Soft Tissue Mobilization Therapeutic Exercises Next Visit Focus/Plan Next Note Type Treatment Note Next Visit Plan alfredo pose with back in flexion for Ultrasound and manual work, continue to progress core stabilization
--- NOTE | 2018-09-01 15:48 | PT.OTN ---
Current Diagnoses Pelvic and perineal pain (08/24/18) Physical Therapy Treatment Note PT-OP-A Visit Information Start: 03/09/18 14:02 Freq: Status: Active Protocol: Document 08/24/18 12:15 [facility] (Rec: 08/25/18 08:41 [facility] [email or web address]) Out-Patient Physical Therapy Visit Information Visit Information Visit Type Treatment Note Visit Start Time 12:15 Visit Stop Time 13:00 Total Visit Minutes 45 Visit Number 14 Number of ROTATING EQUIPMENT SPECIALIST Visits 0 PT-OP-B Current Condition Start: 03/09/18 14:02 Freq: Status: Active Protocol: Document 03/09/18 13:00 [facility] (Rec: 03/10/18 11:09 [facility] [email or web address]) Current Condition History of Current Condition Onset Date October 2017 Current Complaints LBP, SI pain L, urinary incontinence, weakness, dysparunia History of Current Condition Jackelyn is a 27 year old female who is 4 months after a c section delivery with her second child . She was seen during her for complaints of left sided sciatica and SI pain. She is continuing to have these symptoms but is also noting urinary incontinence and pelvic pain with intercourse. Treatment Goals Patient/Caregiver Goals to improve strength, decrease pain, improve function and eliminate urinary incontinence Current Functional Impairments (Reported) Functional Limitations- Recreation/ limited with exercise due to Hobbies LBP and SI pain Functional Limitations- Other urinary incontinence and pelvic pain with intercourse PT-OP-C Subjective Start: 03/09/18 14:02 Freq: Status: Active Protocol: Document 08/24/18 12:15 [facility] (Rec: 08/25/18 08:41 [facility] [email or web address]) OP-PT Subjective Patient Comments Patient Comments Jackelyn notes she is able to feel a little flexion now in her spine. She is still sore but feeling more movement PT-OP-F Manual Assessment Start: 03/09/18 14:02 Freq: Status: Active Protocol: Document 03/09/18 13:00 [facility] (Rec: 03/10/18 11:09 [facility] [email or web address]) Manual Assessments Soft Tissue Assessment Soft Tissue Mobility Assessment tightness in the lumbar paraspinals + kenyetta test B Joint Mobility Assessment Joint Mobility Assessment + tests for SI instability including + april test for the SI unlocking B and + ASLR test elevated left pelvis exaggerated lumbar lordosis PT-OP-I Pelvic Floor Start: 03/09/18 14:02 Freq: Status: Active Protocol: Document 03/09/18 13:00 [facility] (Rec: 03/10/18 11:09 [facility] [email or web address]) Pelvic Floor Assessment Urine Pelvic Floor Surgery No Urinary Symptoms Urge Sensation Falling Out Feeling/Heavy Leakage Cause Sneeze Urge Other Leakage Causes sit-stand can also cause leakage Leaks Per Day constant leakage Voiding Frequency 10 times plus Nocturia 3 times per night Urine Pad Type Maxi Pad Pelvic Clock Pelvic Clock 12-3 Atrophy Pelvic Clock 3-6 Guarding Hypertonic Tightness Pelvic Clock 6-9 Tightness Pelvic Clock 9-12 Atrophy Pelvic Clock Other muscle guarding and spasm of the left greater than right illiococcygeus musculature and tightness in the coccygeus SEMG (uV) Baseline 20 Recruitment Pattern Poor/Slow Relaxation Poor/Slow Holding Poor/Slow Stability of Hold Poor/Slow SEMG Stability of Rest Poor/Slow Contraction Ability Manual Muscle Testing Left 1 Manual Muscle Testing Right 2 Manual Muscle Testing Anterior 3 Manual Muscle Testing Posterior 3 Muscle Endurance (Seconds) 3 Comments Pelvic Floor Comments elevated tone on EMG biofeedback at 20 uv initially , this tone only went slightly down with trial of contract relax. I started Jackelyn with stretching exercises for her pelvic floor and lateral hip rotation stretngthening as a way to gently recruit the pelvic floor without causing increased guarding. PT-OP-K Range of Motion Start: 03/09/18 14:02 Freq: Status: Active Protocol: Document 03/09/18 13:00 [facility] (Rec: 03/10/18 11:09 [facility] [email or web address]) Lumbar Spine Range of Motion Lumbar Spine Active Testing Position Standing Flexion 50 Lateral Flexion Left 10 Lateral Flexion Right 15 ROM Limitations Soft Tissue Tightness Comments exaggerated lumbar lordosis in the lumbar spine limits the amout of lumbar spine flexion Hip Goniometric Range of Motion Hip ROM Limitations Hip ROM Limitations Soft Tissue Tightness Comments iliopsoas tightness left greater than right + kenyetta test B PT-OP-Q Treatments Start: 03/09/18 14:02 Freq: Status: Active Protocol: Document 08/24/18 12:15 [facility] (Rec: 08/25/18 08:41 [facility] [email or web address]) Therapeutic Exercises Supine Exercises 13 Supine Exercise Name TA with marches and single knee to chest 12 Supine Exercise Name pilates 100 11 Supine Exercise Name crunches with ball squeeze Reps/Minutes 2x10 3 Supine Exercise Name iliopoas stretch in kenyetta test position Other Exercises 6 Other Exercise Name seated lumbar flexion 5 Other Exercise Name standing low back stretch into flexion holding onto the cable pole 4 Other Exercise Name cat cow Reps/Minutes x 10 reps 2 Other Exercise Name quadraped TA facilitation and opp arm then opp leg lifts Reps/Minutes 10 reps each 1 Other Exercise Name alfredo pose Reps/Minutes hodl 1-2 minutes Manual Therapy Treatment Soft Tissue Mobilization 3 Body Location MFR to the lumbar paraspinals in shilds pose following ultrasound Comments in alfredo pose position to open up the low back 1 Body Location left QL and sacral region decompression Mobilization Type Myofascial Release Body Position Prone PT-OP-R Modalities Start: 08/11/18 09:23 Freq: Status: Active Protocol: Document 08/24/18 12:15 [facility] (Rec: 08/25/18 08:41 [facility] [email or web address]) Ultrasound Therapy Treatment Lower Back Treatment Duration (minutes) 8 Patient Position Prone Coupling Medium Ultrasound Gel Applicator Size (cm2) 5 Mode Setting Continuous Duty Cycle 100% Intensity Setting (w/cm2) 1.5 Comments pt in alfredo pose with lumbar flexion for the traction PT-OP-T Assessment and Plan Start: 03/09/18 14:02 Freq: Status: Active Protocol: Document 08/24/18 12:15 [facility] (Rec: 08/25/18 08:41 [facility] [email or web address]) Physical Therapy Assessment Assessment Summary Assessment Jackelyn is demonstrating improved ability to flex her lumbar spine. Decreased tissue tightness on the right now. Continuing to work on improving lumbar flexion and abdominal stabilization Physical Therapy Plan Frequency and Duration Frequency of Treatment 1x/Week Duration of Treatment 8 Plan of Care Start Date 06/29/18 Plan of Care End Date 09/04/18 Therapeutic Interventions Therapeutic Interventions Home Exercise Program Manual Therapy Neuromuscular Re-education Self-Care/Home Management Soft Tissue Mobilization Therapeutic Exercises Next Visit Focus/Plan Next Note Type Treatment Note Next Visit Plan alfredo pose with back in flexion for Ultrasound and manual work, continue to progress core stabilization
--- NOTE | 2018-09-13 08:53 | PT.OTN ---
Current Diagnoses Pelvic and perineal pain (09/07/18) Physical Therapy Treatment Note PT-OP-A Visit Information Start: 03/09/18 14:02 Freq: Status: Active Protocol: Document 09/07/18 12:15 [facility] (Rec: 09/13/18 08:53 [facility] [email or web address]) Out-Patient Physical Therapy Visit Information Visit Information Visit Type Progress Note Visit Start Time 12:15 Visit Stop Time 13:00 Total Visit Minutes 45 Visit Number 15 Number of TRAVEL ATTENDANTS Visits 0 PT-OP-B Current Condition Start: 03/09/18 14:02 Freq: Status: Active Protocol: Document 03/09/18 13:00 [facility] (Rec: 03/10/18 11:09 [facility] [email or web address]) Current Condition History of Current Condition Onset Date October 2017 Current Complaints LBP, SI pain L, urinary incontinence, weakness, dysparunia History of Current Condition Jackelyn is a 27 year old female who is 4 months after a c section delivery with her second child . She was seen during her for complaints of left sided sciatica and SI pain. She is continuing to have these symptoms but is also noting urinary incontinence and pelvic pain with intercourse. Treatment Goals Patient/Caregiver Goals to improve strength, decrease pain, improve function and eliminate urinary incontinence Current Functional Impairments (Reported) Functional Limitations- Recreation/ limited with exercise due to Hobbies LBP and SI pain Functional Limitations- Other urinary incontinence and pelvic pain with intercourse PT-OP-C Subjective Start: 03/09/18 14:02 Freq: Status: Active Protocol: Document 09/07/18 12:15 [facility] (Rec: 09/13/18 08:53 [facility] [email or web address]) OP-PT Subjective Patient Comments Patient Comments Jackelyn notes she is frustrated as she is doing all her exercises and still noting the pain in her low back. She is able to feel a small amount of stretch now into flexion but it is limited PT-OP-F Manual Assessment Start: 03/09/18 14:02 Freq: Status: Active Protocol: Document 03/09/18 13:00 [facility] (Rec: 03/10/18 11:09 [facility] [email or web address]) Manual Assessments Soft Tissue Assessment Soft Tissue Mobility Assessment tightness in the lumbar paraspinals + kenyetta test B Joint Mobility Assessment Joint Mobility Assessment + tests for SI instability including + april test for the SI unlocking B and + ASLR test elevated left pelvis exaggerated lumbar lordosis PT-OP-I Pelvic Floor Start: 03/09/18 14:02 Freq: Status: Active Protocol: Document 03/09/18 13:00 [facility] (Rec: 03/10/18 11:09 [facility] [email or web address]) Pelvic Floor Assessment Urine Pelvic Floor Surgery No Urinary Symptoms Urge Sensation Falling Out Feeling/Heavy Leakage Cause Sneeze Urge Other Leakage Causes sit-stand can also cause leakage Leaks Per Day constant leakage Voiding Frequency 10 times plus Nocturia 3 times per night Urine Pad Type Maxi Pad Pelvic Clock Pelvic Clock 12-3 Atrophy Pelvic Clock 3-6 Guarding Hypertonic Tightness Pelvic Clock 6-9 Tightness Pelvic Clock 9-12 Atrophy Pelvic Clock Other muscle guarding and spasm of the left greater than right illiococcygeus musculature and tightness in the coccygeus SEMG (uV) Baseline 20 Recruitment Pattern Poor/Slow Relaxation Poor/Slow Holding Poor/Slow Stability of Hold Poor/Slow SEMG Stability of Rest Poor/Slow Contraction Ability Manual Muscle Testing Left 1 Manual Muscle Testing Right 2 Manual Muscle Testing Anterior 3 Manual Muscle Testing Posterior 3 Muscle Endurance (Seconds) 3 Comments Pelvic Floor Comments elevated tone on EMG biofeedback at 20 uv initially , this tone only went slightly down with trial of contract relax. I started Jackelyn with stretching exercises for her pelvic floor and lateral hip rotation stretngthening as a way to gently recruit the pelvic floor without causing increased guarding. PT-OP-K Range of Motion Start: 03/09/18 14:02 Freq: Status: Active Protocol: Document 03/09/18 13:00 [facility] (Rec: 03/10/18 11:09 [facility] [email or web address]) Lumbar Spine Range of Motion Lumbar Spine Active Testing Position Standing Flexion 50 Lateral Flexion Left 10 Lateral Flexion Right 15 ROM Limitations Soft Tissue Tightness Comments exaggerated lumbar lordosis in the lumbar spine limits the amout of lumbar spine flexion Hip Goniometric Range of Motion Hip ROM Limitations Hip ROM Limitations Soft Tissue Tightness Comments iliopsoas tightness left greater than right + kenyetta test B PT-OP-M Strength Start: 03/09/18 14:02 Freq: Status: Active Protocol: Document 09/07/18 12:15 [facility] (Rec: 09/13/18 08:53 [facility] [email or web address]) Trunk Strength Trunk Manual Muscle Testing Core Stabilization demonstrating improved core activation, difficult to use the outer abdominal wall to flex her trunk as she tends to stay in extension in her lower lumbar spine PT-OP-Q Treatments Start: 03/09/18 14:02 Freq: Status: Active Protocol: Document 09/07/18 12:15 [facility] (Rec: 09/13/18 08:53 [facility] [email or web address]) Therapeutic Exercises Sitting Exercises 1 Sitting Exercise Name seated lumbar segmental flexion Other Exercises 5 Other Exercise Name standing low back stretch into flexion holding onto the cable pole 4 Other Exercise Name cat cow Reps/Minutes x 10 reps 2 Other Exercise Name quadraped TA facilitation and opp arm then opp leg lifts Reps/Minutes 10 reps each 1 Other Exercise Name alfredo pose Reps/Minutes hodl 1-2 minutes Manual Therapy Treatment Soft Tissue Mobilization 3 Body Location MFR to the lumbar paraspinals in shilds pose following ultrasound Comments in alfredo pose position to open up the low back 1 Body Location left QL and sacral region decompression Mobilization Type Myofascial Release Body Position Prone Manual Techniques 2 Type piriformis stretch in prone PT-OP-R Modalities Start: 08/11/18 09:23 Freq: Status: Active Protocol: Document 08/24/18 12:15 [facility] (Rec: 08/25/18 08:41 [facility] [email or web address]) Ultrasound Therapy Treatment Lower Back Treatment Duration (minutes) 8 Patient Position Prone Coupling Medium Ultrasound Gel Applicator Size (cm2) 5 Mode Setting Continuous Duty Cycle 100% Intensity Setting (w/cm2) 1.5 Comments pt in alfredo pose with lumbar flexion for the traction PT-OP-T Assessment and Plan Start: 03/09/18 14:02 Freq: Status: Active Protocol: Document 09/07/18 12:15 [facility] (Rec: 09/13/18 08:53 [facility] [email or web address]) Physical Therapy Assessment Assessment Summary Assessment Nakita Hayden is still experiencing pain in her lumbar spine. She is demonstrating some improvements in lumbar segmental flexion however her pain levels have remained the same. She may benefit from further work up on her lumbar spine with further diagnostic testing Physical Therapy Plan Frequency and Duration Frequency of Treatment 1x/Week Duration of Treatment 8 Plan of Care Start Date 09/07/18 Plan of Care End Date 10/08/18 Therapeutic Interventions Therapeutic Interventions Home Exercise Program Manual Therapy Neuromuscular Re-education Self-Care/Home Management Soft Tissue Mobilization Therapeutic Exercises Next Visit Focus/Plan Next Note Type Treatment Note Next Visit Plan alfredo pose with back in flexion for Ultrasound and manual work, continue to progress core stabilization and flexion based stretches and strenghtening
--- NOTE | 2018-09-13 08:54 | PT.OPPOC ---
Current Diagnoses Pelvic and perineal pain (09/07/18) Provider Visit Care Team Role Provider Type Daisy Lynn MD Attending Provider Non-Staff Primary Care Provider Specialty: TRANSMISSION SPECIALIST Address: [address] [place] [address], [id number] Email: Plan Of Care PT-OP-T Assessment and Plan Start: 03/09/18 14:02 Freq: Status: Active Protocol: Document 09/07/18 12:15 [facility] (Rec: 09/13/18 08:53 [facility] [email or web address]) Physical Therapy Assessment Assessment Summary Assessment Nakita Hayden is still experiencing pain in her lumbar spine. She is demonstrating some improvements in lumbar segmental flexion however her pain levels have remained the same. She may benefit from further work up on her lumbar spine with further diagnostic testing Physical Therapy Plan Frequency and Duration Frequency of Treatment 1x/Week Duration of Treatment 8 Plan of Care Start Date 09/07/18 Plan of Care End Date 10/08/18 Therapeutic Interventions Therapeutic Interventions Home Exercise Program Manual Therapy Neuromuscular Re-education Self-Care/Home Management Soft Tissue Mobilization Therapeutic Exercises Next Visit Focus/Plan Next Note Type Treatment Note Next Visit Plan alfredo pose with back in flexion for Ultrasound and manual work, continue to progress core stabilization and flexion based stretches and strenghtening Plan of Care Dates Plan of Care Start Date 09/07/18 Plan of Care End Date 10/08/18 Please Sign and Return: I have reviewed this Plan of Care and certify that the skilled therapy services above are required to meet the patient?s needs. Physician Signature Date Printed Name and Credentials Clinical Instructor Signature Printed Name and Credentials
--- NOTE | 2018-09-15 12:50 | PT.OTN ---
Current Diagnoses Pelvic and perineal pain (09/14/18) Physical Therapy Treatment Note PT-OP-A Visit Information Start: 03/09/18 14:02 Freq: Status: Active Protocol: Document 09/14/18 12:42 [facility] (Rec: 09/15/18 12:49 [facility] [email or web address]) Out-Patient Physical Therapy Visit Information Visit Information Visit Type Treatment Note Visit Start Time 12:15 Visit Stop Time 13:00 Total Visit Minutes 45 Visit Number 16 Number of DIRECTOR OCCUPATIONAL Visits 0 PT-OP-B Current Condition Start: 03/09/18 14:02 Freq: Status: Active Protocol: Document 03/09/18 13:00 [facility] (Rec: 03/10/18 11:09 [facility] [email or web address]) Current Condition History of Current Condition Onset Date October 2017 Current Complaints LBP, SI pain L, urinary incontinence, weakness, dysparunia History of Current Condition Jackelyn is a 27 year old female who is 4 months after a c section delivery with her second child . She was seen during her for complaints of left sided sciatica and SI pain. She is continuing to have these symptoms but is also noting urinary incontinence and pelvic pain with intercourse. Treatment Goals Patient/Caregiver Goals to improve strength, decrease pain, improve function and eliminate urinary incontinence Current Functional Impairments (Reported) Functional Limitations- Recreation/ limited with exercise due to Hobbies LBP and SI pain Functional Limitations- Other urinary incontinence and pelvic pain with intercourse PT-OP-C Subjective Start: 03/09/18 14:02 Freq: Status: Active Protocol: Document 09/14/18 12:42 [facility] (Rec: 09/15/18 12:49 [facility] [email or web address]) OP-PT Subjective Patient Comments Patient Comments Jackelyn reports today her back is the worst it has been. She feels very compressed PT-OP-F Manual Assessment Start: 03/09/18 14:02 Freq: Status: Active Protocol: Document 03/09/18 13:00 [facility] (Rec: 03/10/18 11:09 [facility] [email or web address]) Manual Assessments Soft Tissue Assessment Soft Tissue Mobility Assessment tightness in the lumbar paraspinals + kenyetta test B Joint Mobility Assessment Joint Mobility Assessment + tests for SI instability including + april test for the SI unlocking B and + ASLR test elevated left pelvis exaggerated lumbar lordosis PT-OP-I Pelvic Floor Start: 03/09/18 14:02 Freq: Status: Active Protocol: Document 03/09/18 13:00 [facility] (Rec: 03/10/18 11:09 [facility] [email or web address]) Pelvic Floor Assessment Urine Pelvic Floor Surgery No Urinary Symptoms Urge Sensation Falling Out Feeling/Heavy Leakage Cause Sneeze Urge Other Leakage Causes sit-stand can also cause leakage Leaks Per Day constant leakage Voiding Frequency 10 times plus Nocturia 3 times per night Urine Pad Type Maxi Pad Pelvic Clock Pelvic Clock 12-3 Atrophy Pelvic Clock 3-6 Guarding Hypertonic Tightness Pelvic Clock 6-9 Tightness Pelvic Clock 9-12 Atrophy Pelvic Clock Other muscle guarding and spasm of the left greater than right illiococcygeus musculature and tightness in the coccygeus SEMG (uV) Baseline 20 Recruitment Pattern Poor/Slow Relaxation Poor/Slow Holding Poor/Slow Stability of Hold Poor/Slow SEMG Stability of Rest Poor/Slow Contraction Ability Manual Muscle Testing Left 1 Manual Muscle Testing Right 2 Manual Muscle Testing Anterior 3 Manual Muscle Testing Posterior 3 Muscle Endurance (Seconds) 3 Comments Pelvic Floor Comments elevated tone on EMG biofeedback at 20 uv initially , this tone only went slightly down with trial of contract relax. I started Jackelyn with stretching exercises for her pelvic floor and lateral hip rotation stretngthening as a way to gently recruit the pelvic floor without causing increased guarding. PT-OP-K Range of Motion Start: 03/09/18 14:02 Freq: Status: Active Protocol: Document 03/09/18 13:00 [facility] (Rec: 03/10/18 11:09 [facility] [email or web address]) Lumbar Spine Range of Motion Lumbar Spine Active Testing Position Standing Flexion 50 Lateral Flexion Left 10 Lateral Flexion Right 15 ROM Limitations Soft Tissue Tightness Comments exaggerated lumbar lordosis in the lumbar spine limits the amout of lumbar spine flexion Hip Goniometric Range of Motion Hip ROM Limitations Hip ROM Limitations Soft Tissue Tightness Comments iliopsoas tightness left greater than right + kenyetta test B PT-OP-M Strength Start: 03/09/18 14:02 Freq: Status: Active Protocol: Document 09/07/18 12:15 [facility] (Rec: 09/13/18 08:53 [facility] [email or web address]) Trunk Strength Trunk Manual Muscle Testing Core Stabilization demonstrating improved core activation, difficult to use the outer abdominal wall to flex her trunk as she tends to stay in extension in her lower lumbar spine PT-OP-Q Treatments Start: 03/09/18 14:02 Freq: Status: Active Protocol: Document 09/14/18 12:15 [facility] (Rec: 09/15/18 12:50 [facility] [email or web address]) Manual Therapy Treatment Soft Tissue Mobilization 5 Body Location piriformis release bilaterally 3 Body Location MFR to the lumbar paraspinals in shilds pose following ultrasound Comments in alfredo pose position to open up the low back 1 Body Location left QL and sacral region decompression Mobilization Type Myofascial Release Body Position Prone PT-OP-R Modalities Start: 08/11/18 09:23 Freq: Status: Active Protocol: Document 09/14/18 12:42 [facility] (Rec: 09/15/18 12:49 [facility] [email or web address]) Spinal Traction Traction Treatment Lumbar Method Mechanical Patient Position Hooklying Force Applied (Pounds) 60 Duration of Treatment (Minutes) 12 Heating Pad Applied Yes Traction Treatment Comment pt felt more opened up following treatment PT-OP-T Assessment and Plan Start: 03/09/18 14:02 Freq: Status: Active Protocol: Document 09/14/18 12:42 [facility] (Rec: 09/15/18 12:49 [facility] [email or web address]) Physical Therapy Assessment Assessment Summary Assessment trial of lumbar traction today as Jackelyn reported feeling symptoms of increased compression. She does have a appointment with her MD this next week and she may benefit from further diagnostic testing as her pain remains Physical Therapy Plan Frequency and Duration Frequency of Treatment 1x/Week Duration of Treatment 8 Plan of Care Start Date 09/07/18 Plan of Care End Date 10/08/18 Therapeutic Interventions Therapeutic Interventions Home Exercise Program Manual Therapy Neuromuscular Re-education Self-Care/Home Management Soft Tissue Mobilization Therapeutic Exercises Next Visit Focus/Plan Next Note Type Treatment Note Next Visit Plan reassess how traction felt on her spine and do again with higher poundage if it was helpful
--- NOTE | 2018-09-21 15:00 | PT.OTN ---
Current Diagnoses Pelvic and perineal pain (09/21/18) Physical Therapy Treatment Note PT-OP-A Visit Information Start: 03/09/18 14:02 Freq: Status: Active Protocol: Document 09/21/18 14:53 [facility] (Rec: 09/21/18 15:00 [facility] [email or web address]) Out-Patient Physical Therapy Visit Information Visit Information Visit Type Treatment Note Visit Start Time 13:00 Visit Stop Time 13:50 Total Visit Minutes 50 Visit Number 17 Number of FAMILY LIFE COUNSELOR Visits 0 PT-OP-B Current Condition Start: 03/09/18 14:02 Freq: Status: Active Protocol: Document 03/09/18 13:00 [facility] (Rec: 03/10/18 11:09 [facility] [email or web address]) Current Condition History of Current Condition Onset Date October 2017 Current Complaints LBP, SI pain L, urinary incontinence, weakness, dysparunia History of Current Condition Jackelyn is a 27 year old female who is 4 months after a c section delivery with her second child . She was seen during her for complaints of left sided sciatica and SI pain. She is continuing to have these symptoms but is also noting urinary incontinence and pelvic pain with intercourse. 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 She also reports the traction gave her tempory relief into the evening following last visit PT-OP-F Manual Assessment Start: 03/09/18 14:02 Freq: Status: Active Protocol: Document 03/09/18 13:00 [facility] (Rec: 03/10/18 11:09 [facility] [email or web address]) Manual Assessments Soft Tissue Assessment Soft Tissue Mobility Assessment tightness in the lumbar paraspinals + kenyetta test B Joint Mobility Assessment Joint Mobility Assessment + tests for SI instability including + april test for the SI unlocking B and + ASLR test elevated left pelvis exaggerated lumbar lordosis PT-OP-I Pelvic Floor Start: 03/09/18 14:02 Freq: Status: Active Protocol: Document 03/09/18 13:00 [facility] (Rec: 03/10/18 11:09 [facility] [email or web address]) Pelvic Floor Assessment Urine Pelvic Floor Surgery No Urinary Symptoms Urge Sensation Falling Out Feeling/Heavy Leakage Cause Sneeze Urge Other Leakage Causes sit-stand can also cause leakage Leaks Per Day constant leakage Voiding Frequency 10 times plus Nocturia 3 times per night Urine Pad Type Maxi Pad Pelvic Clock Pelvic Clock 12-3 Atrophy Pelvic Clock 3-6 Guarding Hypertonic Tightness Pelvic Clock 6-9 Tightness Pelvic Clock 9-12 Atrophy Pelvic Clock Other muscle guarding and spasm of the left greater than right illiococcygeus musculature and tightness in the coccygeus SEMG (uV) Baseline 20 Recruitment Pattern Poor/Slow Relaxation Poor/Slow Holding Poor/Slow Stability of Hold Poor/Slow SEMG Stability of Rest Poor/Slow Contraction Ability Manual Muscle Testing Left 1 Manual Muscle Testing Right 2 Manual Muscle Testing Anterior 3 Manual Muscle Testing Posterior 3 Muscle Endurance (Seconds) 3 Comments Pelvic Floor Comments elevated tone on EMG biofeedback at 20 uv initially , this tone only went slightly down with trial of contract relax. I started Jackelyn with stretching exercises for her pelvic floor and lateral hip rotation stretngthening as a way to gently recruit the pelvic floor without causing increased guarding. PT-OP-K Range of Motion Start: 03/09/18 14:02 Freq: Status: Active Protocol: Document 03/09/18 13:00 [facility] (Rec: 03/10/18 11:09 [facility] [email or web address]) Lumbar Spine Range of Motion Lumbar Spine Active Testing Position Standing Flexion 50 Lateral Flexion Left 10 Lateral Flexion Right 15 ROM Limitations Soft Tissue Tightness Comments exaggerated lumbar lordosis in the lumbar spine limits the amout of lumbar spine flexion Hip Goniometric Range of Motion Hip ROM Limitations Hip ROM Limitations Soft Tissue Tightness Comments iliopsoas tightness left greater than right + kenyetta test B PT-OP-M Strength Start: 03/09/18 14:02 Freq: Status: Active Protocol: Document 09/07/18 12:15 [facility] (Rec: 09/13/18 08:53 [facility] [email or web address]) Trunk Strength Trunk Manual Muscle Testing Core Stabilization demonstrating improved core activation, difficult to use the outer abdominal wall to flex her trunk as she tends to stay in extension in her lower lumbar spine PT-OP-Q Treatments Start: 03/09/18 14:02 Freq: Status: Active Protocol: Document 09/21/18 14:53 [facility] (Rec: 09/21/18 15:00 [facility] [email or web address]) Manual Therapy Treatment Soft Tissue Mobilization 5 Body Location piriformis release bilaterally 3 Body Location MFR to the lumbar paraspinals in shilds pose following ultrasound 1 Body Location left QL and sacral region decompression Mobilization Type Myofascial Release Body Position Prone Joint Mobilizations 1 Joint MET for sacral mobilization into counternutation PT-OP-R Modalities Start: 08/11/18 09:23 Freq: Status: Active Protocol: Document 09/21/18 14:53 [facility] (Rec: 09/21/18 15:00 [facility] [email or web address]) Spinal Traction Traction Treatment Lumbar Method Mechanical Patient Position Hooklying Force Applied (Pounds) 80 Duration of Treatment (Minutes) 12 Heating Pad Applied Yes Traction Treatment Comment pt felt more opened up following treatment Ultrasound Therapy Treatment Lower Back Treatment Duration (minutes) 8 Patient Position Prone Coupling Medium Ultrasound Gel Applicator Size (cm2) 5 Mode Setting Continuous Duty Cycle 100% Intensity Setting (w/cm2) 1.5 Comments pt in alfredo pose with lumbar flexion for the traction PT-OP-T Assessment and Plan Start: 03/09/18 14:02 Freq: Status: Active Protocol: Document 09/21/18 14:53 [facility] (Rec: 09/21/18 15:00 [facility] [email or web address]) Physical Therapy Assessment Assessment Summary Assessment I increased the lumbar traction # to 80 today as Jackelyn seemed to respond well to this. Continue to work in flexion based stretches and stabilization as she is able to. She may benefit from a home rental of lumbar traction Physical Therapy Plan Frequency and Duration Frequency of Treatment 1x/Week Duration of Treatment 8 Plan of Care Start Date 09/07/18 Plan of Care End Date 10/08/18 Therapeutic Interventions Therapeutic Interventions Home Exercise Program Manual Therapy Neuromuscular Re-education Self-Care/Home Management Soft Tissue Mobilization Therapeutic Exercises Next Visit Focus/Plan Next Note Type Treatment Note Next Visit Plan Resume abdominal stabilization and flexion based stretches if Jackelyn is able to.
--- NOTE | 2018-10-24 09:01 | PT.OTN ---
Current Diagnoses Pelvic and perineal pain (10/19/18) Physical Therapy Treatment Note PT-OP-A Visit Information Start: 03/09/18 14:02 Freq: Status: Active Protocol: Document 10/19/18 15:57 [facility] (Rec: 10/24/18 08:58 [facility] [email or web address]) Out-Patient Physical Therapy Visit Information Visit Information Visit Type Progress Note Visit Start Time 10:45 Visit Stop Time 11:30 Total Visit Minutes 45 Visit Number 18 Number of CORN CROP SUPERVISOR Visits 0 Evaluation Information Evaluation Date 03/09/18 PT-OP-B Current Condition Start: 03/09/18 14:02 Freq: Status: Active Protocol: Document 03/09/18 13:00 [facility] (Rec: 03/10/18 11:09 [facility] [email or web address]) Current Condition History of Current Condition Onset Date October 2017 Current Complaints LBP, SI pain L, urinary incontinence, weakness, dysparunia History of Current Condition Jackelyn is a 27 year old female who is 4 months after a c section delivery with her second child . She was seen during her for complaints of left sided sciatica and SI pain. She is continuing to have these symptoms but is also noting urinary incontinence and pelvic pain with intercourse. Treatment Goals Patient/Caregiver Goals to improve strength, decrease pain, improve function and eliminate urinary incontinence Current Functional Impairments (Reported) Functional Limitations- Recreation/ limited with exercise due to Hobbies LBP and SI pain Functional Limitations- Other urinary incontinence and pelvic pain with intercourse PT-OP-C Subjective Start: 03/09/18 14:02 Freq: Status: Active Protocol: Document 10/19/18 10:45 [facility] (Rec: 10/24/18 08:56 [facility] [email or web address]) OP-PT Subjective Patient Comments Patient Comments jackelyn reports that with the pessary she is leaking less. She reports she was just at chiropractic to adjust her lower back PT-OP-F Manual Assessment Start: 03/09/18 14:02 Freq: Status: Active Protocol: Document 03/09/18 13:00 [facility] (Rec: 03/10/18 11:09 [facility] [email or web address]) Manual Assessments Soft Tissue Assessment Soft Tissue Mobility Assessment tightness in the lumbar paraspinals + kenyetta test B Joint Mobility Assessment Joint Mobility Assessment + tests for SI instability including + april test for the SI unlocking B and + ASLR test elevated left pelvis exaggerated lumbar lordosis PT-OP-I Pelvic Floor Start: 03/09/18 14:02 Freq: Status: Active Protocol: Document 03/09/18 13:00 [facility] (Rec: 03/10/18 11:09 [facility] [email or web address]) Pelvic Floor Assessment Urine Pelvic Floor Surgery No Urinary Symptoms Urge Sensation Falling Out Feeling/Heavy Leakage Cause Sneeze Urge Other Leakage Causes sit-stand can also cause leakage Leaks Per Day constant leakage Voiding Frequency 10 times plus Nocturia 3 times per night Urine Pad Type Maxi Pad Pelvic Clock Pelvic Clock 12-3 Atrophy Pelvic Clock 3-6 Guarding Hypertonic Tightness Pelvic Clock 6-9 Tightness Pelvic Clock 9-12 Atrophy Pelvic Clock Other muscle guarding and spasm of the left greater than right illiococcygeus musculature and tightness in the coccygeus SEMG (uV) Baseline 20 Recruitment Pattern Poor/Slow Relaxation Poor/Slow Holding Poor/Slow Stability of Hold Poor/Slow SEMG Stability of Rest Poor/Slow Contraction Ability Manual Muscle Testing Left 1 Manual Muscle Testing Right 2 Manual Muscle Testing Anterior 3 Manual Muscle Testing Posterior 3 Muscle Endurance (Seconds) 3 Comments Pelvic Floor Comments elevated tone on EMG biofeedback at 20 uv initially , this tone only went slightly down with trial of contract relax. I started Jackelyn with stretching exercises for her pelvic floor and lateral hip rotation stretngthening as a way to gently recruit the pelvic floor without causing increased guarding. PT-OP-K Range of Motion Start: 03/09/18 14:02 Freq: Status: Active Protocol: Document 03/09/18 13:00 [facility] (Rec: 03/10/18 11:09 [facility] [email or web address]) Lumbar Spine Range of Motion Lumbar Spine Active Testing Position Standing Flexion 50 Lateral Flexion Left 10 Lateral Flexion Right 15 ROM Limitations Soft Tissue Tightness Comments exaggerated lumbar lordosis in the lumbar spine limits the amout of lumbar spine flexion Hip Goniometric Range of Motion Hip ROM Limitations Hip ROM Limitations Soft Tissue Tightness Comments iliopsoas tightness left greater than right + kenyteta test B PT-OP-M Strength Start: 03/09/18 14:02 Freq: Status: Active Protocol: Document 09/07/18 12:15 [facility] (Rec: 09/13/18 08:53 [facility] [email or web address]) Trunk Strength Trunk Manual Muscle Testing Core Stabilization demonstrating improved core activation, difficult to use the outer abdominal wall to flex her trunk as she tends to stay in extension in her lower lumbar spine PT-OP-Q Treatments Start: 03/09/18 14:02 Freq: Status: Active Protocol: Document 10/19/18 10:45 [facility] (Rec: 10/24/18 08:56 [facility] [email or web address]) Therapeutic Exercises Sitting Exercises 1 Sitting Exercise Name seated lumbar segmental flexion Other Exercises 4 Other Exercise Name cat cow Reps/Minutes x 10 reps 1 Other Exercise Name alfredo pose Reps/Minutes hodl 1-2 minutes Manual Therapy Treatment Soft Tissue Mobilization 3 Body Location MFR to the lumbar paraspinals in shilds pose following ultrasound 2 Body Location left sidelying Comments MFR over the right quadratus lumborum PT-OP-R Modalities Start: 08/11/18 09:23 Freq: Status: Active Protocol: Document 09/21/18 14:53 [facility] (Rec: 09/21/18 15:00 [facility] [email or web address]) Spinal Traction Traction Treatment Lumbar Method Mechanical Patient Position Hooklying Force Applied (Pounds) 80 Duration of Treatment (Minutes) 12 Heating Pad Applied Yes Traction Treatment Comment pt felt more opened up following treatment Ultrasound Therapy Treatment Lower Back Treatment Duration (minutes) 8 Patient Position Prone Coupling Medium Ultrasound Gel Applicator Size (cm2) 5 Mode Setting Continuous Duty Cycle 100% Intensity Setting (w/cm2) 1.5 Comments pt in alfredo pose with lumbar flexion for the traction PT-OP-T Assessment and Plan Start: 03/09/18 14:02 Freq: Status: Active Protocol: Document 10/19/18 10:45 [facility] (Rec: 10/24/18 08:56 [facility] [email or web address]) Physical Therapy Assessment Assessment Summary Assessment Jackelyn has shown some improvements with lumbar flexion and decreased guarding of the paraspinals. This has been our biggest challange is to get her able to flex in her low lumbar spine. She tends to hold her self in an extended position with a anterior pelvic tilit. She did see a chiropractor just this am working on improved spinal alignment. I worked today on the elevated right pelvis and lumbar spine flexion stretches which were a little better today. We held off on traction today due to just seeing chiropractic. Jackelyn would benefit from continued PT and reassessing pelvic floor strength again next visit and continuing with abdominal stabilization. Physical Therapy Plan Frequency and Duration Frequency of Treatment 1x/Week Duration of Treatment 8 Plan of Care Start Date 10/08/18 Plan of Care End Date 12/03/18 Therapeutic Interventions Therapeutic Interventions Home Exercise Program Manual Therapy Neuromuscular Re-education Self-Care/Home Management Soft Tissue Mobilization Therapeutic Exercises Next Visit Focus/Plan Next Note Type Treatment Note Next Visit Plan reassess pelvic floor strength next visit, continue to focus on stabilization and lumbar flexion.
--- NOTE | 2018-10-24 09:01 | PT.OPPOC ---
Current Diagnoses Pelvic and perineal pain (10/19/18) Provider Visit Care Team Role Provider Type Daisy Lynn MD Attending Provider Non-Staff Primary Care Provider Specialty: CONSUMER AFFAIRS SPECIALIST Address: [address] [place] [address], [id number] Email: Plan Of Care PT-OP-T Assessment and Plan Start: 03/09/18 14:02 Freq: Status: Active Protocol: Document 10/19/18 10:45 [facility] (Rec: 10/24/18 08:56 [facility] [email or web address]) Physical Therapy Assessment Assessment Summary Assessment Jackelyn has shown some improvements with lumbar flexion and decreased guarding of the paraspinals. This has been our biggest challenge is to get her able to flex in her low lumbar spine. She tends to hold her self in an extended position with a anterior pelvic tilt. She did see a chiropractor just this am working on improved spinal alignment. I worked today on the elevated right pelvis and lumbar spine flexion stretches which were a little better today. We held off on traction today due to just seeing chiropractic. Jackelyn would benefit from continued PT and reassessing pelvic floor strength again next visit and continuing with abdominal stabilization. Physical Therapy Plan Frequency and Duration Frequency of Treatment 1x/Week Duration of Treatment 8 Plan of Care Start Date 10/08/18 Plan of Care End Date 12/03/18 Therapeutic Interventions Therapeutic Interventions Home Exercise Program Manual Therapy Neuromuscular Re-education Self-Care/Home Management Soft Tissue Mobilization Therapeutic Exercises Next Visit Focus/Plan Next Note Type Treatment Note Next Visit Plan reassess pelvic floor strength next visit, continue to focus on stabilization and lumbar flexion. Plan of Care Dates Plan of Care Start Date 10/08/18 Plan of Care End Date 12/03/18 Please Sign and Return: I have reviewed this Plan of Care and certify that the skilled therapy services above are required to meet the patient?s needs. Physician Signature Date Printed Name and Credentials Clinical Instructor Signature Printed Name and Credentials
--- NOTE | 2018-11-24 13:41 | PT.OTN ---
Current Diagnoses Pelvic and perineal pain (11/23/18) Physical Therapy Treatment Note PT-OP-A Visit Information Start: 03/09/18 14:02 Freq: Status: Active Protocol: Document 11/23/18 11:30 [facility] (Rec: 11/24/18 13:41 [facility] [email or web address]) Out-Patient Physical Therapy Visit Information Visit Information Visit Type Treatment Note Visit Start Time 11:30 Visit Stop Time 12:15 Total Visit Minutes 45 Visit Number 19 Number of DEAF INTERPRETER Visits 0 PT-OP-B Current Condition Start: 03/09/18 14:02 Freq: Status: Active Protocol: Document 03/09/18 13:00 [facility] (Rec: 03/10/18 11:09 [facility] [email or web address]) Current Condition History of Current Condition Onset Date October 2017 Current Complaints LBP, SI pain L, urinary incontinence, weakness, dysparunia History of Current Condition Jackelyn is a 27 year old female who is 4 months after a c section delivery with her second child . She was seen during her for complaints of left sided sciatica and SI pain. She is continuing to have these symptoms but is also noting urinary incontinence and pelvic pain with intercourse. Treatment Goals Patient/Caregiver Goals to improve strength, decrease pain, improve function and eliminate urinary incontinence Current Functional Impairments (Reported) Functional Limitations- Recreation/ limited with exercise due to Hobbies LBP and SI pain Functional Limitations- Other urinary incontinence and pelvic pain with intercourse PT-OP-C Subjective Start: 03/09/18 14:02 Freq: Status: Active Protocol: Document 11/23/18 11:30 [facility] (Rec: 11/24/18 13:41 [facility] [email or web address]) OP-PT Subjective Patient Comments Patient Comments pt reports she is still in a great deal of lowback pain. She is using the pessary but still notes pelvic pressure and is leaking. She would like to return to EMG biofeedback but does not have the electrode with her today. Traction does give relief PT-OP-F Manual Assessment Start: 03/09/18 14:02 Freq: Status: Active Protocol: Document 03/09/18 13:00 [facility] (Rec: 03/10/18 11:09 [facility] [email or web address]) Manual Assessments Soft Tissue Assessment Soft Tissue Mobility Assessment tightness in the lumbar paraspinals + kenyetta test B Joint Mobility Assessment Joint Mobility Assessment + tests for SI instability including + april test for the SI unlocking B and + ASLR test elevated left pelvis exaggerated lumbar lordosis PT-OP-I Pelvic Floor Start: 03/09/18 14:02 Freq: Status: Active Protocol: Document 03/09/18 13:00 [facility] (Rec: 03/10/18 11:09 [facility] [email or web address]) Pelvic Floor Assessment Urine Pelvic Floor Surgery No Urinary Symptoms Urge Sensation,Falling Out Feeling/Heavy Leakage Cause Sneeze,Urge Other Leakage Causes sit-stand can also cause leakage Leaks Per Day constant leakage Voiding Frequency 10 times plus Nocturia 3 times per night Urine Pad Type Maxi Pad Pelvic Clock Pelvic Clock 12-3 Atrophy Pelvic Clock 3-6 Guarding,Hypertonic,Tightness Pelvic Clock 6-9 Tightness Pelvic Clock 9-12 Atrophy Pelvic Clock Other muscle guarding and spasm of the left greater than right illiococcygeus musculature and tightness in the coccygeus SEMG (uV) Baseline 20 Recruitment Pattern Poor/Slow Relaxation Poor/Slow Holding Poor/Slow Stability of Hold Poor/Slow SEMG Stability of Rest Poor/Slow Contraction Ability Manual Muscle Testing Left 1 Manual Muscle Testing Right 2 Manual Muscle Testing Anterior 3 Manual Muscle Testing Posterior 3 Muscle Endurance (Seconds) 3 Comments Pelvic Floor Comments elevated tone on EMG biofeedback at 20 uv initially , this tone only went slightly down with trial of contract relax. I started Jackelyn with stretching exercises for her pelvic floor and lateral hip rotation stretngthening as a way to gently recruit the pelvic floor without causing increased guarding. PT-OP-K Range of Motion Start: 03/09/18 14:02 Freq: Status: Active Protocol: Document 03/09/18 13:00 [facility] (Rec: 03/10/18 11:09 [facility] [email or web address]) Lumbar Spine Range of Motion Lumbar Spine Active Testing Position Standing Flexion 50 Lateral Flexion Left 10 Lateral Flexion Right 15 ROM Limitations Soft Tissue Tightness Comments exaggerated lumbar lordosis in the lumbar spine limits the amout of lumbar spine flexion Hip Goniometric Range of Motion Hip ROM Limitations Hip ROM Limitations Soft Tissue Tightness Comments iliopsoas tightness left greater than right + kenyetta test B PT-OP-M Strength Start: 03/09/18 14:02 Freq: Status: Active Protocol: Document 09/07/18 12:15 [facility] (Rec: 09/13/18 08:53 [facility] [email or web address]) Trunk Strength Trunk Manual Muscle Testing Core Stabilization demonstrating improved core activation, difficult to use the outer abdominal wall to flex her trunk as she tends to stay in extension in her lower lumbar spine PT-OP-Q Treatments Start: 03/09/18 14:02 Freq: Status: Active Protocol: Document 11/23/18 11:30 [facility] (Rec: 11/24/18 13:41 [facility] [email or web address]) Manual Therapy Treatment Soft Tissue Mobilization 3 Body Location MFR to the lumbar paraspinals in shilds pose following ultrasound Comments prone over the ball for lumbar flexion during treatment Joint Mobilizations 1 Joint MET for sacral mobilization into counternutation PT-OP-R Modalities Start: 08/11/18 09:23 Freq: Status: Active Protocol: Document 11/23/18 13:41 [facility] (Rec: 11/24/18 13:41 [facility] [email or web address]) Spinal Traction Traction Treatment Lumbar Method Mechanical Patient Position Hooklying Force Applied (Pounds) 85 Duration of Treatment (Minutes) 12 Heating Pad Applied Yes Traction Treatment Comment pt felt more opened up following treatment PT-OP-T Assessment and Plan Start: 03/09/18 14:02 Freq: Status: Active Protocol: Document 11/23/18 11:30 [facility] (Rec: 11/24/18 13:41 [facility] [email or web address]) Physical Therapy Assessment Assessment Summary Assessment We will return to pelvic floor strengthening next visit as jackelyn did not have her electrode. She is still have a great amount of troubel with lumbar flexion Physical Therapy Plan Frequency and Duration Frequency of Treatment 1x/Week Duration of Treatment 8 Plan of Care Start Date 10/08/18 Plan of Care End Date 12/03/18 Therapeutic Interventions Therapeutic Interventions Home Exercise Program,Manual Therapy,Neuromuscular Re- education,Self-Care/Home Management,Soft Tissue Mobilization,Therapeutic Exercises Next Visit Focus/Plan Next Note Type Treatment Note Next Visit Plan reassess pelvic floor strength next visit, continue to focus on stabilization and lumbar flexion.
--- NOTE | 2018-11-30 14:16 | PT.OTN ---
Current Diagnoses Pelvic and perineal pain (11/30/18) Physical Therapy Treatment Note PT-OP-A Visit Information Start: 03/09/18 14:02 Freq: Status: Active Protocol: Document 11/30/18 11:34 [facility] (Rec: 11/30/18 12:19 [facility] [id number]) Out-Patient Physical Therapy Visit Information Visit Information Visit Type Treatment Note Visit Start Time 11:30 Visit Stop Time 12:15 Total Visit Minutes 45 Visit Number 20 Number of PEARL DIVER Visits 0 PT-OP-B Current Condition Start: 03/09/18 14:02 Freq: Status: Active Protocol: Document 03/09/18 13:00 [facility] (Rec: 03/10/18 11:09 [facility] [email or web address]) Current Condition History of Current Condition Onset Date October 2017 Current Complaints LBP, SI pain L, urinary incontinence, weakness, dysparunia History of Current Condition Jackelyn is a 27 year old female who is 4 months after a c section delivery with her second child . She was seen during her for complaints of left sided sciatica and SI pain. She is continuing to have these symptoms but is also noting urinary incontinence and pelvic pain with intercourse. Treatment Goals Patient/Caregiver Goals to improve strength, decrease pain, improve function and eliminate urinary incontinence Current Functional Impairments (Reported) Functional Limitations- Recreation/ limited with exercise due to Hobbies LBP and SI pain Functional Limitations- Other urinary incontinence and pelvic pain with intercourse PT-OP-C Subjective Start: 03/09/18 14:02 Freq: Status: Active Protocol: Document 11/30/18 11:34 [facility] (Rec: 11/30/18 12:19 [facility] [id number]) OP-PT Subjective Patient Comments Patient Comments pt reports she was really sore for a few days afterwards with the traction Patient Reported Progress Same PT-OP-F Manual Assessment Start: 03/09/18 14:02 Freq: Status: Active Protocol: Document 03/09/18 13:00 [facility] (Rec: 03/10/18 11:09 [facility] [email or web address]) Manual Assessments Soft Tissue Assessment Soft Tissue Mobility Assessment tightness in the lumbar paraspinals + kenyetta test B Joint Mobility Assessment Joint Mobility Assessment + tests for SI instability including + april test for the SI unlocking B and + ASLR test elevated left pelvis exaggerated lumbar lordosis PT-OP-I Pelvic Floor Start: 01/09/19 14:02 Freq: Status: Active Protocol: Document 03/09/18 13:00 [facility] (Rec: 03/10/18 11:09 [facility] [email or web address]) Pelvic Floor Assessment Urine Pelvic Floor Surgery No Urinary Symptoms Urge Sensation,Falling Out Feeling/Heavy Leakage Cause Sneeze,Urge Other Leakage Causes sit-stand can also cause leakage Leaks Per Day constant leakage Voiding Frequency 10 times plus Nocturia 3 times per night Urine Pad Type Maxi Pad Pelvic Clock Pelvic Clock 12-3 Atrophy Pelvic Clock 3-6 Guarding,Hypertonic,Tightness Pelvic Clock 6-9 Tightness Pelvic Clock 9-12 Atrophy Pelvic Clock Other muscle guarding and spasm of the left greater than right illiococcygeus musculature and tightness in the coccygeus SEMG (uV) Baseline 20 Recruitment Pattern Poor/Slow Relaxation Poor/Slow Holding Poor/Slow Stability of Hold Poor/Slow SEMG Stability of Rest Poor/Slow Contraction Ability Manual Muscle Testing Left 1 Manual Muscle Testing Right 2 Manual Muscle Testing Anterior 3 Manual Muscle Testing Posterior 3 Muscle Endurance (Seconds) 3 Comments Pelvic Floor Comments elevated tone on EMG biofeedback at 20 uv initially , this tone only went slightly down with trial of contract relax. I started Jackelyn with stretching exercises for her pelvic floor and lateral hip rotation stretngthening as a way to gently recruit the pelvic floor without causing increased guarding. PT-OP-K Range of Motion Start: 03/09/18 14:02 Freq: Status: Active Protocol: Document 03/09/18 13:00 [facility] (Rec: 03/10/18 11:09 [facility] [email or web address]) Lumbar Spine Range of Motion Lumbar Spine Active Testing Position Standing Flexion 50 Lateral Flexion Left 10 Lateral Flexion Right 15 ROM Limitations Soft Tissue Tightness Comments exaggerated lumbar lordosis in the lumbar spine limits the amout of lumbar spine flexion Hip Goniometric Range of Motion Hip ROM Limitations Hip ROM Limitations Soft Tissue Tightness Comments iliopsoas tightness left greater than right + kenyetta test B PT-OP-M Strength Start: 03/09/18 14:02 Freq: Status: Active Protocol: Document 09/07/18 12:15 [facility] (Rec: 09/13/18 08:53 [facility] [email or web address]) Trunk Strength Trunk Manual Muscle Testing Core Stabilization demonstrating improved core activation, difficult to use the outer abdominal wall to flex her trunk as she tends to stay in extension in her lower lumbar spine PT-OP-Q Treatments Start: 03/09/18 14:02 Freq: Status: Active Protocol: Document 11/30/18 11:34 [facility] (Rec: 11/30/18 12:19 [facility] [id number]) Therapeutic Exercises Supine Exercises 8 Supine Exercise Name iliopsoas stretch 7 Supine Exercise Name happy baby 6 Supine Exercise Name hamstring and piriformis stretch 5 Supine Exercise Name TA with marches and up up down down Reps/Minutes x 10 Comments level 1b 3 Supine Exercise Name roll outs 2 Supine Exercise Name ball squeeze 1 Supine Exercise Name pelvic floor long holds Reps/Minutes x 10 reps PT-OP-R Modalities Start: 08/11/18 09:23 Freq: Status: Active Protocol: Document 11/23/18 13:41 [facility] (Rec: 11/24/18 13:41 [facility] [email or web address]) Spinal Traction Traction Treatment Lumbar Method Mechanical Patient Position Hooklying Force Applied (Pounds) 85 Duration of Treatment (Minutes) 12 Heating Pad Applied Yes Traction Treatment Comment pt felt more opened up following treatment PT-OP-T Assessment and Plan Start: 03/09/18 14:02 Freq: Status: Active Protocol: Document 11/30/18 11:34 [facility] (Rec: 11/30/18 12:19 [facility] [id number]) Physical Therapy Assessment Assessment Summary Assessment resting tone on EMG biofeedback is 15 uv. With 10 second hold time average is 34 with max of 58 uv. Average rest is 21 uv so the pelvic floor is still very guarded. I reviewed and emphasized pelvic floor relaxation with stretches. WE also talked about the importance of having daily bowel movements as constipation will increase pelvic pain symptoms. I recommended trying a castor oil pack for home Physical Therapy Plan Frequency and Duration Frequency of Treatment 1x/Week Duration of Treatment 8 Plan of Care Start Date 10/08/18 Plan of Care End Date 12/03/18 Therapeutic Interventions Therapeutic Interventions Home Exercise Program,Manual Therapy,Neuromuscular Re- education,Self-Care/Home Management,Soft Tissue Mobilization,Therapeutic Exercises Next Visit Focus/Plan Next Note Type Treatment Note Next Visit Plan Begin with pelvic floor exercises next visit but also include lumbar traction
--- NOTE | 2018-12-12 16:35 | PT.OTN ---
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 She was seen during her for complaints of left sided sciatica and SI pain. She is continuing to have these symptoms but is also noting urinary incontinence and pelvic pain with intercourse. Treatment Goals Patient/Caregiver Goals to improve strength, decrease pain, improve function and eliminate urinary incontinence Current Functional Impairments (Reported) Functional Limitations- Recreation/ limited with exercise due to Hobbies LBP and SI pain Functional Limitations- Other urinary incontinence and pelvic pain with intercourse PT-OP-C Subjective Start: 03/09/18 14:02 Freq: Status: Active Protocol: Document 12/07/18 11:30 [facility] (Rec: 12/12/18 16:33 [facility] [email or web address]) OP-PT Subjective Patient Comments Patient Comments Jackelyn reports she continues to have the low back pain and has been leaking more. She does want to try traction again today PT-OP-F Manual Assessment Start: 03/09/18 14:02 Freq: Status: Active Protocol: Document 03/09/18 13:00 [facility] (Rec: 03/10/18 11:09 [facility] [email or web address]) Manual Assessments Soft Tissue Assessment Soft Tissue Mobility Assessment tightness in the lumbar paraspinals + kenyetta test B Joint Mobility Assessment Joint Mobility Assessment + tests for SI instability including + april test for the SI unlocking B and + ASLR test elevated left pelvis exaggerated lumbar lordosis PT-OP-I Pelvic Floor Start: 03/09/18 14:02 Freq: Status: Active Protocol: Document 03/09/18 13:00 [facility] (Rec: 03/10/18 11:09 [facility] [email or web address]) Pelvic Floor Assessment Urine Pelvic Floor Surgery No Urinary Symptoms Urge Sensation,Falling Out Feeling/Heavy Leakage Cause Sneeze,Urge Other Leakage Causes sit-stand can also cause leakage Leaks Per Day constant leakage Voiding Frequency 10 times plus Nocturia 3 times per night Urine Pad Type Maxi Pad Pelvic Clock Pelvic Clock 12-3 Atrophy Pelvic Clock 3-6 Guarding,Hypertonic,Tightness Pelvic Clock 6-9 Tightness Pelvic Clock 9-12 Atrophy Pelvic Clock Other muscle guarding and spasm of the left greater than right illiococcygeus musculature and tightness in the coccygeus SEMG (uV) Baseline 20 Recruitment Pattern Poor/Slow Relaxation Poor/Slow Holding Poor/Slow Stability of Hold Poor/Slow SEMG Stability of Rest Poor/Slow Contraction Ability Manual Muscle Testing Left 1 Manual Muscle Testing Right 2 Manual Muscle Testing Anterior 3 Manual Muscle Testing Posterior 3 Muscle Endurance (Seconds) 3 Comments Pelvic Floor Comments elevated tone on EMG biofeedback at 20 uv initially , this tone only went slightly down with trial of contract relax. I started Jackelyn with stretching exercises for her pelvic floor and lateral hip rotation stretngthening as a way to gently recruit the pelvic floor without causing increased guarding. PT-OP-K Range of Motion Start: 03/09/18 14:02 Freq: Status: Active Protocol: Document 03/09/18 13:00 [facility] (Rec: 03/10/18 11:09 [facility] [email or web address]) Lumbar Spine Range of Motion Lumbar Spine Active Testing Position Standing Flexion 50 Lateral Flexion Left 10 Lateral Flexion Right 15 ROM Limitations Soft Tissue Tightness Comments exaggerated lumbar lordosis in the lumbar spine limits the amout of lumbar spine flexion Hip Goniometric Range of Motion Hip ROM Limitations Hip ROM Limitations Soft Tissue Tightness Comments iliopsoas tightness left greater than right + kenyetta test B PT-OP-M Strength Start: 03/09/18 14:02 Freq: Status: Active Protocol: Document 09/07/18 12:15 [facility] (Rec: 09/13/18 08:53 [facility] [email or web address]) Trunk Strength Trunk Manual Muscle Testing Core Stabilization demonstrating improved core activation, difficult to use the outer abdominal wall to flex her trunk as she tends to stay in extension in her lower lumbar spine PT-OP-Q Treatments Start: 03/09/18 14:02 Freq: Status: Active Protocol: Document 12/07/18 11:30 [facility] (Rec: 12/12/18 16:33 [facility] [email or web address]) Therapeutic Exercises Supine Exercises 9 Supine Exercise Name alfredo pose 7 Supine Exercise Name happy baby 6 Supine Exercise Name hamstring and piriformis stretch Sitting Exercises 1 Sitting Exercise Name seated lumbar segmental flexion Manual Therapy Treatment Soft Tissue Mobilization 3 Body Location MFR to the lumbar paraspinals in shilds pose following ultrasound Comments in alfredo pose position PT-OP-R Modalities Start: 08/11/18 09:23 Freq: Status: Active Protocol: Document 12/12/18 16:33 [facility] (Rec: 12/12/18 16:34 [facility] [email or web address]) Spinal Traction Traction Treatment Lumbar Method Mechanical Patient Position Hooklying Force Applied (Pounds) 80 Duration of Treatment (Minutes) 12 Heating Pad Applied Yes PT-OP-T Assessment and Plan Start: 03/09/18 14:02 Freq: Status: Active Protocol: Document 12/07/18 11:30 [facility] (Rec: 12/12/18 16:33 [facility] [email or web address]) Physical Therapy Assessment Assessment Summary Assessment still very tight in her lumbar paraspinals, tried to work into lumbar flexion in alfredo position. Decreased amount on lumbar traction back to 80 # Physical Therapy Plan Frequency and Duration Frequency of Treatment 1x/Week Duration of Treatment 8 Plan of Care Start Date 10/08/18 Plan of Care End Date 12/03/18 Next Visit Focus/Plan Next Note Type Progress Note Next Visit Plan continue with pelvic floor next visit and EMG biofeedback
--- NOTE | 2018-12-21 10:59 | PT.OTN ---
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 She was seen during her for complaints of left sided sciatica and SI pain. She is continuing to have these symptoms but is also noting urinary incontinence and pelvic pain with intercourse. Treatment Goals Patient/Caregiver Goals to improve strength, decrease pain, improve function and eliminate urinary incontinence Current Functional Impairments (Reported) Functional Limitations- Recreation/ limited with exercise due to Hobbies LBP and SI pain Functional Limitations- Other urinary incontinence and pelvic pain with intercourse PT-OP-C Subjective Start: 03/09/18 14:02 Freq: Status: Active Protocol: Document 12/21/18 10:53 [facility] (Rec: 12/21/18 10:59 [facility] [email or web address]) OP-PT Subjective Patient Comments Patient Comments pt reports today will be her last visit as she is undergoing both interstim and botox for the pelvic floor at [facility]. She is still feeling a lot of pressure in her sacral region PT-OP-F Manual Assessment Start: 03/09/18 14:02 Freq: Status: Active Protocol: Document 03/09/18 13:00 [facility] (Rec: 03/10/18 11:09 [facility] [email or web address]) Manual Assessments Soft Tissue Assessment Soft Tissue Mobility Assessment tightness in the lumbar paraspinals + kenyetta test B Joint Mobility Assessment Joint Mobility Assessment + tests for SI instability including + april test for the SI unlocking B and + ASLR test elevated left pelvis exaggerated lumbar lordosis PT-OP-I Pelvic Floor Start: 03/09/18 14:02 Freq: Status: Active Protocol: Document 03/09/18 13:00 [facility] (Rec: 03/10/18 11:09 [facility] [email or web address]) Pelvic Floor Assessment Urine Pelvic Floor Surgery No Urinary Symptoms Urge Sensation,Falling Out Feeling/Heavy Leakage Cause Sneeze,Urge Other Leakage Causes sit-stand can also cause leakage Leaks Per Day constant leakage Voiding Frequency 10 times plus Nocturia 3 times per night Urine Pad Type Maxi Pad Pelvic Clock Pelvic Clock 12-3 Atrophy Pelvic Clock 3-6 Guarding,Hypertonic,Tightness Pelvic Clock 6-9 Tightness Pelvic Clock 9-12 Atrophy Pelvic Clock Other muscle guarding and spasm of the left greater than right illiococcygeus musculature and tightness in the coccygeus SEMG (uV) Baseline 20 Recruitment Pattern Poor/Slow Relaxation Poor/Slow Holding Poor/Slow Stability of Hold Poor/Slow SEMG Stability of Rest Poor/Slow Contraction Ability Manual Muscle Testing Left 1 Manual Muscle Testing Right 2 Manual Muscle Testing Anterior 3 Manual Muscle Testing Posterior 3 Muscle Endurance (Seconds) 3 Comments Pelvic Floor Comments elevated tone on EMG biofeedback at 20 uv initially , this tone only went slightly down with trial of contract relax. I started Jackelyn with stretching exercises for her pelvic floor and lateral hip rotation stretngthening as a way to gently recruit the pelvic floor without causing increased guarding. PT-OP-K Range of Motion Start: 03/09/18 14:02 Freq: Status: Active Protocol: Document 03/09/18 13:00 [facility] (Rec: 03/10/18 11:09 [facility] [email or web address]) Lumbar Spine Range of Motion Lumbar Spine Active Testing Position Standing Flexion 50 Lateral Flexion Left 10 Lateral Flexion Right 15 ROM Limitations Soft Tissue Tightness Comments exaggerated lumbar lordosis in the lumbar spine limits the amout of lumbar spine flexion Hip Goniometric Range of Motion Hip ROM Limitations Hip ROM Limitations Soft Tissue Tightness Comments iliopsoas tightness left greater than right + kenyetta test B PT-OP-M Strength Start: 03/09/18 14:02 Freq: Status: Active Protocol: Document 09/07/18 12:15 [facility] (Rec: 09/13/18 08:53 [facility] [email or web address]) Trunk Strength Trunk Manual Muscle Testing Core Stabilization demonstrating improved core activation, difficult to use the outer abdominal wall to flex her trunk as she tends to stay in extension in her lower lumbar spine PT-OP-Q Treatments Start: 03/09/18 14:02 Freq: Status: Active Protocol: Document 12/21/18 10:53 [facility] (Rec: 12/21/18 10:59 [facility] [email or web address]) Manual Therapy Treatment Soft Tissue Mobilization 3 Body Location MFR to the lumbar paraspinals in shilds pose following ultrasound Comments prone over the body pillow Joint Mobilizations 2 Joint sacral mobilizations into counter nutation Comments MET and manual mobilizations Manual Techniques 2 Type manual Quadratus lumborum stretch and release Comments pt in sidelying with active ribcage rotation, treatment was bilateral 1 Type manual illiopsoas stretch in kenyetta test position PT-OP-R Modalities Start: 08/11/18 09:23 Freq: Status: Active Protocol: Document 12/12/18 16:33 [facility] (Rec: 12/12/18 16:34 [facility] [email or web address]) Spinal Traction Traction Treatment Lumbar Method Mechanical Patient Position Hooklying Force Applied (Pounds) 80 Duration of Treatment (Minutes) 12 Heating Pad Applied Yes PT-OP-T Assessment and Plan Start: 03/09/18 14:02 Freq: Status: Active Protocol: Document 12/21/18 10:53 [facility] (Rec: 12/21/18 10:59 [facility] [email or web address]) Physical Therapy Assessment Assessment Summary Assessment at this point in time Jackelyn has tried PT both for pelvic pain as well as urinary incontinence without success. She has also been treated for LBP and sacral pain that has not been improving. She will undergo interstimulation placement and will also receive botox at the same time. She will be discharged from PT at this time. Physical Therapy Plan Discharge Physical Therapy Discharge Reasons Patient Request Discharge Comments pt undergoing surgery
== END 2018-12-28 16:18 | disposition home or self-care (01) ==
LOC: PHYS 10:00
PROVIDERS: PCP Obstetrics & Gynecology; Visit Provider Obstetrics & Gynecology
DX: R10.2 Pelvic and perineal pain (principal)
CPT/HCPCS: 97012; 97035; 97110; 97112; 97140; 97161

== ENCOUNTER 2018-12-22 16:43 | Emergency (ER) | payer OTHER, SELFPAY ==
[2018-12-22 16:56] VITALS: BP 152/89; PULSE 92; RESP 15; TEMP 36.8; O2SAT 100; BMI 39.3
[2018-12-22 17:25] LABS: INR 0.9 (0.9-1.3); Prothrombin Time 10.3 SECONDS (10.1-12.7)
[2018-12-22 17:28] LABS: PTT Partial Thromboplastin Tim 34 SECONDS (26.4-36.2)
[2018-12-22 17:30] LABS: Add Manual Diff / Slide Review NO; Alanine Aminotransferase 23 IU/L (9-52); Albumin 4.7 g/dL (3.5-5.0); Albumin Globulin Ratio 1.4 (1.0-2.8); Alkaline Phosphatase 68 U/L (38-126); Aspartate Aminotransferase 24 IU/L (15-46); Basophils Absolute Auto 0 /uL (0-100); Basophils Percent Auto 0.3 % (0-2); Bilirubin Total 0.3 mg/dL (0.2-1.3); Blood Urea Nitrogen 15 mg/dL (7-17); Calcium 9.2 mg/dL (8.4-10.2); Carbon Dioxide 30 mmol/L (22-32); Chloride 100 mmol/L (98-107); Eosinophils Absolute Auto 100 /uL (0-450); Eosinophils Percent Auto 1.2 % (2-4); Estimated Glomerular Filt Rate > 60.0 mL/min (>60); Globulin 3.3 g/dL (1.7-4.1); Glucose 98 mg/dL (70-100); HEMOLYSIS 22 (0-50); Hematocrit 39.7 % (36-46); Hemoglobin 13.6 g/dL (12.0-16.0); Lipase 95 U/L (23-300); Lymphocytes Absolute Auto 2400 /uL (1100-4500); Lymphocytes Percent Auto 29.8 % (25-40); Mean Corpuscular HGB Conc 34.3 % (30-36); Mean Corpuscular Hemoglobin 29.9 PG (26-34); Mean Corpuscular Volume 87.3 fL (80-100); Monocytes Absolute Auto 500 /uL (0-900); Monocytes Percent Auto 6.3 % (3-14); Neutrophils Absolute Auto 5000 /uL (1500-7000); Neutrophils Percent Auto 62.4 % (50-75); Platelet Count 251 X10^3/uL (150-400); Potassium 3.9 mmol/L (3.4-5.1); Red Blood Cell Count 4.55 X10^6/uL (4.0-5.2); Red Cell Distribution Width 12.6 % (11.6-14.8); Sodium 139 mmol/L (137-145)
--- NOTE | 2018-12-22 17:33 | ED.ABDPAIN ---
HPI - Abdominal Pain <Kandice Vanessa PA-C - Last Filed: 12/22/18 21:42> General Chief Complaint: Abdominal Pain Stated Complaint: left side abdominal pain Time Seen by Provider: 12/22/18 17:01 Source: patient Mode of arrival: Ambulatory Limitations: no limitations History of Present Illness HPI narrative: This 28-year-old female comes to ED secondary to left flank/upper quadrant pain which started 6 days ago. She states that she has had 2 episodes where this got worse following after eating including today, other times food has not seem to affect it. Also got worse when she was sitting at her desk today. She states that the pain has been dull, constant, able to go about her activities until today when it became more sudden and sharp. She states that pain is worse at baseline and it was previously, and she continues to have intermittent sharp pain in the left flank area. She denies any fever, chills, sweats. No cough or recent illness. No chest pain or dyspnea. She states that she has some chronic abdominal pain, intermittent loose stools or constipation where she will only once a week. She also has a history of urinary retention and nerve issues for which she is getting workup for an implantable stimulator. She states she has some intermittent bleeding from hemorrhoids, no new blood in the stools last couple of days. She denies any dysuria, frequency or urgency. She denies any new rashes. She states she does have some chronic left sided thoracic and arm pain and numbness which are unchanged, denies any new injury. She does have a [id number] and 3-year-old whom she cares for, but denies any new injury Related Data Home Medications Medication Instructions Recorded Confirmed atomoxetine 60 mg PO QAM 12/22/18 12/22/18 atomoxetine [Strattera] 60 mg PO DAILY 12/22/18 metformin 500 mg PO BID 12/22/18 12/22/18 oxybutynin chloride 10 mg PO DAILY 12/22/18 12/22/18 ranitidine HCl 150 mg PO BID 12/22/18 12/22/18 sertraline 150 mg PO DAILY 12/22/18 12/22/18 Previous Rx's Medication Instructions Recorded meloxicam [Mobic] 15 mg PO DAILY #14 tab 12/22/18 Allergies Allergy/AdvReac Type Severity Reaction Status Date / Time No Known Drug Allergies Allergy Verified 12/22/18 16:56 Review of Systems <Kandice Vanessa PA-C - Last Filed: 12/22/18 21:42> Review of Systems ROS Unobtainable: All systems reviewed & are unremarkable except as noted in HPI and below Patient History <Kandice Vanessa PA-C - Last Filed: 12/22/18 21:42> Medical History (Updated 12/22/18 @ 19:07 by Kandice Vanessa PA-C) Alternating constipation and diarrhea (Acute) Chronic left-sided thoracic back pain (Acute) GERD (gastroesophageal reflux disease) (Acute) Major depression (Acute) Pelvic floor dysfunction (Acute) Urinary retention with incomplete bladder emptying (Acute) Surgical History (Updated 12/22/18 @ 17:53 by Kandice Vanessa PA-C) Status post (Acute) Status post laparoscopic surgery (Resolved) Social History Smoking Status: Former smoker alcohol intake frequency: holidays/special occasions only Substance Use Type: does not use Exam <Kandice Vanessa PA-C - Last Filed: 12/22/18 21:42> Narrative Exam Narrative: GENERAL APPEARANCE: Patient intermittently appears uncomfortable and tearful HEENT: PERRL, EOMI, no scleral icterus NECK: Supple LUNGS: Clear to auscultation bilaterally. HEART: Rate and rhythm regular, normal S1 and S2, no S3 or S4. ABDOMEN: Soft, nondistended, bowel sounds present x 4 quadrants, no masses palpable, no hepatosplenomegaly. Mild generalized tenderness, moderate left upper quadrant and marked left CVAT. No guarding or rebound EXTREMITIES: No edema, no cyanosis DERMATOLOGIC: No jaundice or exanthem NEUROLOGIC: Alert and oriented with normal speech and coordination Initial Vital Signs Initial Vital Signs: Vital Signs Temperature 98.3 F 12/22/18 16:56 Pulse Rate 92 H 12/22/18 16:56 Respiratory Rate 15 12/22/18 16:56 Blood Pressure 152/89 H 12/22/18 16:56 Pulse Oximetry 100 12/22/18 16:56 <Kemal Sung DO - Last Filed: 12/23/18 07:11> Initial Vital Signs Initial Vital Signs: Vital Signs Temperature 98.3 F 12/22/18 16:56 Pulse Rate 92 H 12/22/18 16:56 Respiratory Rate 15 12/22/18 16:56 Blood Pressure 152/89 H 12/22/18 16:56 Pulse Oximetry 100 12/22/18 16:56 Course <Kandice Vanessa PA-C - Last Filed: 12/22/18 21:42> Course Additional Information: No acute findings on lab work or CT. Patient reports feeling improved at the time of discharge. Unclear whether this is related at all to her chronic left-sided pain in, or perhaps musculoskeletal though she does not remember any specific injury. Could also be some atypical reflux as she does have issues with that and pantoprazole may have helped. She agreed to return if any acute changes or new symptoms such as profuse vomiting, otherwise she will arrange for short-term follow-up with her PCP. Orders Ordered: Discontinued Medications Ketorolac Tromethamine (Toradol) 30 mg IV NOW ONE Stop: 12/22/18 17:47 Last Admin: 12/22/18 17:56 Dose: 30 mg Documented by: BTONER Pantoprazole Sodium (Protonix) 40 mg IV NOW ONE Stop: 12/22/18 17:54 Last Admin: 12/22/18 17:56 Dose: 40 mg Documented by: BTONER Vital Signs Vital signs: Vital Signs - 8 hr 12/22/18 16:56 12/22/18 19:19 Temperature 98.3 F Pulse Rate 92 H 93 H Respiratory Rate 15 Blood Pressure 152/89 H 125/70 Pulse Oximetry 100 97 <Kemal Sung DO - Last Filed: 12/23/18 07:11> Orders Ordered: Discontinued Medications Ketorolac Tromethamine (Toradol) 30 mg IV NOW ONE Stop: 12/22/18 17:47 Last Admin: 12/22/18 17:56 Dose: 30 mg Documented by: BTONER Pantoprazole Sodium (Protonix) 40 mg IV NOW ONE Stop: 12/22/18 17:54 Last Admin: 12/22/18 17:56 Dose: 40 mg Documented by: BTONER Vital Signs Vital signs: Vital Signs - 8 hr 12/22/18 16:56 12/22/18 19:19 Temperature 98.3 F Pulse Rate 92 H 93 H Respiratory Rate 15 Blood Pressure 152/89 H 125/70 Pulse Oximetry 100 97 MDM - Abdominal Pain <Kandice Vanessa PA-C - Last Filed: 12/22/18 21:42> Lab Data Attestation: I reviewed the patient's lab results. Result diagrams: 12/22/18 17:05 12/22/18 17:05 Labs: Lab Results 12/22/18 12/22/18 12/22/18 Range/Units 17:05 17:05 17:05 WBC 8.0 (4.5-11.0) X10^3/uL RBC 4.55 (4.0-5.2) X10^6/uL Hgb 13.6 (12.0-16.0) g/dL Hct 39.7 (36-46) % MCV 87.3 (80-100) fL MCH 29.9 (26-34) PG MCHC 34.3 (30-36) % RDW 12.6 (11.6-14.8) % Plt Count 251 (150-400) X10^3/uL Neut % (Auto) 62.4 (50-75) % Lymph % (Auto) 29.8 (25-40) % [place] % (Auto) 6.3 (3-14) % Eos % (Auto) 1.2 L (2-4) % Baso % (Auto) 0.3 (0-2) % Neut # (Auto) 5000 (5562-0093) /uL Lymph # (Auto) 2400 (8027-9934) /uL [place] # (Auto) 500 (0-900) /uL Eos # (Auto) 100 (0-450) /uL Baso # (Auto) 0 (0-100) /uL PT 10.3 (10.1-12.7) SECONDS INR 0.9 (0.9-1.3) APTT 34 (26.4-36.2) SECONDS Sodium 139 (137-145) mmol/L Potassium 3.9 (3.4-5.1) mmol/L Chloride 100 (98-107) mmol/L Carbon Dioxide 30 (22-32) mmol/L BUN 15 (7-17) mg/dL Creatinine 0.60 (0.52-1.04) mg/dL Estimated GFR > 60.0 (>60) mL/min BUN/Creatinine Ratio 25.0 H (6-22) Glucose 98 (70-100) mg/dL Calcium 9.2 (8.4-10.2) mg/dL Total Bilirubin 0.3 (0.2-1.3) mg/dL AST 24 (15-46) IU/L ALT 23 (9-52) IU/L Alkaline Phosphatase 68 (38-126) U/L Total Protein 8.0 (6.3-8.2) g/dL Albumin 4.7 (3.5-5.0) g/dL Globulin 3.3 (1.7-4.1) g/dL Albumin/Globulin Ratio 1.4 (1.0-2.8) Lipase 95 (23-300) U/L Point of care testing: Point of Care Testing Test Results Negative Urine Dip Bedside Urine Glucose 100 mg/dl Bedside Urine Bilirubin - Negative Bedside Urine Ketone - Negative Urine Specific [place] 1.010 Bedside Urine Occult Blood - Negative Bedside Urine pH 6.5 Bedside Urine Protein - Negative Bedside Urine Urobilinogen - Negative Bedside Urine Nitrite - Negative Bedside Urine Leukocytes - Negative Esterase Imaging Data CT scan - abdomen: Radiologist's impression: [place] [address] CT Scan Report Signed Patient: Jackelyn Payne LMR#: [id number] : 1990Acct:[id number] Age/Sex: te of Service: 12/22/18 Loc: ED Accession Number: [id number] Procedure: CT kidney ureter bladder (KUB) Ordering Provider: Kandice Vanessa P.A-C PROCEDURE: CT KIDNEY URETER BLADDER (KUB) INDICATIONS: L. flank/UQ pain TECHNIQUE: Noncontrast 5 mm thick sections acquired from the diaphragms to the symphysis. 5 mm thick coronal and sagittal reformats were then performed. For radiation dose reduction, the following was used: automated exposure control, adjustment of mA and/or kV according to patient size. COMPARISON: None. FINDINGS: Image quality: Excellent. Lung bases: Lung bases are clear. Heart size is normal. Urinary system: Both kidneys are normal in size. Tiny nonobstructing kidney stones are seen within the right kidney, as on series 2 image 45, which measure approximately 1 mm. No hydronephrosis or perinephric fat stranding. Both ureters appear non-dilated throughout their expected courses. Bladder wall thickness is normal; no calcified bladder stones. Other solid organs: Liver is normal in size. Gallbladder is largely collapsed at the time of this study. Pancreas is normal in contours. Spleen is normal in size. No adrenal nodules. Peritoneum and bowel: Unenhanced bowel loops demonstrate normal wall thickness and caliber. No free fluid or air. Incidental note is made of a normal-appearing appendix. Nodes and vessels: No retroperitoneal or mesenteric adenopathy by size criteria. Aorta and inferior vena cava are normal in caliber. Abdominal wall: No ventral hernias. Pelvis: No free pelvic fluid. No inguinal hernias or adenopathy. Bones: No suspicious bony lesions. No vertebral body compression fractures. IMPRESSION: No imaging explanation is found for this patient's presenting symptoms. No hydronephrosis can be seen. No ureteral stones. Tiny nonobstructing right-sided kidney stones are seen. Incidental note is made of: Normal appendix Dictated by: Pepe Chand M.D. on 12/22/2018 at 17:22 Approved by: Pepe Chand M.D. on 12/22/2018 at 17:24 ECG Data Attestation: I personally reviewed and interpreted this ECG as follows: (Normal sinus rhythm, normal axis, rate 97) <Kemal Sung DO - Last Filed: 12/23/18 07:11> Lab Data Labs: Lab Results 12/22/18 12/22/18 12/22/18 Range/Units 17:05 17:05 17:05 WBC 8.0 (4.5-11.0) X10^3/uL RBC 4.55 (4.0-5.2) X10^6/uL Hgb 13.6 (12.0-16.0) g/dL Hct 39.7 (36-46) % MCV 87.3 (80-100) fL MCH 29.9 (26-34) PG MCHC 34.3 (30-36) % RDW 12.6 (11.6-14.8) % Plt Count 251 (150-400) X10^3/uL Neut % (Auto) 62.4 (50-75) % Lymph % (Auto) 29.8 (25-40) % [place] % (Auto) 6.3 (3-14) % Eos % (Auto) 1.2 L (2-4) % Baso % (Auto) 0.3 (0-2) % Neut # (Auto) 5000 (3462-9636) /uL Lymph # (Auto) 2400 (0988-4432) /uL [place] # (Auto) 500 (0-900) /uL Eos # (Auto) 100 (0-450) /uL Baso # (Auto) 0 (0-100) /uL PT 10.3 (10.1-12.7) SECONDS INR 0.9 (0.9-1.3) APTT 34 (26.4-36.2) SECONDS Sodium 139 (137-145) mmol/L Potassium 3.9 (3.4-5.1) mmol/L Chloride 100 (98-107) mmol/L Carbon Dioxide 30 (22-32) mmol/L BUN 15 (7-17) mg/dL Creatinine 0.60 (0.52-1.04) mg/dL Estimated GFR > 60.0 (>60) mL/min BUN/Creatinine Ratio 25.0 H (6-22) Glucose 98 (70-100) mg/dL Calcium 9.2 (8.4-10.2) mg/dL Total Bilirubin 0.3 (0.2-1.3) mg/dL AST 24 (15-46) IU/L ALT 23 (9-52) IU/L Alkaline Phosphatase 68 (38-126) U/L Total Protein 8.0 (6.3-8.2) g/dL Albumin 4.7 (3.5-5.0) g/dL Globulin 3.3 (1.7-4.1) g/dL Albumin/Globulin Ratio 1.4 (1.0-2.8) Lipase 95 (23-300) U/L Point of care testing: Point of Care Testing Test Results Negative Urine Dip Bedside Urine Glucose 100 mg/dl Bedside Urine Bilirubin - Negative Bedside Urine Ketone - Negative Urine Specific [place] 1.010 Bedside Urine Occult Blood - Negative Bedside Urine pH 6.5 Bedside Urine Protein - Negative Bedside Urine Urobilinogen - Negative Bedside Urine Nitrite - Negative Bedside Urine Leukocytes - Negative Esterase Discharge Plan Departure Patient Disposition: Home Clinical Impression: Acute left flank pain Discharge Date/Time: 12/22/18 19:20 Instructions: DI for Flank Pain Activity Restrictions/Additional Instructions: Since you are feeling better, you can return home tonight. Please rest. I have prescribed a once daily anti-inflammatory pain medicine for you to try called meloxicam. You can pick that up tonight. Please do not take other NSAIDs with it. Please follow-up tomorrow as you have planned and discuss whether a trial of medicine for muscle spasm or nerve pain may be helpful. You may also wish to discuss whether to change the your acid reflux medicine since the stronger medicine we gave you to night may have helped somewhat. As we talked about, you should return if you have any acutely worsening symptoms in the interim. Prescriptions: New meloxicam [Mobic] 15 mg tablet 15 mg PO DAILY Qty: 14 RF: 0 No Action metformin 500 mg tablet 500 mg PO BID RF: 0 oxybutynin chloride 10 mg tablet extended release 24hr 10 mg PO DAILY RF: 0 sertraline 100 mg tablet 150 mg PO DAILY RF: 0 ranitidine HCl 150 mg tablet 150 mg PO BID RF: 0 atomoxetine [Strattera] 60 mg capsule 60 mg PO DAILY RF: 0 atomoxetine 60 mg capsule 60 mg PO QAM RF: 0 Referrals: [facility] [Outside] <Kemal Sung, DO - Last Filed: 12/23/18 07:11> Sign Out Provider Sign Out Attestation: I was available for consultation during this patient's emergency department visit. This chart is signed by myself for administrative purposes only. I did not have direct contact with this patient during this visit. They were seen independently by the APC.
--- NOTE | 2018-12-22 17:46 | DI.CT.S_ITS ---
PROCEDURE: CT KIDNEY URETER BLADDER (KUB) INDICATIONS: L. flank/UQ pain TECHNIQUE: Noncontrast 5 mm thick sections acquired from the diaphragms to the symphysis. 5 mm thick coronal and sagittal reformats were then performed. For radiation dose reduction, the following was used: automated exposure control, adjustment of mA and/or kV according to patient size. COMPARISON: None. FINDINGS: Image quality: Excellent. Lung bases: Lung bases are clear. Heart size is normal. Urinary system: Both kidneys are normal in size. Tiny nonobstructing kidney stones are seen within the right kidney, as on series 2 image 45, which measure approximately 1 mm. No hydronephrosis or perinephric fat stranding. Both ureters appear non-dilated throughout their expected courses. Bladder wall thickness is normal; no calcified bladder stones. Other solid organs: Liver is normal in size. Gallbladder is largely collapsed at the time of this study. Pancreas is normal in contours. Spleen is normal in size. No adrenal nodules. Peritoneum and bowel: Unenhanced bowel loops demonstrate normal wall thickness and caliber. No free fluid or air. Incidental note is made of a normal-appearing appendix. Nodes and vessels: No retroperitoneal or mesenteric adenopathy by size criteria. Aorta and inferior vena cava are normal in caliber. Abdominal wall: No ventral hernias. Pelvis: No free pelvic fluid. No inguinal hernias or adenopathy. Bones: No suspicious bony lesions. No vertebral body compression fractures. IMPRESSION: No imaging explanation is found for this patient's presenting symptoms. No hydronephrosis can be seen. No ureteral stones. Tiny nonobstructing right-sided kidney stones are seen. Incidental note is made of: Normal appendix Dictated by: Pepe Chand M.D. on 12/22/2018 at 17:22 Approved by: Pepe Chand M.D. on 12/22/2018 at 17:24
[2018-12-22] MEDS: KETOROLAC 60 MG/2 ML VIAL 30 MG IV (17:56)
[2018-12-22] MEDS: PANTOPRAZOLE 40 MG VIAL IV (17:56)
[2018-12-22 19:19] VITALS: BP 125/70; PULSE 93; O2SAT 97
== END 2018-12-22 19:20 | disposition home or self-care (01) ==
PROVIDERS: Emergency Medicine; Emergency Provider Internal Medicine
DX: R10.9 Unspecified abdominal pain (principal)
CPT/HCPCS: 36415; 74176; 80053; 81003; 81025; 83690; 85025; 85610; 85730; 93005; 96374; 96375; 99282; 99285; C9113; J1885

== ENCOUNTER → 2019-10-06 14:33 | Outpatient (CLI) | payer OTHER, SELFPAY ==
[2019-10-07 18:26] LABS: COVID19 Sendout Not Detected (Not Detect)
== END ==
PROVIDERS: PCP Preventive Medicine Public Health & General Preventive Medicine; Visit Provider Physician Assistant
DX: Z11.59 Encounter for screening for other viral diseases (principal)
CPT/HCPCS: 87635